=== PATIENT | male | born 1960 | race Caucasian/White ===

== ENCOUNTER 2025-01-14 02:48 | Inpatient (IN) | payer MEDICARE, OTHER, SELFPAY ==
[2025-01-13 21:08] VITALS: BP 138/80
[2025-01-13 21:12] VITALS: BP 138/80
[2025-01-13 21:55] LABS: Glucose - Point of Care 169 mg/dl (70-99)
[2025-01-13 21:56] VITALS: BP 149/68
[2025-01-13 21:58] LABS: Hematocrit 38.6 % (39.0-52.0); Hemoglobin 12.3 g/dL (13.0-18.0); Mean Corp Hgb Conc. 31.9 g/dL (33.0-37.0); Mean Corpuscular Volume 88.5 fL (80.0-94.0); Nucleated Red Blood Cells % 0 % (-); Platelet Count 376 10^3/uL (130-400); Red Cell Dist. Width 14.0 % (11.5-14.5)
[2025-01-13 22:00] VITALS: BP 150/83
--- NOTE | 2025-01-13 22:07 | VATNOTE ---
pt unsure if his port is power injectable. Stated it was inserted in 2017 at [place]. Attempted to access CXR films in past, 2017, and [facility] not providing.
[2025-01-13 22:11] LABS: ALT (SGPT) 18 U/L (0-50); AST (SGOT) 20 U/L (17-59); Albumin 3.7 g/dl (3.5-5.0); Alkaline Phosphatase 121 U/L (38-126); Blood Urea Nitrogen 18 mg/dl (9-20); Calcium 8.8 mg/dl (8.4-10.2); Carbon Dioxide 26 mmol/L (22-30); Chloride 107 mmol/L (98-107); Estimated Creatinine Clearance 116 ml/min; Glucose 176 mg/dl (70-99); Potassium 4.5 mmol/L (3.5-5.1); Sodium 138 mmol/L (135-145); Total Protein 6.9 g/dl (6.3-8.2); Urine Character Cloudy (Clear); eGFR > 60.00
[2025-01-13 22:18] LABS: Urine Squamous Cell 0-2 /LPF (Few)
[2025-01-13 22:19] LABS: Urine Red Blood Cell 50-60 /HPF (0-2); Urine White Cell 30-40 /HPF (0-5)
[2025-01-13 23:26] VITALS: BP 150/81
--- NOTE | 2025-01-13 23:43 | ED.GENMED ---
History of Present Illness
General
Chief Complaint: Dizziness
Source: patient
Exam Limitations: none
Time Seen by Provider: 01/13/25 22:10
Nursing documentation reviewed up to this point in time: agreed with
History of Present Illness
History of Present Illness:
Patient to ED with complaint of weakness, urinary frequency, burning, urgency. Symptoms started 2 weeks ago and continue to worsen. Denies fever but reports chills. +nausea, no vomiting or diarrhea. Brought to ED via EMS for eval.
Past History
Past History
ED Past Medical History: Cancer (colon Ca), CHF, HTN, Hypercholesterolemia, NIDDM, Other (Duodenal ulcers), Other (Colon rectal cancer status post colostomy, chronic back pain, diabetes, recurrent UTIs) and Other (chronic pain, kidney stones,
urinary tract infections, dizziness, Ji's palsy)
ED Past Surgical History: Bowel resection (For treatment of rectal cancer, Ileostomy, Chronic sacral decub and abd open wound) and Other ( Rectal surgery, umbilical hernia surgery, Colostomy hernia repair)
Social History
Tobacco: Non-smoker
Alcohol: Occasional
Personal:
Living: alone
Employment: Disabled
Family History
Family History: Other (Noncontributory)
Review of Systems
Review of Systems
Allergies reviewed?: Yes
All Other Systems: ROS reviewed and negative except as documented in HPI and ROS
Constitutional: Reports fatigue
EENT: Reports no symptoms
Respiratory: Reports no symptoms
Cardiac: Reports no symptoms
ABD/GI: Reports nausea
: Reports dysuria, frequency, flank pain (bilateral) and urgency
Musculoskeletal: Reports no symptoms
Skin: Reports no symptoms
Neurological: Reports weakness
Psychiatric: Reports no symptoms
Phy Exam
General Physical Exam
General Presentation: moderate distress
General age: appears older than age
General Skin: warm and dry
General Habitus: debilitated
Cardiovascular Exam
Cardiovascular Exam: regular rate/rhythm
Pulmonary Exam
Pulmonary Exam: lungs clear and no respiratory distress
Gastrointestinal Exam
Gastrointestinal Exam: normal bowel sounds, non tender, soft, no organomegaly and non distended
Skin Exam
Skin Exam: normal color, warm/dry and no rash
Psychiatric Exam
Psychiatric Exam: normal mood/affect
Sepsis
Sepsis Screening
Sepsis Assessment: Sepsis Ruled Out
Sepsis Screen
Sepsis Screen: Sepsis Ruled Out
Date: 01/14/25
Time: 16:32
Course
Orders/Labs/Results
Orders:
Orders
01/13/25 21:10
Electrocardiogram (*1) Urgent
Reason for Study: Other
Other Reason for Exam: Possible Sepsis
Cardiac Monitoring- Treatment ONCE
IV Insert/Care/Rem.- Treatment PRN
O2 Therapy [RESP] Urgent
Titrate/Wean O2 to maintain O2 sat greater than (%): 93
Special Instructions: TO MAINTAIN CONTINUOUS O2 SATS > OR = 93%
Pulse Ox/cont/shift [RESP] Urgent
Quantity: 1
Special Instructions: CONTINUOUS
01/13/25 21:11
EKG- Treatment ONCE
01/13/25 21:[address] Non Medication Order As Directed
Physician Order: ok to draw 1 set culture from chest wall port
Above order entered?: Yes
01/13/25 21:43
Complete Blood Count/With Diff Urgent
Comprehensive Metabolic Panel Urgent
Lactic Acid Q4H
Comment: ON ICE, CANCEL 2ND ORDER IF FIRST LACTIC ACID LEVEL <2
Urinalysis Reflex To Culture Urgent
Date Specimen was Collected: 01/13/25
Time Specimen was Collected: 21:11
Urine Microscopic Reflex Cult Urgent
Blood Culture Q20M
CLEO Source: Blood/Venous
Specimen Description:
Comment: Urgent from separate sites. If patient screens positive for possible sepsis
Blood Culture Q20M
CLEO Source: Blood/Venous
Specimen Description:
Comment: Urgent from separate sites. If patient screens positive for possible sepsis
Urine Culture Urgent
CLEO Source: U
Specimen Description:
Date Specimen was Collected: 01/13/25
Time Specimen was Collected: 21:11
01/13/25 22:28
CT Abd/pel Without Iv Or Oral Urgent
Comment:
Reason For Exam: bilat flank pain UTI sx
01/13/25 22:46
EKG [Electrocardiogram (*1)] Urgent
Reason for Study: Atrial Flutter
EKG- Treatment ONCE
01/14/25 00:45
Piperacillin/Tazo 3.375 Gram [Zosyn] 3.375 gram in 50 ml IV NOW
01/14/25 02:21
Admit/Transfer Patient As Directed
Co-Sign Provider:
Level of Care: Inpatient admission
Assign to:: Telemetry
Physician / Group: Mayra/Hospitalist
Diagnosis: Complicated UTI and Bowel enterocutaneous fistula
Reason for Telemetry: Arrhythmia
Date to Stop Telemetry: 01/17/25
Time to Stop Telemetry: 11:00
Reason for Hospitalization: Complicated UTI and Bowel enterocutaneous fistula
Expected length of stay greater than two midnights?: Yes
ELOS- Estimated Length of Stay in days: 3
I certify the patient meets the requirements for IP care: Yes
PRN Pain Medication Management As Directed
May give lesser potent ordered pain med per pt: Yes
preference::
Protocol:: Medication orders for pain may be administered in a
manner that supports deferring to patient preference
when the pt is:
- Requesting an ordered lesser potent pain medication.
Least to most potent pain medications are defined
as: acetaminophen < NSAID < tramadol < opioids
(morphine, oxycodone, hydromorphone).
- Requesting a lesser dose of the same medication IF
ORDERED.
- Requesting a less intrusive route of administration
if both routes are prescribed by the provider (PO <
IV).
01/14/25 02:23
Code Status As Directed
Resuscitation Status: Full Code
01/14/25 03:13
HYDROmorphone [Dilaudid] 1 mg IV NOW STA
01/14/25 03:16
0.9% Sodium Chloride 1000 ml [Nss] 1,000 ml IV 75 mls/hr
01/14/25 03:31
Bisacodyl [Dulcolax] 10 mg RECTAL [id number] PRN
Dextrose 50%-Water [Dextrose 50% Syringe] 12.5 grams IV [id number] PRN
Docusate W/Senna [Senokot-S] 1 tablet PO BIDPRN PRN
Glucagon [GlucaGen] 1 mg IM PRN PRN
HYDROmorphone [Dilaudid] 1 mg IV Q4HPRN PRN
Polyethylene Glycol Powder [Miralax] 17 grams PO DAILYPRN PRN
01/14/25 03:31
Consult Notification Routine
Specialty to Notify: Urology
Date consulting provider notified: 01/14/25
Time consulting provider notified: 09:12
Notified:: Other
Comment: tiger text
SURGICAL CONSULT Routine
Consulting Provider: Jesse Love
Was physician already notified: Yes
Reason for consult: enterocutaneous fistula anterior mid abdomen
UROLOGY CONSULT Routine
Consulting Provider: Shaw Taylor
Was physician already notified: No
Comment: UTI, kidney stones
Activity As Directed
Activity Level: With Assistance
Bedside Glucose Monitoring As Directed
Frequency: AC&HS
Additional Instructions:: Change to q6h if pt on TPN, tube feeding or not eating
Nursing to Place Non Medication Order As Directed
Physician Order: Pharmacy to perform med rec in morning and call attending once reconciled to add med list
Above order entered?: Yes
Ostomy Care As Directed
Comment: ileostomy care
Vital Signs As Directed
Frequency: Per unit guidelines
Pulse Ox/spot Check [RESP] Routine
Quantity: 1
DX Deep Vein Thrombosis Video Routine
01/14/25 Breakfast
Cholesterol Lowering
At Your Request: Full Participation
Does patient need a safe tray?: No
Cholesterol Lowering: Sodium, 2 Gram
Piperacillin/Tazo 3.375 Gram [Zosyn] 3.375 gram in 50 ml IV Q6H
01/14/25 06:12
Basic Metabolic Panel IN AM
Complete Blood Count/With Diff IN AM
Glycohemoglobin (HgbA1c) IN AM
01/14/25 07:30
Insulin Aspart Corrective Low [Novolog Flexpen-Low Resistance] See Protocol SC AC
01/17/25 11:00
DC Protocol for Telemetry ONCE
Abnormal Lab Results
01/13/25 01/13/25
21:43 21:53
WBC 11.8 H 10^3/uL
(4.8-10.8)
RBC 4.36 L 10^6/uL
(4.70-6.10)
Hgb 12.3 L g/dL
(13.0-18.0)
Hct 38.6 L %
(39.0-52.0)
MCHC 31.9 L g/dL
(33.0-37.0)
Abs Immat Gran (auto) 0.1 H 10^3/uL
(0-0.05)
Absolute Neuts (auto) 10.4 H 10^3/uL
(1.4-6.5)
Absolute Lymphs (auto) 0.7 L 10^3/uL
(1.2-3.4)
Neutrophils % 88.6 H %
(42.2-75.2)
Lymphocytes % 6.3 L %
(20.5-51.1)
Glucose 176 H mg/dl
(70-99)
Ur Occult Blood Reflex 4+ A
(Negative)
Leukocyte Esterase Rfl 3+ A
(Negative)
Urine RBC 50-60 A /HPF
(0-2)
Urine WBC (Reflex) 30-40 A /HPF
(0-5)
Urine Bacteria (Reflex) Many A
(Negative)
Urine Albumin (Reflex) 2+ A
(Neg - Trace)
POC Glucose 169 H mg/dl
(70-99)
01/13/25 21:43
01/13/25 21:43
Vital Signs
Initial and Last Documented VS:
Initial Vital Signs
BP
138/80
01/13/25 21:08
Last Documented Vital Signs
Temp Pulse Resp BP Pulse Ox
97.8 F 118 14 99/59 92
01/13/25 21:12 01/14/25 15:30 01/14/25 15:30 01/14/25 15:00 01/14/25 15:30
*Pulse Oximetry
SaO2: 97
Oxygen Mode of Delivery: Room air
Patient hypoxic: no
*Critical Care Note
Total Time (30-74mins, 75-104mins- exclusive of procedures): Not Applicable
Update Note
Update Note:
Patient to ED wtih complaint of weakness, UTI symptoms x 2 weeks. Denies fever but reports chills. Labs reviewed. WBC 11.8, lactic normal. He remains afebrile. CT tonight: Suspected smal bowel enterocutaneous fisturla anterior mid abd. Also
wth 3mmleft UVJ stone Patient will be admitted to hospitalist. Dilshad ordered. Consult placed to Dr. Love.
ED Attending Note
-
Portions of this chart may have been created with voice recognition software.� Occasional wrong word or��sound alike� substitutions may have occurred due to the inherent limitations of voice recognition software.
Discharge Plan
Departure
Patient Disposition: Admit
Date of Disposition: 01/14/25
Time of Disposition: 00:45
Presentation/result/management discussed w/ accepting MD/DO: Hospitalist
Patient with high blood pressure during this ER visit?: No
Condition: Fair
Covid-19: Not Applicable
Discharge Problem:
Enterocutaneous fistula, UTI (urinary tract infection), Weakness
Interventions
Interventions:
*Risk Screen - Suicide Last Done: 01/13/25 21:12
*General Assessment Last Done: 01/13/25 21:12
*Neglect/Abuse Screening Last Done: 01/13/25 21:12
*ED- Fall Risk Assessment Last Done: 01/13/25 21:12
*ED COVID-19 Vaccine History Last Done: 01/13/25 21:12
ED- Neurological Assessment Last Done: 01/13/25 21:12
ED Swallowing Screen Last Done: 01/14/25 09:25
[2025-01-14] VITALS (18 sets, daily range): BP systolic 73–152; BP diastolic 43–94; BMI 37.2
[2025-01-14] MEDS: ZOSYN 50 IV ×5 (01:10→23:02)
--- NOTE | 2025-01-14 01:55 | HPS.HSE ---
Family Physician
-
Family Physician: NOT KNOW UNKNOWN - PT DOES
Chief Complaint
-
Weakness and urinary frequency
History of Present Illness
The patient is a 64-year-old gentleman with past medical history significant for colon cancer status post bowel resection, ileostomy, multiple abdominal surgeries, CHF, hypertension, hyperlipidemia, diabetes, chronic pain on oral Dilaudid and high
doses of fentanyl patches (managed by pain specialist for 20 years), who presented to the emergency department via EMS secondary to complaints of weakness, urinary frequency, dysuria, that started 2 weeks prior and continued to worsen. He has been
having chills and nausea associated with the symptoms. He denies fever, no vomiting, no diarrhea.He lives at home alone and has a regular tube dispatcher that comes to house daily. He is mostly non-ambulatory.
Medical History
Past Medical History
Past Medical History: Reports Other
Additional Past Medical History:
depression
GERSON
GERD
HLD
HTN
BPH
COPD
vertigo
anemia
DVT
CAD
CHF
colon ca
chronic abdomen wound
type 2 Dm
Past Surgical History: Reports Other
Additional Past Surgical History:
colon resection with ileostomy
hernia repair
Bowel resection (For treatment of rectal cancer, Ileostomy, Chronic sacral decub and abd open wound) and Other ( Rectal surgery, umbilical hernia surgery, Colostomy hernia repair)
Social History
Tobacco: Non-smoker
Alcohol: None
Drug: None
Personal: Single
Living: Alone (has tube dispatcher)
Family History
Family History: Not pertinent
Allergies / Home Medications
Allergies reflects when Allergies were last updated in [facility].
Home Medications with original date entered in [facility]
Allergy/Medication List:
Allergies
Allergy/AdvReac Type Severity Reaction Status Date / Time
No Known Allergies Allergy Verified 05/23/23 04:59
Home Medications
aspirin 81 mg chewable tablet 81 mg PO DAILY Blood Clot Prevention/Tx 07/02/16
atorvastatin 40 mg tablet 40 mg PO HS High Cholesterol 07/02/16
multivitamin (One Daily Multivitamin tablet) 1 ea PO DAILY Supplement 07/02/16
acetaminophen 325 mg tablet 650 mg PO Q6H PRN temp>100/mild pain 05/23/23
bisacodyl 10 mg rectal suppository (Dulcolax (bisacodyl)) 10 mg PA DAILY PRN if MOM ineffective 05/23/23
cranberry fruit 450 mg tablet (cranberry) 450 mg PO TID Supplement 05/23/23
cyanocobalamin (vitamin B-12) 1,000 mcg tablet (Vitamin B-12) 1,000 mcg PO DAILY Supplement 05/23/23
docusate sodium 100 mg capsule (Colace) 200 mg PO DAILY Constipation 05/23/23
duloxetine 30 mg capsule,delayed release (Cymbalta) 30 mg PO DAILY Depression 05/23/23
duloxetine 60 mg capsule,delayed release (Cymbalta) 60 mg PO DAILY Depression 05/23/23
gabapentin 600 mg tablet 1,200 mg PO HS Neurological Condition 05/23/23
gabapentin 800 mg tablet 800 mg PO BID Neurological Condition 05/23/23
lisinopril 40 mg tablet 40 mg PO DAILY Blood Pressure 05/23/23
magnesium hydroxide 400 mg/5 mL oral suspension (Milk of Magnesia) 30 ml PO DAILY PRN if no BM x 3 days 05/23/23
methenamine hippurate 1 gram tablet (Hiprex) 1 g PO DAILY Urinary Issue 05/23/23
metoprolol tartrate 25 mg tablet 25 mg PO BID Blood Pressure 05/23/23
sennosides 8.6 mg tablet (senna) 8.6 mg PO HS Constipation 05/23/23
sodium phosphates 19 gram-7 gram/118 mL enema (Fleet Enema) 118 ml PA DAILYPRN PRN if dulcolax ineffective 05/23/23
tamsulosin 0.4 mg capsule (Flomax) 0.4 mg PO DAILY Urinary Issue 05/23/23
fentanyl 100 mcg/hr transdermal patch 200 mcg transdermal Q72H apply to clean, dry, hairless area on body #1 ea 05/26/23
ferrous sulfate 325 mg (65 mg iron) tablet (iron) 325 mg PO Q2D Supplement #0 tabs 05/26/23
hydromorphone 8 mg tablet 8 mg PO Q4H PRN moderate/severe pain #5 tabs 05/26/23
pantoprazole 40 mg tablet,delayed release 40 mg PO DAILY #0 tabs 05/26/23
polyethylene glycol 3350 17 gram oral powder packet (HealthyLax) 17 g PO DAILY #0 ea 05/26/23
prochlorperazine maleate 10 mg tablet (Compazine) 10 mg PO Q8H PRN nausea and vomiting #10 tabs 05/26/23
Review of Systems
-
A 12 point ROS was completed and negative except as noted: Yes
Physical Exam
Vital Signs
Vital Signs
Temp Pulse Resp BP Pulse Ox
97.8 F 108 16 138/80 97
01/13/25 21:12 01/13/25 21:12 01/13/25 21:12 01/13/25 21:12 01/13/25 23:46
Physical Exam
General: Appears Chronically Ill and Morbidly Obese
HEENT: NormoCephalic, Anicteric and Moist mucous membranes
Respiratory: Clear
Cardiac: S1/S2 and Regular Rhythm
GI: Soft, Non Tender, Non Distended and Other (ileostomy bag c/d/i)
Musculoskeletal: No Clubbing, No Cyanosis and No Edema
Skin: Warm and Dry
Neuro: AO x 3, No Motor Deficits and Nonfocal/grossly intact
Psych: Calm
Laboratory Results
-
01/13/25 21:43
01/13/25 21:43
Laboratory Results
Lactic Acid Cancelled 01/14/25 01:45
Total Bilirubin 0.3 mg/dl (0.2-1.3) 01/13/25 21:43
AST 20 U/L (17-59) 01/13/25 21:43
ALT 18 U/L (0-50) 01/13/25 21:43
Alkaline Phosphatase 121 U/L (38-126) 01/13/25 21:43
Data Reviewed
-
CT Scan: Report Reviewed by me (Pending formal read, preliminary read as per below)
Impression/Plan
-
IMPRESSION:The patient is a 64-year-old gentleman with past medical history significant for colon cancer status post bowel resection, ileostomy, multiple abdominal surgeries, CHF, hypertension, hyperlipidemia, diabetes who presented to the emergency
department via EMS secondary to complaints of weakness, urinary frequency, dysuria, that started 2 weeks prior and continued to worsen. He has been having chills and nausea associated with the symptoms. He denies fever, no vomiting, no diarrhea.
#UTI with 3 mm stone in the left ureterovesical junction that is new, punctate nonobstructing renal stone on the right, WBC 11.8, urinalysis 4+ blood 3+ leuk esterase 30-40 WBC many bacteria
- Consult to urology
-Continue IV Zosyn
-IVF for 1 liter
-Urine culture pending, blood cultures pending
#Suspected Bowel enterocutaneous fistula anterior mid abdomen, lactic acid levels normal, no evidence for peritoneal signs, discuss w Surgery-consult in am, noted hx of chronic abdominal wound
-General Surgery consultation placed in the emergency department by the ED provider and they are aware of the patient
- Continue IV Zosyn
- Continue supportive management and close monitoring of clinical status
Chronic medical conditions:
Colorectal cancer status post colostomy and ileostomy
CHF, stable
HTN
Hypercholesterolemia
NIDDM, glucose 176
-Sliding scale insulin
-Monitor blood glucose
Duodenal ulcers
Chronic back pain
Recurrent UTIs and kidney stones,
Ji's palsy
ED Past Surgical History: Bowel resection (For treatment of rectal cancer, Ileostomy, Chronic sacral decub and abd open wound) and Other ( Rectal surgery, umbilical hernia surgery, Colostomy hernia repair)
#Med rec will need to be completed by pharmacy in am- pt did not bring his med list with him, and is not able to reconcile meds tonight
DVT proph-SCDs
Full Code
[2025-01-14] MEDS: DILAUDID 1 MG IV ×4 (03:21→17:50)
[2025-01-14] MEDS: NSS 1000 IV ×2 (03:24→18:00)
[2025-01-14 06:23] LABS: Hematocrit 35.5 % (39.0-52.0); Hemoglobin 11.4 g/dL (13.0-18.0); Mean Corp Hgb Conc. 32.1 g/dL (33.0-37.0); Mean Corpuscular Volume 89.2 fL (80.0-94.0); Nucleated Red Blood Cells % 0 % (-); Platelet Count 374 10^3/uL (130-400); Red Cell Dist. Width 14.1 % (11.5-14.5)
[2025-01-14 06:44] LABS: Blood Urea Nitrogen 18 mg/dl (9-20); Calcium 8.7 mg/dl (8.4-10.2); Carbon Dioxide 28 mmol/L (22-30); Chloride 107 mmol/L (98-107); Estimated Creatinine Clearance > 125 ml/min; Glucose 128 mg/dl (70-99); Potassium 4.7 mmol/L (3.5-5.1); Sodium 139 mmol/L (135-145); eGFR > 60.00
--- NOTE | 2025-01-14 07:58 | CON.GS ---
Addendum entered and electronically signed by Jeremías Mayen MD 01/14/25 17:06:
Patient seen and examined.
Patient is a 64 yo M with a complex past surgical history and medical history including obesity, HTN, permanent A-fib (not on anticoagulation), CHF, NIDDM, chronic pain, BPH, rectal cancer s/p chemo XRT and partial colectomy in 2001 followed by
completion colectomy with end ileostomy at [facility] in 2014, and multiple ventral hernia repairs with mesh prior to his completion colectomy in 2014. Mr Jackson presents with increased urinary frequency and dysuria. He has been found to have an
obstructing LEFT ureteral calculous and positive UTI with signs of urosepsis. In the course of his workup he was noted to have chronic abdominal wounds with concern for possible ECF formation. Mr. Jackson states that these wounds have been present
for years. The first has been present for 10 years and has been closing slowly (from [id number] to 9x9cm recently) and recently s/p skin graft. The second has been present for 2 years and is 2/2 accidental trauma to the skin. He lives in a SNF but
performs much of his own wound dressing changes and wound care. Reports being careful to keep area clean due to c/f nearby ostomy pouch. Pt denies any new pain around wound areas, denies any bilious or green/brown discharge from abdominal wounds.
Only notes occasional serous discharge. No new changes. Of note he follows closely with a wound care doctor in [place].
General: NAD
GI: soft, NT, distended, large R-sided abdominal hernia, not reducible, non-peritoneal, ostomy pouch on L abdomen, mid-abdomen smaller superficial wound without drainage, R abdomen large superficial wound without drainage, clean dressings on both
lifted for exam, healthy granulation tissue, no drainage of bilious contents, non-tender, no chronic scarring, no induration, no surrounding erythema
Patient is a 64 yo M p/w urosepsis secondary to UTI and obstructing nephrolithiasis
Found to have chronic abdominal wounds likely related to increased tension and pressure from his large abdominal hernia, possibly related to a chronic mesh infection. No clear evidence of a ECF on exam. No indication for surgical intervention at
this time. Additionally, patient has no desire at this time for surgical intervention as a relates to these wounds. Recommend continued wound care and outpatient follow-up with his alternative financing specialist.
-- No indication plans for surgery
-- Continue local wound care
-- Outpatient follow-up with wound care doctor as previously scheduled.
-- Please call with questions or concerns.
Original Note:
Consultation
-
Date/Time Consultation Requested: 01/14/25, 1am
Date/Time Consultation Performed: 01/14/25, 7:15am
Requesting Provider: Lacey Nunez
Performing Provider: Jeremías Mayen
Reason for Consultation: c/f SB enterocutaneous fistula
Medical History
-
Chief Complaint: chronic abdominal wounds
History of Present Illness:
Rogelio Jackson is a 64yo M with a PMH notable for colon cancer s/p multiple bowel resections and colostomy/ileostomy repairs ([id number]), umbilical hernia s/p repair, CHF, HTN, DM-II, and chronic pain (on dilaudid & fentanyl patch) who presented to
ED on 01/13 with urinary symptoms, with general surgery consulted to uma for possible enterocutaneous fistula seen on 01/[address] from OSH.
Pt presented to ED with urinary frequency & dysuria, was worked up for UTI. When reviewing 01/13/25 CT prior to presentation, providers noted c/f possible small bowel enterocutaneous fistula. Pt states that he has had two chronic wounds on his
abdomen. The first has been present for 10 years and has been closing slowly (from [id number] to 9x9cm recently) and recently s/p skin graft. The second has been present for 2 years and is 2/2 accidental trauma to the skin. He lives in a SNF but
performs much of his own wound dressing changes and wound care. Reports being careful to keep area clean due to c/f nearby ostomy pouch. Pt denies any new pain around wound areas, denies any bilious or green/brown discharge from abdominal wounds.
Only notes occasional serous discharge. No new changes.
In ED, pt started on IV Zosyn and IVF and dilaudid 1mg q4hr. Repeat non-contrast abdominal CT a/p performed in ED, with report:
'There is a large abdominal wall defect from the left paracentral through anterolateral abdominal and pelvic wall, with a large hernia extending toward the right. This contains loops of small and large bowel with no evidence for obstruction. A
portion of the right kidney and a portion of the pancreas also extends into the base of this hernia. There is a small to moderate amount of subcutaneous edema along the right lateral and inferior margin of the hernia, perhaps slightly increased
compared to examination of May 23, 2023. No significant fluid within the hernia sac itself. Along the anterior margin of the hernia sac, there is significant thinning and basically loss of subcutaneous fat anterior to the hernia. There are
bowel loops which extend close to the anterior margin of the hernia sac. Some irregular soft tissue density and air density just off the anterior margin of the hernia sac, as seen on sagittal images 27 through 40. Please correlate with any drainage
in this region. Preliminary report from [facility] raises concern for an enterocutaneous fistula.'
This morning, pt feeling that wounds are well managed, states he does not want additional surgery.
Past Medical History
Past Medical History: Cancer (colorectal), CHF, HTN, Hypercholesterolemia and Other (chronic pain)
Past Surgical History: Bowel Resection (colon cancer resection, colectomy, ileostomy, rectal cancer resection) and Hernia Repair (umbilical hernia repair)
Allergies / Home Medications
Allergy/AdvReac Type Severity Reaction Status Date / Time
No Known Allergies Allergy Verified 05/23/23 04:59
�Medication �Instructions �Recorded �Confirmed �Type
aspirin 81 mg chewable tablet 81 mg PO DAILY Blood Clot 07/02/16 01/14/25 History
Prevention/Tx
atorvastatin 40 mg tablet 40 mg PO HS High Cholesterol 07/02/16 01/14/25 History
multivitamin (One Daily 1 ea PO DAILY Supplement 07/02/16 01/14/25 History
Multivitamin tablet)
acetaminophen 325 mg tablet 650 mg PO Q6H PRN temp>100/mild 05/23/23 01/14/25 History
pain
bisacodyl 10 mg rectal suppository 10 mg MO DAILY PRN if MOM 05/23/23 01/14/25 History
(Dulcolax (bisacodyl)) ineffective
cranberry fruit 450 mg tablet 450 mg PO TID Supplement 05/23/23 01/14/25 History
(cranberry)
cyanocobalamin (vitamin B-12) 1,000 mcg PO DAILY Supplement 05/23/23 01/14/25 History
1,000 mcg tablet (Vitamin B-12)
docusate sodium 100 mg capsule 200 mg PO DAILY Constipation 05/23/23 01/14/25 History
(Colace)
duloxetine 30 mg capsule,delayed 30 mg PO DAILY Depression 05/23/23 01/14/25 History
release (Cymbalta)
duloxetine 60 mg capsule,delayed 60 mg PO DAILY Depression 05/23/23 01/14/25 History
release (Cymbalta)
gabapentin 600 mg tablet 1,200 mg PO HS Neurological 05/23/23 01/14/25 History
Condition
gabapentin 800 mg tablet 800 mg PO BID Neurological 05/23/23 01/14/25 History
Condition
lisinopril 40 mg tablet 40 mg PO DAILY Blood Pressure 05/23/23 01/14/25 History
magnesium hydroxide 400 mg/5 mL 30 ml PO DAILY PRN if no BM x 3 05/23/23 01/14/25 History
oral suspension (Milk of Magnesia) days
methenamine hippurate 1 gram 1 g PO DAILY Urinary Issue 05/23/23 01/14/25 History
tablet (Hiprex)
metoprolol tartrate 25 mg tablet 25 mg PO BID Blood Pressure 05/23/23 01/14/25 History
sennosides 8.6 mg tablet (senna) 8.6 mg PO HS Constipation 05/23/23 01/14/25 History
sodium phosphates 19 gram-7 118 ml MO DAILYPRN PRN if dulcolax 05/23/23 01/14/25 History
gram/118 mL enema (Fleet Enema) ineffective
tamsulosin 0.4 mg capsule (Flomax) 0.4 mg PO DAILY Urinary Issue 05/23/23 01/14/25 History
fentanyl 100 mcg/hr transdermal 200 mcg transdermal Q72H apply to 05/26/23 01/14/25 Rx
patch clean, dry, hairless area on body
#1 ea
ferrous sulfate 325 mg (65 mg 325 mg PO Q2D Supplement #0 tabs 05/26/23 01/14/25 Rx
iron) tablet (iron)
hydromorphone 8 mg tablet 8 mg PO Q4H PRN moderate/severe 05/26/23 01/14/25 Rx
pain #5 tabs
pantoprazole 40 mg tablet,delayed 40 mg PO DAILY #0 tabs 05/26/23 01/14/25 Rx
release
polyethylene glycol 3350 17 gram 17 g PO DAILY #0 ea 05/26/23 01/14/25 Rx
oral powder packet (HealthyLax)
prochlorperazine maleate 10 mg 10 mg PO Q8H PRN nausea and 05/26/23 01/14/25 Rx
tablet (Compazine) vomiting #10 tabs
Review of Systems
-
History Source: Patient
Constitutional: Fatigue and Chills
: Dysuria and Urgency
Skin: Other (chronic abdominal wounds w serous drainage)
A 10 point review of systems was completed, and was negative except as per HPI.
Physical Exam
Vital Signs
Temp Pulse Resp BP Pulse Ox
97.8 F 79 8 95/51 93
01/13/25 21:12 01/14/25 05:45 01/14/25 05:45 01/14/25 05:00 01/14/25 05:15
01/13/25 01/14/25 01/15/25
06:59 06:59 06:59
Actual Weight 119.6 kg
Lab Results
01/14/25 06:12
01/14/25 06:12
WBC 9.9 10^3/uL (4.8-10.8) 01/14/25 06:12
Hgb 11.4 g/dL (13.0-18.0) L 01/14/25 06:12
Hct 35.5 % (39.0-52.0) L 01/14/25 06:12
Plt Count 374 10^3/uL (130-400) 01/14/25 06:12
Abs Immat Gran (auto) 0.1 10^3/uL (0-0.05) H 01/14/25 06:12
Neutrophils % 88.8 % (42.2-75.2) H 01/14/25 06:12
Physical Exam
General: Well Developed
HEENT: Normocephalic, Anicteric and Atraumatic
Respiratory: Non Labored Respirations
GI: Soft, Non Tender, Distended (large R-sided abdominal hernia) and Other (ostomy pouch on L abdomen; mid-abdomen smaller superficial wound without drainage; R abdomen large superficial wound without drainage; clean dressings on both lifted for
exam; no draining tunnels noted; no surrounding erythema )
Skin: Warm and Dry
Neuro: Awake, Alert and Oriented
Psych: Calm
Data Reviewed
-
CT Scan: Image Personally Visualized and interpreted
Labs: Labs Reviewed by me
Old Records: Reviewed
Critical Care Time (in minutes): 45
Total Time Spent with Patient (in minutes): 20
Assessment / Plan
-
Rogelio Jackson is a 64yo M with a PMH notable for colon cancer s/p multiple bowel resections and colostomy/ileostomy repairs ([id number]), umbilical hernia s/p repair, CHF, HTN, DM-II, and chronic pain (on dilaudid & fentanyl patch) who presented to
ED on 01/13 with urinary symptoms, with general surgery consulted to eval for possible enterocutaneous fistula seen on 01/[address] from OSH.
Assessment: Pt clinical symptoms and physical exam not c/f active enterocutaneous fistula, given lack of drainage from wounds c/w bowel secretions. Wounds appear shallow and patient has not noted any new drainage. CT imaging from OSH unable to be
viewed; CT imaging from 01/13 equivocal for fistula, with read requesting clinical correlation. Lack of subcutaneous fat and close proximity of herniated bowel loops to skin increase risk for fistula development. Perhaps subclinical fistula or
irritation from bowel proximity is exacerbating chronic abd wounds. However, patient without clinical sx c/f infection around abd wounds, and pt desires to avoid additional procedures. AVSS, normal WBC (although elevation not unexpected given
current UTI). No need for surgical intervention at this point in time. Favor conservative mgmt - closely monitor for any new drainage from abdominal wound(s), maintain adequate nutritional status, keep abdominal wound areas & skin clean. Eventual
candidate for abdominal hernia repair but given complexity of repair & c/f loss of domain, would require consultation at tertiary care facility.
Plan:
- Continue proper wound care, keep area clean
- Ensure proper nutrition maintained
- No need for continuing antibiotics from surgical perspective
- Consider referral to [facility] surgery ([facility]) for eval of candidacy for abd hernia repair
- Surgery signed off
[2025-01-14 08:40] LABS: Glycohemoglobin (HgbA1c) 5.9 % (4.0-5.6)
--- NOTE | 2025-01-14 08:56 | W.PN.HOSP.TC ---
Today's Communication/Plan
-
see A/P
Assessment / Plan
Assessment / Plan
HPI: 64-year-old gentleman with past medical history significant for colon cancer status post bowel resection, ileostomy, multiple abdominal surgeries, CHF, hypertension, hyperlipidemia, diabetes, chronic pain on oral Dilaudid and high doses of
fentanyl patches (managed by pain specialist for 20 years), who presented to the emergency department via EMS secondary to complaints of weakness, urinary frequency, dysuria, that started 2 weeks prior and continued to worsen. He has been having
chills and nausea associated with the symptoms. He denies fever, no vomiting, no diarrhea. He lives at home alone and has a regular mica sizer that comes to house daily. He is mostly non-ambulatory.
A/P:
# Complicated UTI with 3 mm stone in the left ureterovesical junction that is new, punctate nonobstructing renal stone on the right
# h/o recurrent UTIs and kidney stones
Follow CT [facility] formal report
Follow urine culture and blood cultures
Continue IV Zosyn
Consulted urology
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
# noted hx of chronic abdominal wound
Follow CT [facility] formal report
lactic acid levels normal, no evidence for peritoneal signs
Surgery consulted
Continue IV Zosyn as noted above
Continue supportive management and close monitoring of clinical status
Chronic medical conditions:
# Colorectal cancer status post colostomy and ileostomy
# CHF, stable
# HTN
# Hypercholesterolemia
# NIDDM, Sliding scale insulin Monitor blood glucose
# Duodenal ulcers
# Chronic back pain
# Ji's palsy
# Atrial flutter/?paroxysmal atrial fibrillation, on metoprolol 25 mg twice daily for rate control, poor candidate for systemic anticoagulation due to chronic mild active bleeding at his abdominal wound site/skin graft (which has been present for
years).
# ER Past Surgical History of Bowel resection (For treatment of rectal cancer, Ileostomy, Chronic sacral decub and abd open wound) and Other (Rectal surgery, umbilical hernia surgery, Colostomy hernia repair)
DVT proph- Lovenox SQ
Full Code
Anticipated Discharge: > 48 hours
Subjective/Interval History
-
Date of Service: January 14, 2025
Objective Data
-
Labs:
Laboratory Results
01/13/25 01/14/25
21:43 06:12
WBC 11.8 H 9.9
Hgb 12.3 L 11.4 L
Hct 38.6 L 35.5 L
Plt Count 376 374
Sodium 138 139
Potassium 4.5 4.7
Chloride 107 107
Carbon Dioxide 26 28
BUN 18 18
Creatinine 0.8 0.7
Glucose 176 H 128 H
Calcium 8.8 8.7
Total Bilirubin 0.3
AST 20
ALT 18
Alkaline Phosphatase 121
Vital Signs:
Vital Signs
Temp Pulse Resp BP Pulse Ox
36.6 C 122 20 73/43 93
01/13/25 21:12 01/14/25 08:30 01/14/25 08:30 01/14/25 08:00 01/14/25 05:15
I&O
01/13/25 01/14/25 01/15/25
06:59 06:59 06:59
Intake Total 50 / 50
Output Total 500 / 500
Balance -450 / -450
Review of Systems
-
History Source: Patient
Genitourinary: Reports Other (pressure with urination, improved )
Physical Exam
-
General: Well Developed, Well Nourished, No Apparent Distress, Comfortable, Conversant, Appears Chronically Ill and Obese; Negative Respiratory Distress
HEENT: Normocephalic, Atraumatic, Nose Appears Normal and Ears Appear Normal; Negative Oxygen
Respiratory: Clear to Auscultation and Non Labored Respirations; Negative Accessory Resp Muscle Use
Cardiac: Regular Rhythm and S1/S2
GI: Soft, Nontender, Nondistended and Ostomy
Skin: Other (see wound care note )
Neuro: Awake, Alert, Oriented and AO x 3
Psych: Calm and Intact Judgement/Insight
Data Reviewed
-
Labs: Labs Reviewed by me
--- NOTE | 2025-01-14 09:14 | EDRN ---
Dr. Malik zuniga texted for ordered urology consult at this time.
[2025-01-14] MEDS: NOVOLOG FLEXPEN-LOW RESISTANCE SC ×3 (09:25→17:44)
[2025-01-14 09:27] LABS: Glucose - Point of Care 107 mg/dl (70-99)
--- NOTE | 2025-01-14 10:04 | EDRN ---
Amina wound/coil connector in room w/ pt.
--- NOTE | 2025-01-14 11:01 | EDRN ---
This RN requested med rec for pharmacist this am as Dr. Calabrese ordered it. This RN updated Dr. Calabrese about med rec progress as pt states he came in w/ his phone and ziplock bag of medications in individual ziplock bags, labeled. This RN called radio
room and Pt Bell/ Hanane checked ambulance and station and found no bag of meds but are still attempting to call the job counselor who brought pt to ER. Pt is calling friend Davon who is going to his house for ostomy supplies and check for his
phone to also check for his bag of medications. TT to Dr. Calabrese-->
Med rec update. Pharmacist has attempted to do med rec w/ pt. Pt unable to do med rec w/ out his meds. Pt states he brought his meds to ED. No meds found in ED. This RN called ambulance company and no meds in ambulance or station. They are trying to
contact job counselor from last night (he arrived at 21:00 last night). To continue pt has his research staff member going to his house to get his ostomy supplies and he has called him to look for medication bag as well.
--- NOTE | 2025-01-14 11:01 | CM ---
Addendum entered by Belinda Greer 01/14/25 11:12:
Pt states current address is [address], [place] [address]
Original Note:
CM reviewed chart and met with pt bedside in ED. Pt rents rooms in modular home, has 2 bedrooms and full BA, shares kitchen with jessenia. He is mostly in bed, does ambulate short distances with rolling walker, also uses wheelchair.
Needs assistance with ADLs and personal care. Has ostomy/
Has aides through [facility], Monday through Monday from 9-430, Monday 9-330 and Monday 12-630.
Pt also has VN through [facility], per pt, therapy discharged him last week.
Malia from [facility] updated on pt admission and diagnosis.
PCP: [facility]
Pharmacy: [facility] for narcotics, [facility] for all other meds.
CM will continue to follow for discharge planning needs.
--- NOTE | 2025-01-14 11:13 | EDRN ---
Pharmacist Yuly in room attempting med rec w/ pt at this time.
--- NOTE | 2025-01-14 11:35 | EDRN ---
Pt moved to special bed at this time. Am texting Shelley to find out how bed works.
--- NOTE | 2025-01-14 12:08 | WOUNDNOTE ---
MID ABDOMINAL WOUND
--- NOTE | 2025-01-14 12:09 | WOUNDNOTE ---
RIGHT SIDED ABDOMINAL WOUND
--- NOTE | 2025-01-14 12:13 | WOUNDNOTE ---
[facility] RN NOTE: Reviewed chart and met with patient. Patient has an extensive medical history and lives at home with caregivers. He is fully independent with ostomy that he has had for over 20 years (caregivers to bring in supplies) and he currently
has no ostomy needs or concerns. Abdominal wounds are from a graft sites approximately 10 years ago. Patient provides own wound care on his own schedule and would prefer to keep up his schedule while in the hospital. TT with Dr. Calabrese and plan is for
patient to continue own wound care and staff can help him with supplies as needed. See worklist for measurements and details of abdominal wounds. 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 No open areas noted.
Fungal appearing skin noted on buttocks. Patient reports he prefers use of fungal ointment and uses often at home. Will recommend antifungal ointment BID. He demonstrated good ability to turn in bed and stated importance of off-loading. This ticket writer
called for air bed and patient was later transferred to [facility]. RUDI Fritz given update and orders confirmed with Dr. Calabrese. Will follow as needed.
--- NOTE | 2025-01-14 12:31 | EDRN ---
Dr. Taylor in room w/ pt and pt is to go to OR today rayna 17:00 as an add on for renal calculi.
--- NOTE | 2025-01-14 13:09 | EDRN ---
Pt's HR has been 120's to 150's. This RN TT'd Dr. Calabrese who responded and requested BP which was sent to her and ordered an IV lopressor to help decrease rate.
[2025-01-14] MEDS: LOPRESSOR 5 MG IV (13:14)
--- NOTE | 2025-01-14 13:30 | EDRN ---
Pt received lopressor for high HR and then said lower extremity pain increased to 7/10 and wanted pain medication which were both administered at this time. Pt emptied his own colostomy bag at this time and voided again in urinal a second 100 mL.
--- NOTE | 2025-01-14 13:35 | W.SUR.PREOP ---
Pre-Operative Surgical Note
-
I have examined this patient prior to the performance of the scheduled procedure.
The patient's condition is unchanged from the time of the current History and
Physical and the patient is able to undergo the scheduled procedure.
CTAP reviewed => 3 mm left UVJ stone w/ mild to moderate left hydronephrosis and perinephric stranding
UA +WBCs/RBCs, many bacteria
UCx pending
H/o rUTIs in last 3-4 mo per patient - recently started on Hiprex
H/o rectal cancer s/p surgery and XRT ('required partial removal of bladder')
A/P:
Obstructing left UVJ stone
cUTI
- To OR for left ULS
- Continue IV antibiotics pending UCx S/S
- Surgical consent to be signed in preop
Detailed discussion including SDM had w/ patient - reviewed risks, benefits, alternatives, and potential complications of ureteroscopy/laser lithotripsy/stone extraction/stent placement.
Potential risks and complications reviewed - including but not limited to urosepsis, bleeding, ureteral bladder injury, risk of ureteral stricture formation, need for prolonged urinary drainage, need for additional procedures/surgeries.
--- NOTE | 2025-01-14 13:43 | EDRN ---
Just spoke w/ Pharmacist Yuly and med rec has been completed and she TT'd Dr. Calabrese to inform MD it was done.
[2025-01-14 13:53] LABS: Glucose - Point of Care 99 mg/dl (70-99)
--- NOTE | 2025-01-14 13:57 | CON.CAR ---
Addendum entered and electronically signed by Abdelrahman Garcia MD 01/14/25 15:46:
I saw and examined the patient.
The LEAD MOBILE DEVELOPER's note was reviewed and I agree with the note.
Comment: He will be at increased risk for cardiac complications but the risk for a non-high risk procedure seems acceptable. He reports that some BP have been low so we may use LESS lisinopril and focus on metoprolol for BP and rate control. Not an
acceptable anticoagulation candidate.
Original Note:
Consultation
Consultation Request
Date/Time Consultation Requested: 01/14/2025 13:45
Date/Time Consultation Performed: 01/14/2025 14:00
Requesting Provider: Dr. Calabrese
Performing Provider: NOA Renteria for Dr. Garcia
Reason for Consultation: Atrial flutter rate control
Medical History
-
Chief Complaint: Abdominal pain
History of Present Illness:
Rogelio Jackson is a 64-year-old chronically ill alf bound male, with permanent atrial fibrillation (not on oral anticoagulation), HFrEF (recovered LVEF), colorectal cancer status post colectomy with colostomy and now ileostomy, hypertension,
dyslipidemia, type 2 diabetes mellitus, morbid obesity, and chronic pain syndrome who presented to the emergency department with a chief complaint of weakness. He endorsed associated urinary frequency, urgency, and burning. He believes his
symptoms started around 2 weeks ago and continued to worsen. He also had chills. Abdomen pelvis revealed a 3 mm stone in the left uterovesical junction. Cardiology was consulted to assist with rate control in the setting of atrial
fibrillation/flutter.
Past Medical History
Past Medical History: Arrhythmias (Permanent atrial fibrillation), Cancer (colon S/P colectomy), CHF (recovered), HTN, Hypercholesterolemia, IDDM and Other (BPH)
Past Surgical History: Bowel Resection
Social History
Tobacco: Non-Smoker
Alcohol: None
Drug: None
Personal:
Living: [facility]
Employment: Disabled
Family History
Family History: CAD (Both parents with CABG in sixth and seventh decades.)
Allergies / Home Medications
Allergy/AdvReac Type Severity Reaction Status Date / Time
No Known Allergies Allergy Verified 05/23/23 04:59
�Medication �Instructions �Recorded �Confirmed �Type
atorvastatin 40 mg tablet 40 mg PO HS High Cholesterol 07/02/16 01/14/25 History
multivitamin (One Daily 1 ea PO DAILY Supplement 07/02/16 01/14/25 History
Multivitamin tablet)
acetaminophen 325 mg tablet 650 mg PO DAILY Pain 05/23/23 01/14/25 History
cranberry fruit 450 mg tablet 1,000 mg PO DAILY Supplement 05/23/23 01/14/25 History
(cranberry)
cyanocobalamin (vitamin B-12) 1,000 mcg PO DAILY Supplement 05/23/23 01/14/25 History
1,000 mcg tablet (Vitamin B-12)
docusate sodium 100 mg capsule 200 mg PO DAILY Constipation 05/23/23 01/14/25 History
(Colace)
gabapentin 600 mg tablet 1,200 mg PO HS Neurological 05/23/23 01/14/25 History
Condition
gabapentin 800 mg tablet 800 mg PO BID@0800,1600 05/23/23 01/14/25 History
Neurological Condition
metoprolol tartrate 25 mg tablet 25 mg PO DAILY Blood Pressure 05/23/23 01/14/25 History
sennosides 8.6 mg tablet (senna) 8.6 mg PO DAILY Constipation 05/23/23 01/14/25 History
fentanyl 100 mcg/hr transdermal 200 mcg transdermal Q72H apply to 05/26/23 01/14/25 Rx
patch clean, dry, hairless area on body
#1 ea
prochlorperazine maleate 10 mg 10 mg PO Q8H PRN nausea and 05/26/23 01/14/25 Rx
tablet (Compazine) vomiting #10 tabs
Vitamin A And D Supple 1 dose PO DAILY 01/14/25 01/14/25 History
acetaminophen 325 mg tablet 650 mg PO Q6H PRN mild pain 01/14/25 01/14/25 History
(Tylenol)
ascorbic acid (vitamin C) 500 mg 1,000 mg PO DAILY 01/14/25 01/14/25 History
tablet (Vitamin C)
aspirin 81 mg tablet,delayed 81 mg PO DAILY 01/14/25 01/14/25 History
release
bisacodyl 5 mg tablet 10 mg PO DAILY 01/14/25 01/14/25 History
duloxetine 30 mg capsule,delayed 30 mg PO DAILY 01/14/25 01/14/25 History
release
duloxetine 60 mg capsule,delayed 60 mg PO DAILY 01/14/25 01/14/25 History
release
famotidine 20 mg tablet 20 mg PO DAILY 01/14/25 01/14/25 History
ferrous sulfate 325 mg (65 mg 325 mg PO DAILY Supplement 01/14/25 01/14/25 History
iron) tablet (iron)
hydromorphone 8 mg tablet 8 mg PO Q4HPRN PRN moderate/severe 01/14/25 01/14/25 History
pain
lisinopril 20 mg tablet 20 mg PO DAILY 01/14/25 01/14/25 History
magnesium oxide 250 mg PO DAILY 01/14/25 01/14/25 History
methenamine hippurate 1 gram tablet 1 g PO BID 01/14/25 01/14/25 History
omeprazole 20 mg capsule,delayed 20 mg PO DAILY 01/14/25 01/14/25 History
release
ondansetron HCl 4 mg tablet 4 mg PO TIDPRN PRN nausea 01/14/25 01/14/25 History
polyethylene glycol 3350 17 gram 17 g PO DAILYPRN PRN constipation 01/14/25 01/14/25 History
oral powder packet (HealthyLax)
potassium 99 mg tablet 99 mg PO DAILY 01/14/25 01/14/25 History
vitamin E 670 mg (1,000 unit) 670 mg PO DAILY Supplement 01/14/25 01/14/25 History
capsule
vitamin K2 40 mcg tablet 8.6 mcg PO DAILY 01/14/25 01/14/25 History
Review of Systems
-
History Source: Patient
All other systems: Negative unless noted
Constitutional: Fatigue
EENT: No Symptoms
Respiratory: No Symptoms
Cardiac: No Symptoms
Abdomen/GI: No Symptoms
: Frequency and Urgency
Musculoskeletal: No Symptoms
Skin: No Symptoms
Neurological: No Symptoms
Endocrine: No Symptoms
Hematologic/Lymphatic: No Symptoms
Physical Exam
Vital Signs
Temp Pulse Resp BP Pulse Ox
97.8 F 138 12 116/89 94
01/13/25 21:12 01/14/25 13:14 01/14/25 13:00 01/14/25 13:14 01/14/25 13:00
Lab Results
01/14/25 06:12
01/14/25 06:12
Physical Exam
General: Well Developed, Well Nourished, No Apparent Distress and Comfortable
HEENT: Normocephalic, Anicteric and Moist Mucous Membranes
Respiratory: Clear and Non Labored Respirations
Cardiac: S1/S2 and Regular Rhythm
Breast: Deferred by me
GI: Soft, Non Tender, Non Distended and Normal Bowel Sounds
Rectal: Deferred by Provider
Genito-urinary: No Costovertebral Tender
Musculoskeletal: No Clubbing and No Cyanosis
Skin: Warm and Dry
Neuro: AO x 3
Hematologic/Lymphatic: No Lymphadenopathy
Psych: Calm
Impression / Plan
-
I/P: 64M with permanent atrial fibrillation (not on oral anticoagulation), HFrEF (recovered LVEF), colorectal cancer status post colectomy with colostomy and now ileostomy, hypertension, dyslipidemia, type 2 diabetes mellitus, morbid obesity, and
chronic pain syndrome who presented to the emergency department with a chief complaint of weakness.
Outpatient spray drier operator helper: Dr. Garcia (lost to follow-up)
Atrial fibrillation/flutter, likely permanent
- Home medication show metoprolol tartrate 25 mg daily, this should be twice daily
- No plans to restore sinus rhythm
- Oral Anticoagulation: None
- [id number]: Score at least 5 (Heart failure, HTN, Diabetes Mellitus, Vascular disease, age 65-74)
Preoperative assessment
- Elevated risk, cannot complete 4 METS at baseline
- He is on heart failure, no symptoms of angina
Obstructing UVJ stone, OR today with Dr. Taylor
Gastroparesis with constipation
Chronic pain syndrome, requiring narcotics
Prior colorectal cancer, S/P colostomy now with ileostomy
Dyslipidemia, on atorvastatin
Chronic wound, in the setting of prior skin graft
Data Reviewed
-
EKG: Report Reviewed by me (Atrial flutter, 4:1 conduction, rate 73)
CT Scan: Report Reviewed by me (A/P: 3 mm obstructing left ureterovesical junction calculus. 2 mm right nephrolith. No evidence for right ureteral calculus.)
Labs: Labs Reviewed by me
Old Records: Reviewed
--- NOTE | 2025-01-14 15:47 | EDRN ---
Pt states he cannot find his insurance card. pt was left in room looking though his wallet. Not seen anywhere in room at this time.
[2025-01-14] MEDS: NEURONTIN PO (15:53)
--- NOTE | 2025-01-14 15:54 | EDRN ---
Sent Dr. Calabrese a note that HR now 100-110 at this time. Pt just found his insurance card in the back of his phone.
--- NOTE | 2025-01-14 17:24 | W.PN.UPDATE ---
Update Note
Progress Note Update
Seen by Cardiology for permanent atrial fibrillation (not on anticoagulation).
Deemed high risk candidate for low risk surgery.
Small 2 mm stone @left UVJ w/o fevers, leukocytosis, or PATRIAC.
Given UA findings indicative of UTI (UCx pending), recommend stone extraction w/ possible stent placement.
To OR tomorrow afternoon for left ULS
Diet ordered by Hospitalist
[email or web address]
D/w Dr. Calabrese.
[2025-01-14 17:37] LABS: Glucose - Point of Care 92 mg/dl (70-99)
[2025-01-14] MEDS: LOVENOX 40 MG SC (17:51)
[2025-01-14] MEDS: REMOVE DURAGESIC PATCH 2 PATCH REMOVE (18:13)
[2025-01-14] MEDS: REMOVE DURAGESIC PATCH REMOVE (18:35)
[2025-01-14] MEDS: SENOKOT-S 1 TABLET PO (20:30)
[2025-01-14] MEDS: LOPRESSOR 25 MG PO (20:36)
[2025-01-14] MEDS: ANTIFUNGAL CLEAR 1 APPLIC TOPICAL (20:36)
[2025-01-14] MEDS: LIPITOR 40 MG PO (21:26)
[2025-01-14] MEDS: NEURONTIN 1200 MG PO (21:26)
[2025-01-14] MEDS: COMPAZINE 5 MG IV (22:16)
[2025-01-14 22:26] LABS: Glucose - Point of Care 90 mg/dl (70-99)
[2025-01-15] VITALS (15 sets, daily range): BP systolic 96–141; BP diastolic 60–97; BMI 37.0
[2025-01-15] MEDS: DILAUDID 1 MG IV ×2 (00:13→17:49)
[2025-01-15 05:21] LABS: Hematocrit 31.3 % (39.0-52.0); Hemoglobin 10.2 g/dL (13.0-18.0); Mean Corp Hgb Conc. 32.6 g/dL (33.0-37.0); Mean Corpuscular Volume 89.4 fL (80.0-94.0); Platelet Count 310 10^3/uL (130-400); Red Cell Dist. Width 14.4 % (11.5-14.5)
[2025-01-15] MEDS: ZOSYN 50 IV ×3 (05:29→17:48)
[2025-01-15 05:48] LABS: Blood Urea Nitrogen 16 mg/dl (9-20); Calcium 8.2 mg/dl (8.4-10.2); Carbon Dioxide 28 mmol/L (22-30); Chloride 108 mmol/L (98-107); Estimated Creatinine Clearance 113 ml/min; Glucose 98 mg/dl (70-99); Magnesium 1.7 mg/dl (1.6-2.3); Potassium 4.3 mmol/L (3.5-5.1); Sodium 140 mmol/L (135-145); eGFR > 60.00
[2025-01-15 08:00] LABS: Glucose - Point of Care 82 mg/dl (70-99)
--- NOTE | 2025-01-15 08:29 | W.SUR.PREOP ---
Pre-Operative Surgical Note
-
I have examined this patient prior to the performance of the scheduled procedure.
The patient's condition is unchanged from the time of the current History and
Physical and the patient is able to undergo the scheduled procedure.
Seen by Cardiology for permanent atrial fibrillation (not on anticoagulation).
Deemed high risk candidate for low risk surgery.
Small 2 mm stone @left UVJ w/o fevers, leukocytosis, or PATRICA.
Given UA findings indicative of UTI (UCx pending), recommend stone extraction w/ possible stent placement.
Reviewed potential risks and complications of ureteroscopy/laser lithotripsy/stone extraction/stent placement - including but not limited to urosepsis, bleeding, ureteral/bladder injury, risk of ureteral stricture formation, need for additional
procedures/surgeries.
To OR this afternoon for left ULS
Surgical consent signed on chart
Continue IV antibiotics per Hospitalist pending UCx
D/w patient this AM.
--- NOTE | 2025-01-15 08:52 | W.PN.CD ---
Today's Communication / Plan
-
for the OR today with Dr Taylor
Impression / Plan
-
I/P: 64M with permanent atrial fibrillation (not on oral anticoagulation), HFrEF (recovered LVEF), colorectal cancer status post colectomy with colostomy and now ileostomy, hypertension, dyslipidemia, type 2 diabetes mellitus, morbid obesity, and
chronic pain syndrome who presented to the emergency department with a chief complaint of weakness.
Outpatient security expert: Dr. Garcia (lost to follow-up)
Atrial fibrillation/flutter, likely permanent
- Home medication show metoprolol tartrate 25 mg twice daily
- No plans to restore sinus rhythm
- Oral Anticoagulation: None, deemed not a candidate
- [id number]: Score at least 5 (Heart failure, HTN, Diabetes Mellitus, Vascular disease, age 65-74)
Preoperative assessment
- no acute contraindication to proceed to surgery
- Elevated risk, cannot complete 4 METS at baseline
- He is on heart failure, no symptoms of angina
Obstructing UVJ stone, OR today with Dr. Taylor
Gastroparesis with constipation
Chronic pain syndrome, requiring narcotics
Prior colorectal cancer, S/P colostomy now with ileostomy
Dyslipidemia, on atorvastatin
Chronic wound, in the setting of prior skin graft
Physical Exam
Vital Signs/Labs
Vital Signs
Temp Pulse Resp BP Pulse Ox
97.8 F 74 16 116/69 96
01/15/25 07:40 01/15/25 07:40 01/15/25 07:40 01/15/25 07:40 01/15/25 07:40
01/14/25 01/15/25 01/16/25
06:59 06:59 06:59
Actual Weight 263 lb 10.766 oz 250 lb 8 oz
01/15/25 05:11
01/15/25 05:11
Magnesium 1.7 mg/dl (1.6-2.3) 01/15/25 05:11
Physical Exam
Constitutional: No acute distress
Cardiovascular: Rhythm & rate is regular, Pedal edema is absent, JVD pressure is normal, Systolic murmur absent and Diastolic murmur absent
Respiratory: Respiratory effort normal, Lungs clear to auscul., Wheeze Absent, Crackles Absent and Rhonchi Absent
Neuro/Psych: AO x 3
Data Reviewed
-
Date of Service: January 15, 2025
Medical Decision Making: Review of Case with other Provider (Dr Calabrese looks good for surgery)
EKG: Other (tele rate control fib)
[2025-01-15] MEDS: NOVOLOG FLEXPEN-LOW RESISTANCE SC ×3 (09:22→16:48)
[2025-01-15] MEDS: CYMBALTA DELAYED RELEASE 30 MG PO (09:23)
[2025-01-15] MEDS: CYMBALTA DELAYED RELEASE 60 MG PO (09:23)
[2025-01-15] MEDS: SENOKOT-S 1 TABLET PO ×2 (09:23→20:56)
[2025-01-15] MEDS: NEURONTIN 800 MG PO ×2 (09:23→17:47)
[2025-01-15] MEDS: LOPRESSOR 25 MG PO ×2 (09:24→20:56)
[2025-01-15] MEDS: MIRALAX 17 GRAMS PO (09:25)
[2025-01-15] MEDS: ANTIFUNGAL CLEAR 1 APPLIC TOPICAL ×2 (09:39→21:42)
--- NOTE | 2025-01-15 09:52 | W.PN.HOSP.TC ---
Today's Communication/Plan
-
see A/P
Assessment / Plan
Assessment / Plan
HPI: 64-year-old gentleman with past medical history significant for colon cancer status post bowel resection, ileostomy, multiple abdominal surgeries, CHF, hypertension, hyperlipidemia, diabetes, chronic pain on oral Dilaudid and high doses of
fentanyl patches (managed by pain specialist for 20 years), who presented to the emergency department via EMS secondary to complaints of weakness, urinary frequency, dysuria, that started 2 weeks prior and continued to worsen. He has been having
chills and nausea associated with the symptoms. He denies fever, no vomiting, no diarrhea. He lives at home alone and has a regular social media manager that comes to house daily. He is mostly non-ambulatory.
A/P:
# Complicated UTI with obstructing left ureterovesical junction stone that is new; punctate nonobstructing renal stone on the right
# h/o recurrent UTIs and kidney stones
Follow CT [facility] formal report
Follow urine culture
blood cultures x2 so far negative
Continue IV Zosyn
urology on board, plan for OR left ULS 01/15
Appreciate Card input for preop clearance
# Atrial flutter/likely permanent atrial fibrillation
Cont SCHOOL [employer] COOK HEAD metoprolol 25 mg twice daily for rate control,
Pt is a poor candidate for systemic anticoagulation due to chronic mild active bleeding at his abdominal wound site/skin graft (which has been present for years).
Appreciate Card input for preop clearance
# Bowel enterocutaneous fistula anterior mid abdomen ruled out
# noted hx of chronic abdominal wound
Per surgery, pt has chronic abdominal wounds likely related to increased tension and pressure from his large abdominal hernia, possibly related to a chronic mesh infection.
No clear evidence of a ECF on exam.
No indication for surgical intervention at this time. Additionally, patient has no desire at this time for surgical intervention as a relates to these wounds.
Cont local wound care
Chronic medical conditions:
# Colorectal cancer status post colostomy and ileostomy
# CHF, stable
# HTN
# Hypercholesterolemia
# NIDDM, Sliding scale insulin Monitor blood glucose
# Duodenal ulcers
# Chronic back pain
# Ji's palsy
# ER Past Surgical History of Bowel resection (For treatment of rectal cancer, Ileostomy, Chronic sacral decub and abd open wound) and Other (Rectal surgery, umbilical hernia surgery, Colostomy hernia repair)
DVT proph- Lovenox SQ
Full Code
Anticipated Discharge: > 48 hours
Subjective/Interval History
-
Date of Service: January 15, 2025
Objective Data
-
Labs:
Laboratory Results
01/15/25
05:11
WBC 7.0
Hgb 10.2 L
Hct 31.3 L
Plt Count 310
Sodium 140
Potassium 4.3
Chloride 108 H
Carbon Dioxide 28
BUN 16
Creatinine 0.8
Glucose 98
Calcium 8.2 L
Vital Signs:
Vital Signs
Temp Pulse Resp BP Pulse Ox
36.6 C 74 16 116/69 96
01/15/25 07:40 01/15/25 09:24 01/15/25 07:40 01/15/25 09:24 01/15/25 07:40
I&O
01/14/25 01/15/25 01/16/25
06:59 06:59 06:59
Intake Total 50 / 50 810 / 810
Output Total 500 / 500 400 / 400
Balance -450 / -450 410 / 410
Review of Systems
-
History Source: Patient
Genitourinary: Reports Other (pressure with urination, improved )
Physical Exam
-
General: Well Developed, Well Nourished, No Apparent Distress, Comfortable, Conversant, Appears Chronically Ill and Obese; Negative Respiratory Distress
HEENT: Normocephalic, Atraumatic, Nose Appears Normal and Ears Appear Normal; Negative Oxygen
Respiratory: Clear to Auscultation and Non Labored Respirations; Negative Accessory Resp Muscle Use
Cardiac: Regular Rhythm and S1/S2
GI: Soft, Nontender, Nondistended and Ostomy
Skin: Other (see wound care note )
Neuro: Awake, Alert, Oriented and AO x 3
Psych: Calm and Intact Judgement/Insight
Data Reviewed
-
CT Scan: Report Reviewed by me
Labs: Labs Reviewed by me
[2025-01-15 12:22] LABS: Glucose - Point of Care 90 mg/dl (70-99)
[2025-01-15] MEDS: NSS 1000 IV (12:52)
--- NOTE | 2025-01-15 14:14 | CM ---
Reviewed the chart notes and spoke with the patient at the bedside. Patient to OR today for stone extraction w/ possible stent placement. CM continues to be available to patient/family and is monitoring medical plan for needs at discharge.
Plan: Discharge plan will depend on the patient's progress.
--- NOTE | 2025-01-15 16:34 | W.IMMPOSTOP ---
Surgical Immed Post Op Note
-
Primary Surgeon: Brandon
Pre-op Diagnosis: Obstructing left UVJ stone
Post-op Diagnosis: Same, radiation cystitis, altered bladder anatomy (from prior XRT and pelvic surgery)
Procedure Performed: cystoscopy, left URS/basket extraction of stone
Anesthesia Type: GETA
Specimen / Cultures: Stone for analysis/None
Estimated Blood Loss: Negligible
Drains: 22Fr 3-way catheter (15 cc in balloon)
Complications: None
Operative Findings: 3 mm stone noted emerging from left UO - secured easily w/ stone basket and extracted, global radiation cystitis changes of bladder w/ oozing noted during cystoscopy.
3-way catheter placed at conclusion to procedure - faintly pink-tinged UOP after hand irrigation w/o clots.
[2025-01-15 16:49] LABS: Glucose - Point of Care 96 mg/dl (70-99)
[2025-01-15] MEDS: DETROL LA 4 MG PO (17:00)
[2025-01-15] MEDS: VALIUM INJECTION 2 MG IV (17:03)
[2025-01-15] MEDS: LOVENOX 40 MG SC (17:48)
[2025-01-15 17:53] LABS: Glucose - Point of Care 95 mg/dl (70-99)
[2025-01-15 18:16] LABS: Glucose - Point of Care 103 mg/dl (70-99)
[2025-01-15 21:31] LABS: Glucose - Point of Care 184 mg/dl (70-99)
[2025-01-15] MEDS: LIPITOR 40 MG PO (21:41)
[2025-01-15] MEDS: NEURONTIN 1200 MG PO (21:41)
[2025-01-16] MEDS: ZOSYN 50 IV ×5 (00:49→23:23)
[2025-01-16] MEDS: DILAUDID 1 MG IV ×5 (01:17→21:49)
[2025-01-16 03:08] VITALS: BP 121/64
[2025-01-16] MEDS: NSS 1000 IV ×2 (04:36→10:43)
[2025-01-16 05:01] LABS: Hematocrit 32.7 % (39.0-52.0); Hemoglobin 10.3 g/dL (13.0-18.0); Mean Corp Hgb Conc. 31.5 g/dL (33.0-37.0); Mean Corpuscular Volume 90.3 fL (80.0-94.0); Platelet Count 358 10^3/uL (130-400); Red Cell Dist. Width 14.1 % (11.5-14.5)
[2025-01-16 05:26] LABS: Blood Urea Nitrogen 13 mg/dl (9-20); Calcium 8.1 mg/dl (8.4-10.2); Carbon Dioxide 23 mmol/L (22-30); Chloride 108 mmol/L (98-107); Estimated Creatinine Clearance > 125 ml/min; Glucose 144 mg/dl (70-99); Magnesium 1.6 mg/dl (1.6-2.3); Potassium 4.6 mmol/L (3.5-5.1); Sodium 138 mmol/L (135-145); eGFR > 60.00
[2025-01-16 07:00] VITALS: BP 114/74
[2025-01-16 08:18] LABS: Glucose - Point of Care 118 mg/dl (70-99)
[2025-01-16] MEDS: NOVOLOG FLEXPEN-LOW RESISTANCE SC ×3 (09:51→17:31)
--- NOTE | 2025-01-16 09:53 | W.PN.CD ---
Today's Communication / Plan
-
A-fib rate control is suboptimal will titrate metoprolol
Impression / Plan
-
I/P: 64M with permanent atrial fibrillation (not on oral anticoagulation), HFrEF (recovered LVEF), colorectal cancer status post colectomy with colostomy and now ileostomy, hypertension, dyslipidemia, type 2 diabetes mellitus, morbid obesity, and
chronic pain syndrome who presented to the emergency department with a chief complaint of weakness.
Outpatient manager commercial: Dr. Garcia (lost to follow-up)
Atrial fibrillation/flutter, likely permanent
- Home medication show metoprolol tartrate 25 mg twice daily. Currently with suboptimal rate control. Will increase metoprolol dosing
- No plans to restore sinus rhythm
- Oral Anticoagulation: None, deemed not a candidate
- [id number]: Score at least 5 (Heart failure, HTN, Diabetes Mellitus, Vascular disease, age 65-74)
Postop extraction of obstructing UVJ stone by Dr. Taylor. currently with bloody bladder irrigation
Gastroparesis with constipation
Chronic pain syndrome, requiring narcotics
Prior colorectal cancer, S/P colostomy now with ileostomy
Dyslipidemia, on atorvastatin
Chronic wound, in the setting of prior skin graft
Physical Exam
Vital Signs/Labs
Vital Signs
Temp Pulse Resp BP Pulse Ox
98.4 F 90 20 114/74 97
01/16/25 07:00 01/16/25 07:00 01/16/25 07:00 01/16/25 07:00 01/16/25 07:00
01/15/25 01/16/25 01/17/25
06:59 06:59 06:59
Actual Weight 113.625 kg
01/16/25 04:26
01/16/25 04:26
Magnesium 1.6 mg/dl (1.6-2.3) 01/16/25 04:26
Physical Exam
Constitutional: No acute distress
Cardiovascular: Rhythm/rate is irregular
Respiratory: Wheeze Absent and Crackles Absent
GI: Soft, Non tender and Normal bowel sounds
Neuro/Psych: Alert
Data Reviewed
-
Date of Service: January 16, 2025
Medical Decision Making: Reviewed Test Results
EKG: Other (Telemetry reviewed and discussed with nursing staff)
Medical Tests (PFT, Pathology etc): Report Reviewed by me
Labs: Labs Reviewed by me
[2025-01-16] MEDS: CYMBALTA DELAYED RELEASE 30 MG PO (09:57)
[2025-01-16] MEDS: NEURONTIN 800 MG PO ×2 (09:58→17:29)
[2025-01-16] MEDS: DETROL LA 4 MG PO (09:58)
[2025-01-16] MEDS: SENOKOT-S 1 TABLET PO ×2 (09:59→20:30)
[2025-01-16] MEDS: LOPRESSOR 25 MG PO ×3 (09:59→17:29)
[2025-01-16] MEDS: MIRALAX 17 GRAMS PO (10:01)
[2025-01-16] MEDS: CYMBALTA DELAYED RELEASE 60 MG PO (10:05)
[2025-01-16] MEDS: ANTIFUNGAL CLEAR 1 APPLIC TOPICAL ×2 (10:46→20:30)
[2025-01-16 11:09] VITALS: BP 131/69
--- NOTE | 2025-01-16 11:46 | PN.CDI ---
CDI
- -
CDI:
Physician Documentation Request
Admit Date: 01/14/25 02:48
Dear Doctor Bharati,
H&P states ' chronic pain on oral Dilaudid and high doses of fentanyl patches (managed by pain specialist for 20 years),'
These medications have been used during hospitalization
Please specify the pattern of use:
- Opioid dependence
- Opioid use only
- Other
Use of terms such as suspected, likely, concern for, or probable (associated with a specific diagnosis that is being evaluated, monitored, or treated as if it exists) are acceptable and can be coded in the inpatient setting, when documented at the
time of discharge.
Thank you,
Yvette Howard RN, BSN
CDI Specialist
tiger text
Please use your independent medical judgment in providing your response.
--- NOTE | 2025-01-16 11:53 | W.PN.HOSP.TC ---
Addendum entered and electronically signed by Myriam Calabrese MD 01/16/25 13:15:
# Opioid dependence
Original Note:
Today's Communication/Plan
-
see A/P
Assessment / Plan
Assessment / Plan
HPI: 64-year-old gentleman with past medical history significant for colon cancer status post bowel resection, ileostomy, multiple abdominal surgeries, CHF, hypertension, hyperlipidemia, diabetes, chronic pain on oral Dilaudid and high doses of
fentanyl patches (managed by pain specialist for 20 years), who presented to the emergency department via EMS secondary to complaints of weakness, urinary frequency, dysuria, that started 2 weeks prior and continued to worsen. He has been having
chills and nausea associated with the symptoms. He denies fever, no vomiting, no diarrhea. He lives at home alone and has a regular instructor painting that comes to house daily. He is mostly non-ambulatory.
A/P:
# Complicated UTI with obstructing left ureterovesical junction stone that is new; punctate nonobstructing renal stone on the right
# h/o recurrent UTIs and kidney stones
Follow CT [facility] formal report
urine culture growing Proteus, follow S/S
blood cultures x2 negative
Continue IV Zosyn
s/p cystoscopy, left Ureteroscopy/basket extraction of stone 01/15 by Uro
Gross hematuria post op, pt was started with CBI, cont
Stop Lovenox for DVT ppx, use SCD instead
Uro on board
# Atrial flutter/likely permanent atrial fibrillation
Cont HOUSE RN metoprolol 25 mg twice daily for rate control,
Pt is a poor candidate for systemic anticoagulation due to chronic mild active bleeding at his abdominal wound site/skin graft (which has been present for years).
Appreciate Card input for preop clearance
# Bowel enterocutaneous fistula anterior mid abdomen ruled out
# noted hx of chronic abdominal wound
Per surgery, pt has chronic abdominal wounds likely related to increased tension and pressure from his large abdominal hernia, possibly related to a chronic mesh infection.
No clear evidence of a ECF on exam.
No indication for surgical intervention at this time. Additionally, patient has no desire at this time for surgical intervention as a relates to these wounds.
Cont local wound care
Chronic medical conditions:
# Colorectal cancer status post colostomy and ileostomy
# CHF, stable
# HTN
# Hypercholesterolemia
# NIDDM, Sliding scale insulin Monitor blood glucose
# Duodenal ulcers
# Chronic back pain
# Ji's palsy
# ER Past Surgical History of Bowel resection (For treatment of rectal cancer, Ileostomy, Chronic sacral decub and abd open wound) and Other (Rectal surgery, umbilical hernia surgery, Colostomy hernia repair)
DVT proph- SCD
Full Code
total time spent 51 min
Anticipated Discharge: > 48 hours
Subjective/Interval History
-
Date of Service: January 16, 2025
Objective Data
-
Labs:
Laboratory Results
01/16/25
04:26
WBC 14.9 H
Hgb 10.3 L
Hct 32.7 L
Plt Count 358
Sodium 138
Potassium 4.6
Chloride 108 H
Carbon Dioxide 23
BUN 13
Creatinine 0.7
Glucose 144 H
Calcium 8.1 L
Vital Signs:
Vital Signs
Temp Pulse Resp BP Pulse Ox
37.0 C 120 16 131/69 97
01/16/25 11:09 01/16/25 11:09 01/16/25 11:09 01/16/25 11:09 01/16/25 11:09
I&O
01/15/25 01/16/25 01/17/25
06:59 06:59 06:59
Intake Total 810 / 810 890 / 890
Output Total 400 / 400 675 / 675 -2725 / -2725
Balance 410 / 410 215 / 215 2725 / 2725
Review of Systems
-
History Source: Patient
Genitourinary: Reports Bleeding (hematuria)
Physical Exam
-
General: Well Developed, Well Nourished, No Apparent Distress, Comfortable, Conversant, Appears Chronically Ill and Obese; Negative Respiratory Distress
HEENT: Normocephalic, Atraumatic, Nose Appears Normal and Ears Appear Normal; Negative Oxygen
Respiratory: Clear to Auscultation and Non Labored Respirations; Negative Accessory Resp Muscle Use
Cardiac: Regular Rhythm and S1/S2
GI: Soft, Nontender, Nondistended and Ostomy
Genito-urinary: Continuous Bladder Irrigation
Skin: Other (see wound care note )
Neuro: Awake, Alert, Oriented and AO x 3
Psych: Calm and Intact Judgement/Insight
Data Reviewed
-
CT Scan: Report Reviewed by me
Labs: Labs Reviewed by me
[2025-01-16 12:32] LABS: Glucose - Point of Care 107 mg/dl (70-99)
--- NOTE | 2025-01-16 13:02 | W.PN.URO.CBU ---
Today's Communication / Plan
-
Wean CBI as tolerated - plan for CBI clamp trial in AM
Voiding trial before discharge
H/H and Cr stable
Continue IV Zosyn for Proteus cUTI
Assessment / Plan
-
Proteus cUTI
Obstructing left UVJ stone
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
01/15: s/p cystoscopy + right URS/stone extraction ( at UVJ)
Diagnosis
-
Date of Service: January 16, 2025
-
Patient Diagnosis:
Proteus cUTI
Obstructing left UVJ stone
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
Post Op Day:
01/15: s/p cystoscopy + right URS/stone extraction ( at [facility])
Subjective
-
CBI flowing, urine draining w/o issues.
Notes pain at urethral meatus (from catheter placement).
Objective
-
Vital Signs
Temp Pulse Resp BP Pulse Ox
98.6 F 120 16 131/69 97
01/16/25 11:09 01/16/25 11:09 01/16/25 11:09 01/16/25 11:09 01/16/25 11:09
Intake and Output
01/15/25 01/16/25 01/17/25
06:59 06:59 06:59
Intake Total 810 / 810 890 / 890
Output Total 400 / 400 675 / 675 -2725 / -2725
Balance 410 / 410 215 / 215 2725 / 2725
Intake:
Oral fluids 600 / 600 840 / 840
IV fluids (Total) 160 / 160 50 / 50
normasol 50 / 50
IV piggybacks 50 / 50
Output:
Urine, Voided 400 / 400 325 / 325
True Urine Output from CBI 350 / 350 -2725 / -1955
Other:
Number of unmeasured liquid
stools
Colostomy 1
Laboratory Results
01/16/25 04:26
01/16/25 04:26
Physical Exam
-
General - well developed, well nourished, no acute distress
Abdomen - soft, non-tender, large right abdominal hernia, colostomy in place w/ stool
Genitalia - normal, 22Fr 3-way in place draining w/o clots
Skin - warm & dry with no rash
Neuro - AOx3, no motor deficits
Extremities - no clubbing, no cyanosis, no edema
Care Review
Data Reviewed
Discussed with: Hospitalist and Family
CT Scan: Report Pers Reviewed and Image Pers Reviewed
--- NOTE | 2025-01-16 13:25 | CM ---
Reviewed the chart notes. CBI continues. Per notes, will clamp CBI and voiding trial tomorrow morning. CM continues to be available to patient/family and is monitoring medical plan for needs at discharge.
Plan: Discharge plans will depend on the patient's progress.
[2025-01-16 15:00] VITALS: BP 123/69
[2025-01-16 17:20] LABS: Glucose - Point of Care 129 mg/dl (70-99)
[2025-01-16 19:20] VITALS: BP 113/75
[2025-01-16 21:47] LABS: Glucose - Point of Care 119 mg/dl (70-99)
[2025-01-16] MEDS: LIPITOR 40 MG PO (21:50)
[2025-01-16] MEDS: NEURONTIN 1200 MG PO (21:50)
[2025-01-16 23:37] VITALS: BP 103/67
[2025-01-17] MEDS: LOPRESSOR 25 MG PO ×2 (00:04→06:22)
[2025-01-17] MEDS: DILAUDID 1 MG IV ×7 (00:17→21:23)
[2025-01-17 04:58] LABS: Hematocrit 32.5 % (39.0-52.0); Hemoglobin 10.3 g/dL (13.0-18.0); Mean Corp Hgb Conc. 31.7 g/dL (33.0-37.0); Mean Corpuscular Volume 89.8 fL (80.0-94.0); Platelet Count 338 10^3/uL (130-400); Red Cell Dist. Width 14.3 % (11.5-14.5)
[2025-01-17 05:39] LABS: Blood Urea Nitrogen 14 mg/dl (9-20); Calcium 7.8 mg/dl (8.4-10.2); Carbon Dioxide 27 mmol/L (22-30); Chloride 107 mmol/L (98-107); Estimated Creatinine Clearance > 125 ml/min; Glucose 98 mg/dl (70-99); Magnesium 1.5 mg/dl (1.6-2.3); Potassium 4.3 mmol/L (3.5-5.1); Sodium 139 mmol/L (135-145); eGFR > 60.00
[2025-01-17 05:47] VITALS: BMI 39.5
[2025-01-17] MEDS: ZOSYN 50 IV ×4 (06:12→23:58)
[2025-01-17 07:00] VITALS: BP 151/95
[2025-01-17 08:11] LABS: Glucose - Point of Care 58 mg/dl (70-99)
[2025-01-17] MEDS: NOVOLOG FLEXPEN-LOW RESISTANCE SC ×2 (08:12→11:32)
[2025-01-17] MEDS: DETROL LA 4 MG PO (08:15)
[2025-01-17] MEDS: NEURONTIN 800 MG PO ×2 (08:15→16:22)
[2025-01-17] MEDS: CYMBALTA DELAYED RELEASE 30 MG PO (08:15)
[2025-01-17] MEDS: ANTIFUNGAL CLEAR 1 APPLIC TOPICAL ×2 (08:16→21:41)
[2025-01-17] MEDS: SENOKOT-S 1 TABLET PO ×2 (08:16→20:33)
[2025-01-17] MEDS: MIRALAX PO (08:16)
[2025-01-17] MEDS: MAGNESIUM SULFATE 50 IV (08:17)
[2025-01-17 08:32] LABS: Glucose - Point of Care 66 mg/dl (70-99)
[2025-01-17] MEDS: CYMBALTA DELAYED RELEASE 60 MG PO (08:33)
[2025-01-17] MEDS: TOPROL XL 50 MG PO (08:39)
[2025-01-17 09:22] LABS: Glucose - Point of Care 77 mg/dl (70-99)
--- NOTE | 2025-01-17 09:59 | W.PN.CD ---
Today's Communication / Plan
-
- Will place on Toprol-XL 50 mg once daily, which should be home regimen.
- Outpatient follow-up with Cardiology.
Impression / Plan
-
I/P: 64M with permanent atrial fibrillation (not on oral anticoagulation), HFrEF (recovered LVEF), colorectal cancer status post colectomy with colostomy and now ileostomy, hypertension, dyslipidemia, type 2 diabetes mellitus, morbid obesity, and
chronic pain syndrome who presented to the emergency department with a chief complaint of weakness.
Outpatient underwriter mortgage loan: Dr. Garcia (lost to follow-up)
Atrial fibrillation/flutter, likely permanent
- Heart rate controlled; no significant pauses on telemetry.
- Will place on Toprol-XL 50 mg once daily, which should be home regimen.
- No plans to restore sinus rhythm
- Oral Anticoagulation: None, deemed not a candidate
- [id number]: Score at least 5 (Heart failure, HTN, Diabetes Mellitus, Vascular disease, age 65-74)
Postop extraction of obstructing UVJ stone by Dr. Taylor.
Gastroparesis with constipation
Chronic pain syndrome, requiring narcotics
Prior colorectal cancer, S/P colostomy now with ileostomy
Dyslipidemia, on atorvastatin
Chronic wound, in the setting of prior skin graft
Physical Exam
Vital Signs/Labs
Vital Signs
Temp Pulse Resp BP Pulse Ox
97.8 F 74 16 151/95 97
01/17/25 07:00 01/17/25 07:00 01/17/25 07:00 01/17/25 07:00 01/17/25 07:00
01/16/25 01/17/25 01/18/25
06:59 06:59 06:59
Actual Weight 121.245 kg
01/17/25 04:37
01/17/25 04:37
Magnesium 1.5 mg/dl (1.6-2.3) L 01/17/25 04:37
Physical Exam
Constitutional: No acute distress and Comfortable
EENT: Anicteric
Cardiovascular: Diastolic murmur absent, Rhythm/rate is irregular, Pedal edema present (Trace) and S1S2 is normal
Respiratory: Respiratory effort normal and Lungs clear to auscul.
GI: Soft and Non tender
Neuro/Psych: AO x 3
Other: Skin (Warm, dry)
Data Reviewed
-
Date of Service: January 17, 2025
EKG: Tracing Personally Visualized and interpreted (Telemetry: A-fib)
Echo: Report Reviewed by me (05/23/2023: LVEF 71%; no significant valvular disease.)
Medical Tests (PFT, Pathology etc): Discussed with Nurse
Labs: Labs Reviewed by me
[2025-01-17 11:00] VITALS: BP 142/75
--- NOTE | 2025-01-17 11:00 | W.PN.HOSP.TC ---
Today's Communication/Plan
-
see A/P
Assessment / Plan
Assessment / Plan
HPI: 64-year-old gentleman with past medical history significant for colon cancer status post bowel resection, ileostomy, multiple abdominal surgeries, CHF, hypertension, hyperlipidemia, diabetes, chronic pain on oral Dilaudid and high doses of
fentanyl patches (managed by pain specialist for 20 years), who presented to the emergency department via EMS secondary to complaints of weakness, urinary frequency, dysuria, that started 2 weeks prior and continued to worsen. He has been having
chills and nausea associated with the symptoms. He denies fever, no vomiting, no diarrhea. He lives at home alone and has a regular cad intern that comes to house daily. He is mostly non-ambulatory.
A/P:
# Complicated UTI with obstructing left ureterovesical junction stone that is new; punctate nonobstructing renal stone on the right
# h/o recurrent UTIs and kidney stones
CT AP formal report as above
urine culture growing Proteus, sensitive to ceftriaxone/Zosyn
blood cultures x2 negative
Continue IV Zosyn
s/p cystoscopy, left Ureteroscopy/basket extraction of stone 01/15 by Uro
Gross hematuria post op, pt was started with CBI, wean CBI as tolerated, for clamp trial today 01/17
Voiding trial before discharge per Uro
Uro on board
Stopped Lovenox for DVT ppx with hematuria, use SCD instead
# Atrial flutter/likely permanent atrial fibrillation
Cont [employer] metoprolol, now 50 mg daily, for rate control,
Pt is a poor candidate for systemic anticoagulation due to chronic mild active bleeding at his abdominal wound site/skin graft (which has been present for years).
Appreciate Card input for preop clearance
# Bowel enterocutaneous fistula anterior mid abdomen ruled out
# noted hx of chronic abdominal wound
Per surgery, pt has chronic abdominal wounds likely related to increased tension and pressure from his large abdominal hernia, possibly related to a chronic mesh infection.
No clear evidence of a ECF on exam.
No indication for surgical intervention at this time. Additionally, patient has no desire at this time for surgical intervention as a relates to these wounds.
Cont local wound care
Chronic medical conditions:
# Colorectal cancer status post colostomy and ileostomy
# CHF, stable
# HTN
# Hypercholesterolemia
# NIDDM, Sliding scale insulin Monitor blood glucose
# Duodenal ulcers
# Chronic back pain
# Ji's palsy
# ER Past Surgical History of Bowel resection (For treatment of rectal cancer, Ileostomy, Chronic sacral decub and abd open wound) and Other (Rectal surgery, umbilical hernia surgery, Colostomy hernia repair)
DVT proph- SCD
Full Code
Anticipated Discharge: > 48 hours
Subjective/Interval History
-
Date of Service: January 17, 2025
Objective Data
-
Labs:
Laboratory Results
01/17/25
04:37
WBC 9.7
Hgb 10.3 L
Hct 32.5 L
Plt Count 338
Sodium 139
Potassium 4.3
Chloride 107
Carbon Dioxide 27
BUN 14
Creatinine 0.7
Glucose 98
Calcium 7.8 L
Vital Signs:
Vital Signs
Temp Pulse Resp BP Pulse Ox
36.6 C 74 16 151/95 97
01/17/25 07:00 01/17/25 07:00 01/17/25 07:00 01/17/25 07:00 01/17/25 07:00
I&O
01/16/25 01/17/25 01/18/25
06:59 06:59 06:59
Intake Total 890 / 890 1380 / 1380
Output Total 675 / 675 -1974 / -1974 2449 / 2450
Balance 215 / 215 3355 / 3355 -2449 /
Review of Systems
-
History Source: Patient
Genitourinary: Reports Bleeding (hematuria resolving )
Physical Exam
-
General: Well Developed, Well Nourished, No Apparent Distress, Comfortable, Conversant, Appears Chronically Ill and Obese; Negative Respiratory Distress
HEENT: Normocephalic, Atraumatic, Nose Appears Normal and Ears Appear Normal; Negative Oxygen
Respiratory: Clear to Auscultation and Non Labored Respirations; Negative Accessory Resp Muscle Use
Cardiac: Regular Rhythm and S1/S2
GI: Soft, Nontender, Nondistended and Ostomy
Genito-urinary: Continuous Bladder Irrigation (clamped )
Skin: Other (see wound care note )
Neuro: Awake, Alert, Oriented and AO x 3
Psych: Calm and Intact Judgement/Insight
Data Reviewed
-
CT Scan: Report Reviewed by me
Labs: Labs Reviewed by me
--- NOTE | 2025-01-17 11:22 | CM ---
Addendum entered by Albertina Farrell RN 01/17/25 16:04:
IMM on chart.
Addendum entered by Albertina Farrell RN 01/17/25 11:38:
[facility] Office
Original Note:
Reviewed the chart notes and spoke with the patient at the bedside. Discussed VN needs at discharge. Patient interested in resuming with [facility] who he recently had. CM continues to be available to patient/family and is monitoring medical plan
for needs at discharge.
Plan: Discharge to home with [facility] and [facility], Monday through Monday from 9-430, Monday 9-330 and Monday 12-630.
[2025-01-17 11:28] LABS: Glucose - Point of Care 112 mg/dl (70-99)
[2025-01-17 13:34] LABS: Glucose - Point of Care 89 mg/dl (70-99)
[2025-01-17 14:05] VITALS: BP 143/77; PULSE 60; O2SAT 98
--- NOTE | 2025-01-17 14:51 | W.PN.URO.CBU ---
Today's Communication / Plan
-
CBI clamp trial today
Continue IV Unasyn - treatment course for cUTI
Urology will re-assess urine in AM - if remains clear => inpatient voiding trial
Assessment / Plan
-
Proteus cUTI
Obstructing left UVJ stone
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
01/15: s/p cystoscopy + right URS/stone extraction ( at [facility])
Diagnosis
-
Date of Service: January 17, 2025
-
Patient Diagnosis:
Proteus cUTI
Obstructing left UVJ stone
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
Post Op Day:
01/15: s/p cystoscopy + right URS/stone extraction ( at [facility])
Subjective
-
Gonzalez catheter draining well - clear w/o clots, old bloody sediment.
Objective
-
Vital Signs
Temp Pulse Resp BP Pulse Ox
98.2 F 79 20 142/75 97
01/17/25 11:00 01/17/25 11:00 01/17/25 11:00 01/17/25 11:00 01/17/25 11:17
Intake and Output
01/16/25 01/17/25 01/18/25
06:59 06:59 06:59
Intake Total 890 / 890 1380 / 1380 480 / 480
Output Total 675 / 675 -1974 / 2450 / 2450
Balance 215 / 215 3355 / 3355 -1969 /
Intake:
Oral fluids 840 / 840 1380 / 1380
IV fluids (Total) 50 / 50 480 / 480
normasol 50 / 50
Output:
Urine, Voided 325 / 325
True Urine Output from CBI 350 / 350 -1974 / 2450 / 2450
Other:
Number of unmeasured liquid
stools
Colostomy 1 1
Laboratory Results
01/17/25 04:37
01/17/25 04:37
Physical Exam
-
General - well developed, well nourished, no acute distress
Abdomen - soft, non-tender, distended, large right-sided abdominal hernia, colostomy in place
Genitalia - normal, 22Fr 3-way catheter w/ clear yellow output and minor bloody sediment in tubing, no clots
Skin - warm & dry with no rash
Extremities - no clubbing, no cyanosis, no edema
Care Review
Data Reviewed
Discussed with: Hospitalist and Nursing
CT Scan: Report Pers Reviewed and Image Pers Reviewed
Total Time Spent with Patient (in minutes): 35
[2025-01-17 15:00] VITALS: BP 120/74
[2025-01-17] MEDS: LOPRESSOR 5 MG IV ×2 (16:22→21:20)
[2025-01-17 17:08] LABS: Glucose - Point of Care 174 mg/dl (70-99)
[2025-01-17] MEDS: REMOVE DURAGESIC PATCH 1 PATCH REMOVE ×2 (17:29→17:30)
[2025-01-17] MEDS: NOVOLOG FLEXPEN-LOW RESISTANCE 1 UNITS SC (17:31)
[2025-01-17 19:21] VITALS: BP 125/76
[2025-01-17] MEDS: LIPITOR 40 MG PO (20:34)
[2025-01-17] MEDS: NEURONTIN 1200 MG PO (20:34)
[2025-01-17 21:40] LABS: Glucose - Point of Care 104 mg/dl (70-99)
[2025-01-17 23:15] VITALS: BP 115/60
[2025-01-18] MEDS: DILAUDID 1 MG IV ×8 (00:08→23:39)
[2025-01-18 02:54] LABS: Glucose - Point of Care 89 mg/dl (70-99)
[2025-01-18 03:25] VITALS: BP 109/64
[2025-01-18] MEDS: ZOSYN 50 IV ×4 (05:22→23:40)
[2025-01-18 06:00] VITALS: BMI 38.9
[2025-01-18 06:14] LABS: Hematocrit 32.4 % (39.0-52.0); Hemoglobin 10.3 g/dL (13.0-18.0); Mean Corp Hgb Conc. 31.8 g/dL (33.0-37.0); Mean Corpuscular Volume 89.3 fL (80.0-94.0); Platelet Count 332 10^3/uL (130-400); Red Cell Dist. Width 14.5 % (11.5-14.5)
[2025-01-18 06:34] LABS: Blood Urea Nitrogen 11 mg/dl (9-20); Calcium 8.1 mg/dl (8.4-10.2); Carbon Dioxide 28 mmol/L (22-30); Chloride 104 mmol/L (98-107); Estimated Creatinine Clearance > 125 ml/min; Glucose 98 mg/dl (70-99); Potassium 4.4 mmol/L (3.5-5.1); Sodium 136 mmol/L (135-145); eGFR > 60.00
[2025-01-18 07:41] LABS: Glucose - Point of Care 95 mg/dl (70-99)
[2025-01-18 07:45] VITALS: BP 122/73
[2025-01-18] MEDS: NOVOLOG FLEXPEN-LOW RESISTANCE SC ×3 (08:01→16:57)
[2025-01-18] MEDS: ANTIFUNGAL CLEAR 1 APPLIC TOPICAL ×2 (08:01→19:45)
[2025-01-18] MEDS: CYMBALTA DELAYED RELEASE 30 MG PO (08:02)
[2025-01-18] MEDS: SENOKOT-S 1 TABLET PO ×2 (08:02→19:45)
[2025-01-18] MEDS: TOPROL XL 50 MG PO (08:02)
[2025-01-18] MEDS: DETROL LA 4 MG PO (08:02)
[2025-01-18] MEDS: NEURONTIN 800 MG PO ×2 (08:02→17:20)
[2025-01-18] MEDS: CYMBALTA DELAYED RELEASE 60 MG PO (08:02)
[2025-01-18] MEDS: MIRALAX PO (08:02)
--- NOTE | 2025-01-18 10:28 | W.PN.URO.CBU ---
Today's Communication / Plan
-
Hernandez removed for trial of void
Stable for discharge from uro standpoint when voiding without difficulty
Outpatient follow up
Assessment / Plan
-
Proteus cUTI
Obstructing left UVJ stone
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
01/15: s/p cystoscopy + right URS/ distal ureteral stone extraction
- Hematuria resolved
- Hernandez removed for trial of void today
- Bladder scan if having trouble voiding
Diagnosis
-
Date of Service: January 18, 2025
-
Patient Diagnosis:
Post Op Day:
Patient Diagnosis:
Proteus cUTI
Obstructing left UVJ stone
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
Post Op Day:
01/15: s/p cystoscopy + right URS/stone extraction ( at [facility])
Subjective
-
No events
Hernandez removed this AM
No void yet
Objective
-
Vital Signs
Temp Pulse Resp BP Pulse Ox
98.7 F 153 16 122/73 95
01/18/25 07:45 01/18/25 08:02 01/18/25 07:45 01/18/25 07:45 01/18/25 07:45
Intake and Output
01/17/25 01/18/25 01/19/25
06:59 06:59 06:59
Intake Total 1380 / 1380 2100 / 2099
Output Total -1974 / -1974 4450 / 4450
Balance 3355 / 3355 -2350 / -2350
Intake:
Oral fluids 1380 / 1380 1620 / 1620
IV fluids (Total) 480 / 480
Output:
Urine, Hernandez 1999
True Urine Output from CBI -1974 2450 / 2450
Other:
Number of unmeasured liquid
stools
Colostomy 1
Laboratory Results
01/18/25 05:58
01/18/25 05:58
Physical Exam
-
General - well developed, well nourished, no acute distress
Chest - clear
Abdomen - soft, non-tender
- hernandez removed
[2025-01-18 11:17] VITALS: BP 110/65
[2025-01-18 12:21] LABS: Glucose - Point of Care 103 mg/dl (70-99)
--- NOTE | 2025-01-18 13:36 | W.PN.HOSP.TC ---
Today's Communication/Plan
-
continue current care
Assessment / Plan
Assessment / Plan
HPI: 64-year-old gentleman with past medical history significant for:
colon cancer status post bowel resection,
ileostomy,
multiple abdominal surgeries,
CHF,
hypertension,
hyperlipidemia,
diabetes,
chronic pain on oral Dilaudid and high doses of fentanyl patches (managed by pain specialist for 20 years),
who presented to the emergency department via EMS secondary to complaints of weakness, urinary frequency, dysuria, that started 2 weeks prior and continued to worsen. He had been having chills and nausea associated with the symptoms. He denied
fever, no vomiting, no diarrhea. He lives at home alone and has a regular student ambassador that comes to house daily. He is mostly non-ambulatory.
A/P:
1. Complicated UTI with obstructing left ureterovesical junction stone that is new; punctate nonobstructing renal stone on the right
Complicated h/o recurrent UTIs and kidney stones
CT AP:
3 mm obstructing left ureterovesical junction calculus.
2 mm right nephrolith. No evidence for right ureteral calculus.
Soft tissue density in the presacral region and left lateral to the sacrum, stable, and likely scarring.
Colostomy is present.
Large hernia with protrusion of hernia sac toward the right with diffuse abdominal wall weakness.
There is loss of subcutaneous fat overlying the anterior margin of the hernia sac.
Some irregular soft tissue density along the right anterior margin of the hernia sac as described, and some concern is raised for enterocutaneous fistula.
Latest Urology recommendation:
Gonzalez removed for trial of void
Stable for discharge from uro standpoint when voiding without difficulty
Outpatient follow up
2. urine culture growing Proteus, sensitive to ceftriaxone/Zosyn
blood cultures x2 negative
Continue IV Zosyn
s/p cystoscopy, left Ureteroscopy/basket extraction of stone 01/15 by Uro
If stable, switch to po abx in 2 days
3. Gross hematuria post op, pt was started with CBI, wean CBI as tolerated, had clamp trial
Voiding trial before discharge per Uro
Uro on board
Stopped Lovenox for DVT ppx with hematuria, use SCD instead
4. Atrial flutter/likely permanent atrial fibrillation
Cont [employer] metoprolol, now 50 mg daily, for rate control,
Pt is a poor candidate for systemic anticoagulation due to chronic mild active bleeding at his abdominal wound site/skin graft (which has been present for years).
Appreciate Card input for preop clearance
5. Bowel enterocutaneous fistula anterior mid abdomen ruled out
Complicated by noted hx of chronic abdominal wound
Per surgery, pt has chronic abdominal wounds likely related to increased tension and pressure from his large abdominal hernia, possibly related to a chronic mesh infection.
No clear evidence of a ECF on exam.
No indication for surgical intervention at this time. Additionally, patient has no desire at this time for surgical intervention as a relates to these wounds.
Cont local wound care
6. Chronic medical conditions:
# Colorectal cancer status post colostomy and ileostomy
# CHF, stable
# HTN
# Hypercholesterolemia
# NIDDM, Sliding scale insulin Monitor blood glucose
# Duodenal ulcers
# Chronic back pain
# Ji's palsy
# ER Past Surgical History of Bowel resection (For treatment of rectal cancer, Ileostomy, Chronic sacral decub and abd open wound) and Other (Rectal surgery, umbilical hernia surgery, Colostomy hernia repair)
DVT proph- SCD
Full Code
Dispo - consider d/c on 2 days with transition to po abx.
Anticipated Discharge: > 48 hours
Subjective/Interval History
-
Date of Service: January 18, 2025
Feels well. No new complaints.
Objective Data
-
Labs:
Laboratory Results
01/18/25
05:58
WBC 10.7
Hgb 10.3 L
Hct 32.4 L
Plt Count 332
Sodium 136
Potassium 4.4
Chloride 104
Carbon Dioxide 28
BUN 11
Creatinine 0.7
Glucose 98
Calcium 8.1 L
Vital Signs:
Vital Signs
Temp Pulse Resp BP Pulse Ox
98.0 F 97 16 110/65 95
01/18/25 11:17 01/18/25 11:17 01/18/25 11:17 01/18/25 11:17 01/18/25 11:17
I&O
01/17/25 01/18/25 01/19/25
06:59 06:59 06:59
Intake Total 1380 / 1380 2099 / 2099
Output Total -1974 / -1974 4450 / 4450
Balance 3355 / 3355 -2350 / -2350
Review of Systems
-
History Source: Patient
All other systems: Reviewed and negative
Physical Exam
-
General: Well Developed, Well Nourished, No Apparent Distress, Comfortable and Obese
HEENT: Normocephalic, Moist Mucous Membranes, Nose Appears Normal and Ears Appear Normal; Negative Good Dentition
Respiratory: Clear to Auscultation
Cardiac: Regular Rhythm and S1/S2
GI: Soft, Nontender and Nondistended
Musculoskeletal: No Clubbing, No Cyanosis and No Edema
Skin: Warm and Dry
Neuro: Awake, Alert, Oriented and AO x 3
Psych: Calm
Data Reviewed
-
Labs: Labs Reviewed by me
[2025-01-18 15:35] VITALS: BP 118/63
[2025-01-18 16:52] LABS: Glucose - Point of Care 127 mg/dl (70-99)
[2025-01-18] MEDS: LOPRESSOR 5 MG IV (17:22)
[2025-01-18] MEDS: TYLENOL 650 MG PO (18:27)
[2025-01-18 19:25] VITALS: BP 129/69
[2025-01-18] MEDS: LIPITOR 40 MG PO (21:22)
[2025-01-18] MEDS: NEURONTIN 1200 MG PO (21:22)
[2025-01-18 21:27] LABS: Glucose - Point of Care 100 mg/dl (70-99)
[2025-01-18 23:09] VITALS: BP 111/64
[2025-01-19] VITALS (7 sets, daily range): BP systolic 103–124; BP diastolic 57–77; BMI 38.3
[2025-01-19] MEDS: NSS 500 IV (00:40)
[2025-01-19 03:00] LABS: Glucose - Point of Care 102 mg/dl (70-99)
[2025-01-19] MEDS: DILAUDID 1 MG IV ×6 (04:39→20:11)
[2025-01-19] MEDS: ZOSYN 50 IV ×4 (05:41→23:31)
[2025-01-19 06:02] LABS: Glucose - Point of Care 112 mg/dl (70-99)
[2025-01-19 06:18] LABS: Hematocrit 31.3 % (39.0-52.0); Hemoglobin 10.0 g/dL (13.0-18.0); Mean Corp Hgb Conc. 31.9 g/dL (33.0-37.0); Mean Corpuscular Volume 88.7 fL (80.0-94.0); Platelet Count 344 10^3/uL (130-400); Red Cell Dist. Width 14.4 % (11.5-14.5)
[2025-01-19 06:38] LABS: ALT (SGPT) 18 U/L (0-50); AST (SGOT) 22 U/L (17-59); Albumin 3.1 g/dl (3.5-5.0); Alkaline Phosphatase 85 U/L (38-126); Blood Urea Nitrogen 12 mg/dl (9-20); Calcium 8.4 mg/dl (8.4-10.2); Carbon Dioxide 29 mmol/L (22-30); Chloride 103 mmol/L (98-107); Estimated Creatinine Clearance > 125 ml/min; Glucose 114 mg/dl (70-99); Potassium 4.3 mmol/L (3.5-5.1); Sodium 136 mmol/L (135-145); Total Protein 5.8 g/dl (6.3-8.2); eGFR > 60.00
[2025-01-19 07:13] LABS: Glucose - Point of Care 111 mg/dl (70-99)
[2025-01-19] MEDS: NOVOLOG FLEXPEN-LOW RESISTANCE SC ×3 (07:45→16:44)
[2025-01-19] MEDS: CYMBALTA DELAYED RELEASE 60 MG PO (07:49)
[2025-01-19] MEDS: NEURONTIN 800 MG PO ×2 (07:49→16:40)
[2025-01-19] MEDS: SENOKOT-S 1 TABLET PO ×2 (07:49→20:11)
[2025-01-19] MEDS: TOPROL XL 50 MG PO (07:49)
[2025-01-19] MEDS: DETROL LA 4 MG PO (07:49)
[2025-01-19] MEDS: CYMBALTA DELAYED RELEASE 30 MG PO (07:49)
[2025-01-19] MEDS: MIRALAX PO (07:50)
[2025-01-19] MEDS: ANTIFUNGAL CLEAR 1 APPLIC TOPICAL ×2 (07:50→20:10)
--- NOTE | 2025-01-19 08:43 | W.PN.URO.CBU ---
Today's Communication / Plan
-
- Hematuria resolved
- Voiding without difficulty
Urology will sign off - please call with any questions
Assessment / Plan
-
Proteus cUTI
Obstructing left UVJ stone
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
01/15: s/p cystoscopy + right URS/ distal ureteral stone extraction
- Hematuria resolved
- Voiding without difficulty
Urology will sign off - please call with any questions
Diagnosis
-
Date of Service: January 19, 2025
-
Patient Diagnosis:
Post Op Day:
Patient Diagnosis:
Proteus cUTI
Obstructing left UVJ stone
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
Post Op Day:
01/15: s/p cystoscopy + right URS/stone extraction ( at [facility])
Subjective
-
voiding without difficulty
no hematuria
Objective
-
Vital Signs
Temp Pulse Resp BP Pulse Ox
98.7 F 50 16 111/57 94
01/19/25 07:12 01/19/25 07:12 01/19/25 07:12 01/19/25 07:49 01/19/25 07:12
Intake and Output
01/18/25 01/19/25 01/20/25
06:59 06:59 06:59
Intake Total 2560 / 2560 960 / 960
Output Total 6150 / 6150 970 / 970
Balance -3590 / -3590 -10 / -10
Intake:
Oral fluids 1860 / 1860 960 / 960
IV fluids (Total) 600 / 600
IV piggybacks 100 / 100
Output:
Urine, Gonzalez 1999 / 1999
Urine, Voided 1700 / 1700 970 / 970
True Urine Output from CBI 2450 / 2450
Other:
Number of approximated MODERATE 1
amounts of urine
How many times incontinent 1
SMALL amount urine
How many times incontinent 1
MODERATE amount urine
Laboratory Results
01/19/25 05:53
01/19/25 05:53
Physical Exam
-
General - well developed, well nourished, no acute distress
Chest - clear bilaterally
Abdomen - soft, non-tender
[2025-01-19 12:22] LABS: Glucose - Point of Care 106 mg/dl (70-99)
--- NOTE | 2025-01-19 12:22 | W.PN.HOSP.TC ---
Today's Communication/Plan
-
Plan is for switch to po abx tomorrow and d/c on 01/21 if he remains stable.
Assessment / Plan
Assessment / Plan
HPI: 64-year-old gentleman with past medical history significant for:
colon cancer status post bowel resection,
ileostomy,
multiple abdominal surgeries,
CHF,
hypertension,
hyperlipidemia,
diabetes,
chronic pain on oral Dilaudid and high doses of fentanyl patches (managed by pain specialist for 20 years),
who presented to the emergency department via EMS secondary to complaints of weakness, urinary frequency, dysuria, that started 2 weeks prior and continued to worsen. He had been having chills and nausea associated with the symptoms. He denied
fever, no vomiting, no diarrhea. He lives at home alone and has a regular meteorology instructor that comes to house daily. He is mostly non-ambulatory.
A/P:
1. Complicated UTI with obstructing left ureterovesical junction stone that is new; punctate nonobstructing renal stone on the right
Complicated h/o recurrent UTIs and kidney stones
CT AP:
3 mm obstructing left ureterovesical junction calculus.
2 mm right nephrolith. No evidence for right ureteral calculus.
Soft tissue density in the presacral region and left lateral to the sacrum, stable, and likely scarring.
Colostomy is present.
Large hernia with protrusion of hernia sac toward the right with diffuse abdominal wall weakness.
There is loss of subcutaneous fat overlying the anterior margin of the hernia sac.
Some irregular soft tissue density along the right anterior margin of the hernia sac as described, and some concern is raised for enterocutaneous fistula.
Latest Urology recommendation:
- Hematuria resolved
- Voiding without difficulty
Urology will sign off - please call with any questions
Plan is to switch to po abx tomorrow, then if stable, home on 01/21/25
2. urine culture growing Proteus, sensitive to ceftriaxone/Zosyn
blood cultures x2 negative
Continue IV Zosyn
s/p cystoscopy, left Ureteroscopy/basket extraction of stone 01/15 by Uro
If stable, switch to po abx on 01/20
Augmentin causes severe vomiting and diarrhea
Proteus sensitive to Bactrim
Will try bactrim
3. Gross hematuria post op, pt was started with CBI, wean CBI as tolerated, had clamp trial
Voiding trial before discharge per Uro
Uro on board
Stopped Lovenox for DVT ppx with hematuria, use SCD instead
4. Atrial flutter/likely permanent atrial fibrillation
Cont [employer] metoprolol, now 50 mg daily, for rate control,
Pt is a poor candidate for systemic anticoagulation due to chronic mild active bleeding at his abdominal wound site/skin graft (which has been present for years).
Appreciate Card input for preop clearance
5. Bowel enterocutaneous fistula anterior mid abdomen ruled out
Complicated by noted hx of chronic abdominal wound
Per surgery, pt has chronic abdominal wounds likely related to increased tension and pressure from his large abdominal hernia, possibly related to a chronic mesh infection.
No clear evidence of a ECF on exam.
No indication for surgical intervention at this time. Additionally, patient has no desire at this time for surgical intervention as a relates to these wounds.
Cont local wound care
6. Chronic medical conditions:
# Colorectal cancer status post colostomy and ileostomy
# CHF, stable
# HTN
# Hypercholesterolemia
# NIDDM, Sliding scale insulin Monitor blood glucose
# Duodenal ulcers
# Chronic back pain
# Ji's palsy
# ER Past Surgical History of Bowel resection (For treatment of rectal cancer, Ileostomy, Chronic sacral decub and abd open wound) and Other (Rectal surgery, umbilical hernia surgery, Colostomy hernia repair)
DVT proph- SCD
Full Code
Dispo - consider d/c on 01/21/25 after transition to po abx.
Anticipated Discharge: 24 - 48 hours
Subjective/Interval History
-
Date of Service: January 19, 2025
Back and leg pain today
Objective Data
-
Labs:
Laboratory Results
01/19/25
05:53
WBC 9.5
Hgb 10.0 L
Hct 31.3 L
Plt Count 344
Sodium 136
Potassium 4.3
Chloride 103
Carbon Dioxide 29
BUN 12
Creatinine 0.7
Glucose 114 H
Calcium 8.4
Total Bilirubin 0.4
AST 22
ALT 18
Alkaline Phosphatase 85
Vital Signs:
Vital Signs
Temp Pulse Resp BP Pulse Ox
98.6 F 58 16 122/64 92
01/19/25 11:20 01/19/25 11:20 01/19/25 11:20 01/19/25 11:20 01/19/25 11:20
I&O
01/18/25 01/19/25 01/20/25
06:59 06:59 06:59
Intake Total 2560 / 2560 960 / 960
Output Total 6150 / 6150 970 / 970
Balance -3590 / -3590 -10 / -10
Review of Systems
-
History Source: Patient
All other systems: Reviewed and negative
Musculoskeletal: Reports Muscle Pain
Physical Exam
-
General: Well Developed, Well Nourished, No Apparent Distress, Comfortable and Obese
HEENT: Moist Mucous Membranes, Nose Appears Normal and Ears Appear Normal
Respiratory: Clear to Auscultation
Cardiac: Regular Rhythm and S1/S2
GI: Soft
Musculoskeletal: No Clubbing and No Cyanosis
Skin: Warm and Dry
Neuro: Awake, Alert, Oriented and AO x 3
Psych: Calm
Data Reviewed
-
Labs: Labs Reviewed by me
[2025-01-19] MEDS: LOPRESSOR 5 MG IV (12:54)
--- NOTE | 2025-01-19 14:33 | PTCARENOTE ---
prn lopressor IV given for HR sustaining between 125-136 this afternoon. pt was oob to the chair working with PT. was in the chair for 10 minutes and HR became tachycardic. asymptomatic. prn given. pt was oob to chair for about 2.5 hours. x1 assist
back to bed.
[2025-01-19 16:45] LABS: Glucose - Point of Care 142 mg/dl (70-99)
[2025-01-19 21:01] LABS: Glucose - Point of Care 118 mg/dl (70-99)
[2025-01-19] MEDS: NEURONTIN 1200 MG PO (21:12)
[2025-01-19] MEDS: LIPITOR 40 MG PO (21:12)
[2025-01-20] MEDS: NSS 500 IV (00:30)
[2025-01-20 03:21] VITALS: BP 159/89
[2025-01-20] MEDS: DILAUDID 1 MG IV ×2 (04:22→07:49)
[2025-01-20 04:34] LABS: Glucose - Point of Care 120 mg/dl (70-99)
[2025-01-20] MEDS: ZOSYN 50 IV (05:25)
[2025-01-20 05:29] LABS: Hematocrit 32.6 % (39.0-52.0); Hemoglobin 10.4 g/dL (13.0-18.0); Mean Corp Hgb Conc. 31.9 g/dL (33.0-37.0); Mean Corpuscular Volume 88.3 fL (80.0-94.0); Platelet Count 338 10^3/uL (130-400); Red Cell Dist. Width 14.4 % (11.5-14.5)
[2025-01-20 05:53] LABS: Blood Urea Nitrogen 11 mg/dl (9-20); Calcium 8.8 mg/dl (8.4-10.2); Carbon Dioxide 30 mmol/L (22-30); Chloride 104 mmol/L (98-107); Estimated Creatinine Clearance > 125 ml/min; Glucose 120 mg/dl (70-99); Potassium 4.1 mmol/L (3.5-5.1); Sodium 137 mmol/L (135-145); eGFR > 60.00
[2025-01-20 06:00] VITALS: BMI 38.5
[2025-01-20 07:29] LABS: Glucose - Point of Care 92 mg/dl (70-99)
[2025-01-20 07:30] VITALS: BP 123/82
[2025-01-20] MEDS: MIRALAX PO (07:45)
[2025-01-20] MEDS: CYMBALTA DELAYED RELEASE 30 MG PO (07:47)
[2025-01-20] MEDS: DETROL LA 4 MG PO (07:47)
[2025-01-20] MEDS: SENOKOT-S 1 TABLET PO ×2 (07:48→20:58)
[2025-01-20] MEDS: TOPROL XL 50 MG PO (07:48)
[2025-01-20] MEDS: CYMBALTA DELAYED RELEASE 60 MG PO (07:48)
[2025-01-20] MEDS: BACTRIM DS 800 MG/160 MG 1 TABLET PO (07:48)
[2025-01-20] MEDS: NEURONTIN 800 MG PO ×2 (08:01→18:04)
[2025-01-20] MEDS: ANTIFUNGAL CLEAR 1 APPLIC TOPICAL ×2 (08:02→20:59)
[2025-01-20] MEDS: NOVOLOG FLEXPEN-LOW RESISTANCE SC ×3 (08:04→17:59)
[2025-01-20 12:18] LABS: Glucose - Point of Care 94 mg/dl (70-99)
--- NOTE | 2025-01-20 14:10 | W.PN.HOSP.TC ---
Addendum entered and electronically signed by Kristen Martinez MD 01/20/25 18:27:
I saw and evaluated the patient independently. I reviewed the resident�s note and agree with findings and plan as documented by Dr. Herrera.
GENERAL: well developed, well nourished, male in no apparent distress
HEENT: NC/AT
HEART: regular rate and rhythm, +S1, +S2
LUNGS : clear to auscultation bilaterally
ABDOM: soft, nontender, nondistended, + bowel sounds--ostomy
EXT: no cyanosis, clubbing--pedal edema
NEUROLOGIC: grossly intact
Complicated Proteus UTI with obstructing left ureterovesical junction stone--s/p cystoscopy, left Ureteroscopy/basket extraction of stone 01/15 by Urology--blood cultures neg--finished IV ABX and transitioned to oral keflex--
Gross hematuria post op--pt s/p CBI--Voiding trial successful
Atrial flutter/afib-- permanent--apprec cards--poor candidate for systemic anticoagulation due to chronic mild active bleeding at his abdominal wound site/skin graft (which has been present for years)--rate control
Bowel enterocutaneous fistula anterior mid abdomen--Complicated by noted hx of chronic abdominal wound--apprec surgery--no intervention at this time
Colorectal cancer status post colostomy and ileostomy
chronic diastolic CHF--no exacerbation--cont meds as able
essential HTN--cont meds as able
HLD--cont statin
NIDDM--Sliding scale insulin
Chronic back pain--continue with pain medications--follows with pain doctor
DVT proph
CODE STATUS--Full Code
anticipate d/c home tomorrow
Addendum entered and electronically signed by Roni Herrera MD, Resident 01/20/25 14:54:
Patient is in need of semi-electric hospital bed due to the need for frequent positioning and need for bed to be elevated at 30 degrees to prevent aspiration.
Original Note:
Today's Communication/Plan
-
IV antibiotics changed to p.o.
Plan for discharge tomorrow
Assessment / Plan
Assessment / Plan
64-year-old gentleman with past medical history significant for with permanent atrial fibrillation (not on oral anticoagulation), HFrEF (recovered LVEF), colorectal cancer status post colectomy with colostomy and now ileostomy, hypertension,
dyslipidemia, type 2 diabetes mellitus, morbid obesity, and chronic pain syndrome who presented to the ER for complaints of weakness, urinary frequency, dysuria, that started 2 weeks prior and continued to worsen. He had been having chills and
nausea associated with the symptoms. He denied fever, no vomiting, no diarrhea. He lives at home alone and has a regular woodwind instrument repairer that comes to house daily. He is mostly non-ambulatory.
# Complicated UTI with obstructing left ureterovesical junction stone
# nephrolithiasis
blood cultures x2 negative
that is new; punctate nonobstructing renal stone on the right
Complicated h/o recurrent UTIs and kidney stones
CT AP:
3 mm obstructing left ureterovesical junction calculus.
2 mm right nephrolith. No evidence for right ureteral calculus.
Urology will sign off - please call with any questions
s/p cystoscopy, left Ureteroscopy/basket extraction of stone 01/15 by Uro
to follow up outpatient
PO abx Keflex 500 mg twice daily
if stable, home on 01/21/25
#Gross hematuria post op,
pt was started with CBI, wean CBI as tolerated
Voiding trial succesful
Stopped Lovenox for DVT ppx with hematuria, use SCD instead
#Atrial flutter
#afib, permanent
has hx of atrial fibrillation
Cards consulted
Cont [employer] metoprolol, now 50 mg daily, for rate control,
Pt is a poor candidate for systemic anticoagulation due to chronic mild active bleeding at his abdominal wound site/skin graft (which has been present for years).
#Bowel enterocutaneous fistula anterior mid abdomen
Complicated by noted hx of chronic abdominal wound
Per surgery, pt has chronic abdominal wounds likely related to increased tension and pressure from his large abdominal hernia, possibly related to a chronic mesh infection.
No clear evidence of a ECF on exam.
No indication for surgical intervention at this time. Additionally, patient has no desire at this time for surgical intervention as a relates to these wounds.
Cont local wound care
# Colorectal cancer status post colostomy and ileostomy
continue to monitor
# CHF,
stable, preserved EF
continue medications
# HTN
cont home meds
# Hypercholesterolemia
cont statin
# NIDDM,
Sliding scale insulin
Monitor blood glucose
# Chronic back pain
continue with pain medications
DVT proph
SCD
CODE STATUS
Full Code
Anticipated Discharge: Within 24 hours
Subjective/Interval History
-
Patient was seen at bedside today. He reports feeling a lot better although still has pain, which is from his chronic pain due to cancer treatment. Patient will follow-up with urology outpatient. No other complaints. Date of Service: January 20
2024
Objective Data
-
Labs:
Laboratory Results
01/20/25
05:22
WBC 8.3
Hgb 10.4 L
Hct 32.6 L
Plt Count 338
Sodium 137
Potassium 4.1
Chloride 104
Carbon Dioxide 30
BUN 11
Creatinine 0.6 L
Glucose 120 H
Calcium 8.8
Vital Signs:
Vital Signs
Temp Pulse Resp BP Pulse Ox
97.6 F 77 16 123/82 97
01/20/25 07:30 01/20/25 07:48 01/20/25 07:30 01/20/25 07:48 01/20/25 08:11
I&O
01/19/25 01/20/25 01/21/25
06:59 06:59 06:59
Intake Total 1200 / 1200 1060 / 1060
Output Total 2465 / 2465 1120 / 1120
Balance -1265 / -1265 -60 / -60
Review of Systems
-
History Source: Patient
Constitutional: Reports No Symptoms; Denies Fever or Fatigue
EENT: Reports No Symptoms Reported; Denies Sore Throat or Runny Nose
Respiratory: Reports No Symptoms; Denies Cough or Trouble Breathing
Cardiac: Reports No Symptoms; Denies Chest Pain or Palpitations
Abdomen/GI: Reports Abdominal Pain (Mild tenderness around wound); Denies Nausea, Vomiting or Diarrhea
Genitourinary: Reports No Symptoms; Denies Dysuria or Frequency
Skin: Reports No Symptoms
Physical Exam
-
General: Well Developed, Well Nourished, No Apparent Distress, Comfortable and Obese
HEENT: Normocephalic and Atraumatic
Respiratory: Clear to Auscultation; Negative Wheezes or Crackles
Cardiac: Regular Rhythm and S1/S2; Negative Murmur
GI: Soft, Nondistended, Normal Bowel Sounds and Tender (Around wound site on right upper quadrant)
Musculoskeletal: No Clubbing, No Cyanosis, Edema, Left Upper Extrem (Nonpitting) and Edema, Right Lower Extrem (Nonpitting)
Skin: Warm, Dry and Rash (Large red patch on right side of abdomen, )
Neuro: Awake, Alert and Oriented
Psych: Calm
[2025-01-20 15:34] VITALS: BP 119/66
--- NOTE | 2025-01-20 16:18 | CM ---
Reviewed the chart notes and spoke with the patient at the bedside. IMM reviewed. Clinical and order form ready for attending signature for hospital bed from [facility]. Patient's current bed broken and requires new script for replacement. CM
continues to be available to patient/family and is monitoring medical plan for needs at discharge.
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
[2025-01-20 17:49] LABS: Glucose - Point of Care 90 mg/dl (70-99)
[2025-01-20] MEDS: REMOVE DURAGESIC PATCH 1 PATCH REMOVE ×2 (18:05)
[2025-01-20] MEDS: DILAUDID 4 MG PO (19:22)
[2025-01-20 19:26] VITALS: BP 145/68
[2025-01-20] MEDS: KEFLEX 500 MG PO (20:58)
[2025-01-20] MEDS: NEURONTIN 1200 MG PO (21:00)
[2025-01-20] MEDS: LIPITOR 40 MG PO (21:00)
[2025-01-20 21:03] LABS: Glucose - Point of Care 147 mg/dl (70-99)
[2025-01-20 23:04] VITALS: BP 143/74
[2025-01-21] MEDS: DILAUDID 4 MG PO ×3 (00:45→08:44)
[2025-01-21 03:22] VITALS: BP 119/58
[2025-01-21 06:00] VITALS: BMI 38.1
[2025-01-21 07:24] VITALS: BP 139/75
[2025-01-21 08:10] LABS: Glucose - Point of Care 108 mg/dl (70-99)
[2025-01-21] MEDS: DETROL LA 4 MG PO (08:14)
[2025-01-21] MEDS: SENOKOT-S 1 TABLET PO (08:14)
[2025-01-21] MEDS: NOVOLOG FLEXPEN-LOW RESISTANCE SC (08:14)
[2025-01-21] MEDS: NEURONTIN 800 MG PO (08:14)
[2025-01-21] MEDS: TOPROL XL 50 MG PO (08:14)
[2025-01-21] MEDS: CYMBALTA DELAYED RELEASE 60 MG PO (08:15)
[2025-01-21] MEDS: MIRALAX PO (08:15)
[2025-01-21] MEDS: ANTIFUNGAL CLEAR 1 APPLIC TOPICAL (08:15)
[2025-01-21] MEDS: CYMBALTA DELAYED RELEASE 30 MG PO (08:15)
[2025-01-21] MEDS: KEFLEX 500 MG PO (08:15)
--- NOTE | 2025-01-21 09:48 | CM ---
CM reviewed chart and noted dc order
Bedside meeting with pt
Plan for home with [facility] and [facility] bed, pt in agreement
Noted current bed at home not in working condition for the past few months
Signed Rx received and script faxed to [facility] [phone]
Pt notes friend will transport home
Offered BLS for safety and pt declined
IMM completed day prior and remains valid
Discharge Disposition- home with [facility] bed, TRE daily private duty, friend transport [address]
Fax- [phone]
--- NOTE | 2025-01-21 11:00 | PTCARENOTE ---
Patient discharged. D/c paperwork went over with patient. 2 Fentanyl patches on LUE still on patient at time of discharge. Both patches were CDI.
--- NOTE | 2025-01-21 13:11 | PN.CDI ---
CDI
- -
CDI:
Physician Documentation Request
Admit Date: 01/14/25 02:48
Dear Doctor Javier,
01/20 progress notes include a diagnosis of Bowel enterocutaneous fistula anterior mid abdomen.
01/19 hospitalist progress note states 'Bowel enterocutaneous fistula anterior mid abdomen ruled out'
01/14 surgery consult states 'Found to have chronic abdominal wounds likely related to increased tension and pressure from his large abdominal hernia, possibly related to a chronic mesh infection. No clear evidence of a ECF on exam. No indication
for surgical intervention at this time'
In an attempt to clarify potentially conflicting documentation, please clarify the following:
____ - Bowel enterocutaneous fistula anterior mid abdomen is present
____ - Bowel enterocutaneous fistula anterior mid abdomen was ruled out
____ - Other
Use of terms such as suspected, likely, concern for, or probable (associated with a specific diagnosis that is being evaluated, monitored, or treated as if it exists) are acceptable and can be coded in the inpatient setting, when documented at the
time of discharge.
Thank you,
Yvette Howard RN, BSN
CDI Specialist
tiger text
Please use your independent medical judgment in providing your response.
--- NOTE | 2025-01-21 13:22 | W.PN.HOSP.TC ---
Addendum entered and electronically signed by Kristen Martinez MD 01/21/25 13:45:
I saw and evaluated the patient independently. I reviewed the resident�s note and agree with findings and plan as documented by Dr. Herrera.
GENERAL: well developed, well nourished, male in no apparent distress
HEENT: NC/AT
HEART: regular rate and rhythm, +S1, +S2
LUNGS : clear to auscultation bilaterally
ABDOM: soft, nontender, nondistended, + bowel sounds--ostomy
EXT: no cyanosis, clubbing--pedal edema
NEUROLOGIC: grossly intact
Complicated Proteus UTI with obstructing left ureterovesical junction stone--s/p cystoscopy, left Ureteroscopy/basket extraction of stone 01/15 by Urology--blood cultures neg--finished IV ABX and transitioned to oral keflex to complete course
Gross hematuria post op--pt s/p CBI--Voiding trial successful
Atrial flutter/afib-- permanent--apprec cards--poor candidate for systemic anticoagulation due to chronic mild active bleeding at his abdominal wound site/skin graft (which has been present for years)--rate control
Bowel enterocutaneous fistula anterior mid abdomen is indeed ruled out by surgery--Complicated by noted hx of chronic abdominal wound--apprec surgery--no intervention at this time
Colorectal cancer status post colostomy and ileostomy
chronic diastolic CHF--no exacerbation--cont meds as able
essential HTN--cont meds as able
HLD--cont statin
NIDDM--Sliding scale insulin
Chronic back pain--continue with pain medications--follows with pain doctor
DVT proph
CODE STATUS--Full Code
d/c home
Original Note:
Today's Communication/Plan
-
patient medically stable for discharge
Assessment / Plan
Assessment / Plan
Mr Jackson is a 64-year-old gentleman with past medical history significant for with permanent atrial fibrillation (not on oral anticoagulation), HFrEF (recovered LVEF), colorectal cancer status post colectomy with colostomy and now ileostomy,
hypertension, dyslipidemia, type 2 diabetes mellitus, morbid obesity, and chronic pain syndrome who presented to the ER for complaints of weakness, urinary frequency, dysuria, that started 2 weeks prior and continued to worsen. He had been having
chills and nausea associated with the symptoms. He denied fever, no vomiting, no diarrhea. He lives at home alone and has a regular office technician that comes to house daily. He is mostly non-ambulatory, uses wheelchair at home.
# Complicated UTI with obstructing left ureterovesical junction stone
# nephrolithiasis
blood cultures x2 negative
that is new; punctate nonobstructing renal stone on the right
Complicated h/o recurrent UTIs and kidney stones
CT AP:
3 mm obstructing left ureterovesical junction calculus.
2 mm right nephrolith. No evidence for right ureteral calculus.
Urology will sign off - please call with any questions
s/p cystoscopy, left Ureteroscopy/basket extraction of stone 01/15 by Uro
to follow up outpatient
PO abx Keflex 500 mg twice daily
if stable, home on 01/21/25
#Gross hematuria post op,
pt was started with CBI, wean CBI as tolerated
Voiding trial succesful
Stopped Lovenox for DVT ppx with hematuria, use SCD instead
#Atrial flutter
#afib, permanent
has hx of atrial fibrillation
Cards consulted
Cont [employer] MECH[employer]IC HELPER metoprolol, now 50 mg daily, for rate control, continue at home
Pt is a poor candidate for systemic anticoagulation due to chronic mild active bleeding at his abdominal wound site/skin graft (which has been present for years).
Cards follow up
#enterocutaneous wound anterior mid abdomen
Complicated by noted hx of chronic abdominal wound
Per surgery, pt has chronic abdominal wounds likely related to increased tension and pressure from his large abdominal hernia, possibly related to a chronic mesh infection.
No clear evidence of a Enterocutaneous Fistula on exam.
No indication for surgical intervention at this time. Additionally, patient has no desire at this time for surgical intervention as a relates to these wounds.
Cont local wound care
# Colorectal cancer status post colostomy and ileostomy
continue to monitor
# CHF
stable, preserved EF
continue medications
# HTN
cont home meds
# Hypercholesterolemia
cont statin
# NIDDM,
Sliding scale insulin
Monitor blood glucose
# Chronic back pain
continue with pain medications
DVT proph
SCD
CODE STATUS
Full Code
Anticipated Discharge: Today
Subjective/Interval History
-
Patient was doing well. He reported no complaints with exception of pain control for which he sees a pain control doctor. Date of Service: January 21, 2025
Objective Data
-
Vital Signs:
Vital Signs
Temp Pulse Resp BP Pulse Ox
98.8 F 113 16 139/75 96
01/21/25 07:24 01/21/25 07:24 01/21/25 03:22 01/21/25 07:24 01/21/25 07:24
I&O
01/20/25 01/21/25 01/22/25
06:59 06:59 06:59
Intake Total 1060 / 1060 1500 / 1500
Output Total 1120 / 1120 1825 / 1825 150 / 150
Balance -60 / -60 -325 / -325 -150 / -150
Review of Systems
-
History Source: Patient
Constitutional: Reports No Symptoms; Denies Fever or No Appetite
EENT: Reports No Symptoms Reported; Denies Sore Throat or Runny Nose
Respiratory: Reports No Symptoms; Denies Cough or Trouble Breathing
Cardiac: Reports No Symptoms; Denies Chest Pain or Palpitations
Abdomen/GI: Reports No Symptoms and Pain (lower back pain); Denies Abdominal Pain or Nausea
Musculoskeletal: Reports No Symptoms
Neuro: Reports No Symptoms; Denies Dizzy or Headache
Physical Exam
-
General: Well Developed, Well Nourished, No Apparent Distress and Obese
HEENT: Normocephalic and Atraumatic
Respiratory: Clear to Auscultation; Negative Wheezes or Crackles
Cardiac: Regular Rhythm and S1/S2; Negative Murmur or Rub
GI: Soft, Nontender, Nondistended and Normal Bowel Sounds
Musculoskeletal: No Clubbing, Edema, Left Upper Extrem (non pitting) and Edema, Right Lower Extrem (non pitting)
Skin: Warm, Dry and Other (erythema on left abdomen without warmth, L wound on abdomen, R ostomy bag )
Neuro: Awake, Alert and Oriented
Psych: Calm
--- NOTE | 2025-01-21 15:22 | W.DCSUMMARY ---
Addendum entered and electronically signed by Kristen Martinez MD 01/21/25 18:45:
Read, reviewed, and agree. See same day progress note for additional details. Time spent coordinating care, DC planning, review of DC plan of care with resident, transition of care, review of records in EMR, med rec, consults, notes, d/w
consultants, nursing, family, and CM = 35 minutes
Original Note:
Discharge Summary
Discharge Data
Date of Admission: 01/14/25
Date of Discharge: 01/21/25
-
Pending Results: No
Hospital Course
Discharging Physician : Dr. Martinez, Dr. Herrera
Disposition : Home
Primary care physician : Unknown
Principal Discharge diagnosis : Complicated UTI with left renal stone
Chronic Discharge diagnosis :
permanent atrial fibrillation (not on oral anticoagulation)
HFrEF (recovered LVEF)
colorectal cancer status post colectomy with colostomy and now ileostomy
Essential hypertension
dyslipidemia
type 2 diabetes mellitus
morbid obesity
chronic pain syndrome
Hospital Course :
Mr. Jackson is a 64-year-old gentleman with past medical history significant for colon cancer status post bowel resection, ileostomy, multiple abdominal surgeries, CHF, hypertension, hyperlipidemia, diabetes, chronic pain on oral Dilaudid and high
doses of fentanyl patches (managed by pain specialist for 20 years), who presented to the emergency department via EMS secondary to complaints of weakness, urinary frequency, dysuria, that started 2 weeks prior and continued to worsen. He has been
having chills and nausea associated with the symptoms. He had leukocytosis WBC 11.8, was hypertensive tachycardic with a soft BP of 90/59. CT showed a 3 mm left UVJ stone, and suspicion for small bilateral enterocutaneous fistula. These RBCs and
many bacteria. On EKG patient was atrial flutter with 4:1 ratio. patient was started on Zosyn and he was admitted to the hospital. Surgery was consulted who decided that there was no surgical intervention needed for the abdominal wound has been
present for years and is being followed outpatient. Urology was consulted and patient was consented for cystoscopy with left lithotripsy and they retrieved the left obstructive stone. Patient had hematuria related to radiation cystitis after the
operation, urology inserted a Gonzalez did continuous bladder irrigation stopping hematuria. Gonzalez was removed after void trial and sensitivities came back along with urine cultures growing Proteus mirabilis sensitive to Zosyn and ceftriaxone patient
continued on Zosyn. Cardiology was consulted for the atrial flutter/atrial fibrillation not anticoagulation as he is not a good candidate, and they increased metoprolol from 25 mg to 50 to help with rate control. Mr. Jackson tolerated changes well,
and he was transition to oral antibiotics after completing 7-day IV antibiotic course. At discharge vital signs were stable.
Important imaging findings :
CT abdomen pelvis 01/13
IMPRESSION: 3 mm obstructing left ureterovesical junction calculus.
2 mm right nephrolith. No evidence for right ureteral calculus.
Soft tissue density in the presacral region and left lateral to the sacrum, stable, and likely scarring.
Colostomy is present.
Large hernia with protrusion of hernia sac toward the right with diffuse abdominal wall weakness. There is loss of subcutaneous fat overlying the anterior margin of the hernia sac. Some irregular soft tissue density along the right anterior margin
of the hernia sac as described, and some concern is raised for enterocutaneous fistula. Please correlate clinically.
Procedure findings :
01/13 urine culture
Proteus mirabilis
Pansensitive
EKG 01/13
ATRIAL FLUTTER WITH VARIABLE A-V BLOCK
NONSPECIFIC T WAVE ABNORMALITY
ABNORMAL ECG
WHEN COMPARED WITH ECG OF 23-MAY-2023 07:17,
ATRIAL FLUTTER HAS REPLACED ATRIAL FIBRILLATION
VENT. RATE HAS INCREASED BY 38 BPM
Discharge Plan
-
Patient Disposition: Home (Routine Discharge)
Discharge Diagnosis/Procedures: complicate urinary tract infection, obstructive urinary stone, enterocutaneous fistula
Condition: Fair
Diet: As tolerated
Activity: As tolerated
Driving Restrictions: As prior to admission
Bathing Restrictions: None
Referrals:
Marybel Millan NP [Specified Professional Personl, Cardiology] - 02/07/25 11:00 am
UNKNOWN - PT DOES,NOT KNOW [Family Provider]
Prescriptions:
New
cephalexin 500 mg Capsule
500 mg PO BID Qty: 6 0RF
metoprolol succinate 50 mg Tablet Extended Release 24 Hr
50 mg PO DAILY Qty: 30 0RF
Continued
multivitamin [One Daily Multivitamin] 1 EACH tablet
1 ea PO DAILY
atorvastatin 40 MG tablet
40 mg PO HS
gabapentin 800 mg Tablet
800 mg PO BID@0800,1600
sennosides [senna] 8.6 mg Tablet
8.6 mg PO DAILY
acetaminophen 325 mg Tablet
650 mg PO DAILY
docusate sodium [Colace] 100 mg Capsule
200 mg PO DAILY
cyanocobalamin (vitamin B-12) [Vitamin B-12] 1,000 mcg Tablet
1,000 mcg PO DAILY
gabapentin 600 mg Tablet
1,200 mg PO HS
cranberry 450 mg Tablet
1,000 mg PO DAILY
prochlorperazine maleate [Compazine] 10 mg tablet
10 mg PO Q8H PRN (Reason: nausea and vomiting) Qty: 10 0RF
fentanyl 100 MCG patch 72 hour
200 mcg transdermal Q72H Qty: 1 0RF
Rx Instructions:
01/14/25: last applied 2 patches 01/12/25
lisinopril 20 mg tablet
20 mg PO DAILY
ondansetron HCl 4 mg tablet
4 mg PO TIDPRN PRN (Reason: nausea)
methenamine hippurate 1 gram tablet
1 g PO BID
famotidine 20 mg tablet
20 mg PO DAILY
ascorbic acid (vitamin C) [Vitamin C] 500 mg tablet
1,000 mg PO DAILY
duloxetine 30 mg capsule,delayed release(DR/EC)
30 mg PO DAILY
duloxetine 60 mg capsule,delayed release(DR/EC)
60 mg PO DAILY
hydromorphone 8 mg tablet
8 mg PO Q4HPRN PRN (Reason: moderate/severe pain)
vitamin E 670 mg (1,000 unit) Capsule
670 mg PO DAILY
acetaminophen [Tylenol] 325 mg Tablet
650 mg PO Q6H PRN (Reason: mild pain)
aspirin 81 mg Tablet,Delayed Release (Dr/Ec)
81 mg PO DAILY
potassium 99 mg Tablet
99 mg PO DAILY
omeprazole 20 mg Capsule,Delayed Release(Dr/Ec)
20 mg PO DAILY
magnesium oxide 250 mg magnesium Tablet
250 mg PO DAILY
bisacodyl 5 mg Tablet
10 mg PO DAILY
vitamin K2 40 mcg Tablet
8.6 mcg PO DAILY
Vitamin A And D Supple
1 dose PO DAILY
polyethylene glycol 3350 [HealthyLax] 17 gram powder in packet
17 g PO DAILYPRN PRN (Reason: constipation)
ferrous sulfate [iron] 325 MG tablet
325 mg PO DAILY
Discontinued
metoprolol tartrate 25 mg Tablet
25 mg PO DAILY
Discharge Orders:
Discharge Patient (As Directed); Ordered 01/21/25
Ordered By: Roni Herrera
Discharge Date and Time
Discharge Date/Time: 01/21/25 11:13
Print Language: TONGAN
[2025-01-21 19:08] LABS: Stone Analysis Mass 33 mg
--- NOTE | 2025-01-22 13:19 | CM ---
Fax from [facility] requesting an attending physician sign and date form. updated form faxed to [facility].
== END 2025-01-21 11:13 | disposition home health service (06) | DRG 694 ==
LOC: 2 NORTH 02:48
PROVIDERS: Emergency Medicine; Internal Medicine; Student in an Organized Health Care Education/Training Program; Surgery; ADMITTING PHYSICIAN Internal Medicine; ATTENDING PHYSICIAN Internal Medicine; CONSULT PHYSICIAN Internal Medicine Cardiovascular Disease; EMERGENCY PHYSICIAN Emergency Medicine; OTHER PHYSICIAN Surgery
PROC: 0TC78ZZ Extirpation of Matter from Left Ureter, Via Natural or Artificial Opening Endoscopic (ICD-10-PCS; 2025-01-15)
DX: N20.2 Calculus of kidney with calculus of ureter (principal); N30.41 Irradiation cystitis with hematuria; F11.20 Opioid dependence, uncomplicated; I48.21 Permanent atrial fibrillation; I50.22 Chronic systolic (congestive) heart failure; I48.92 Unspecified atrial flutter; Y84.2 Radiological procedure and radiotherapy as the cause of abnormal reaction of the patient, or of later complication, without mention of misadventure at the time of the procedure; Z87.442 Personal history of urinary calculi; I11.0 Hypertensive heart disease with heart failure; Z85.048 Personal history of other malignant neoplasm of rectum, rectosigmoid junction, and anus; E78.00 Pure hypercholesterolemia, unspecified; E11.43 Type 2 diabetes mellitus with diabetic autonomic (poly)neuropathy; G89.4 Chronic pain syndrome; Z93.3 Colostomy status; Z90.49 Acquired absence of other specified parts of digestive tract; E66.01 Morbid (severe) obesity due to excess calories; Z68.38 Body mass index [BMI] 38.0-38.9, adult; B96.4 Proteus (mirabilis) (morganii) as the cause of diseases classified elsewhere; F32.A Depression, unspecified; G47.33 Obstructive sleep apnea (adult) (pediatric); K21.9 Gastro-esophageal reflux disease without esophagitis; N40.0 Benign prostatic hyperplasia without lower urinary tract symptoms; J44.9 Chronic obstructive pulmonary disease, unspecified; D64.9 Anemia, unspecified; I25.10 Atherosclerotic heart disease of native coronary artery without angina pectoris; K26.9 Duodenal ulcer, unspecified as acute or chronic, without hemorrhage or perforation; G51.0 Bell's palsy; K31.84 Gastroparesis; Z79.899 Other long term (current) drug therapy; Z79.82 Long term (current) use of aspirin; Z87.440 Personal history of urinary (tract) infections
CPT/HCPCS: 74176; 76000; 80048; 80053; 81003; 81015; 82365; 82962; 83036; 83605; 83735; 85025; 85027; 87040; 87070; 87077; 87086; 87147; 87186; 93005; 97163; 97530; A4300; C1769

== ENCOUNTER 2025-01-22 17:41 | Emergency (ER) | payer MEDICARE, OTHER, SELFPAY ==
[2025-01-22 17:57] VITALS: BP 122/99
[2025-01-22 18:02] VITALS: BMI 39.1
[2025-01-22 19:15] LABS: Hematocrit 35.4 % (39.0-52.0); Hemoglobin 11.2 g/dL (13.0-18.0); Mean Corp Hgb Conc. 31.6 g/dL (33.0-37.0); Mean Corpuscular Volume 89.4 fL (80.0-94.0); Nucleated Red Blood Cells % 0 % (-); Platelet Count 477 10^3/uL (130-400); Red Cell Dist. Width 14.7 % (11.5-14.5)
[2025-01-22 19:16] LABS: Urine Character Clear (Clear)
[2025-01-22] MEDS: DILAUDID 0.5 MG IV ×2 (19:21→22:25)
[2025-01-22] MEDS: ZOFRAN 4 MG IV (19:21)
[2025-01-22 19:28] LABS: Urine Squamous Cell 0-2 /LPF (Few)
[2025-01-22 19:29] LABS: Urine Red Blood Cell 26-30 /HPF (0-2); Urine White Cell 16-20 /HPF (0-5)
[2025-01-22 19:31] LABS: ALT (SGPT) 20 U/L (0-50); AST (SGOT) 21 U/L (17-59); Albumin 3.6 g/dl (3.5-5.0); Alkaline Phosphatase 105 U/L (38-126); Blood Urea Nitrogen 12 mg/dl (9-20); Calcium 8.7 mg/dl (8.4-10.2); Carbon Dioxide 29 mmol/L (22-30); Chloride 104 mmol/L (98-107); Estimated Creatinine Clearance > 125 ml/min; Glucose 102 mg/dl (70-99); Potassium 4.8 mmol/L (3.5-5.1); Sodium 138 mmol/L (135-145); Total Protein 6.7 g/dl (6.3-8.2); eGFR > 60.00
[2025-01-22 21:00] VITALS: BP 135/93
[2025-01-22 22:00] VITALS: BP 138/85
--- NOTE | 2025-01-22 22:33 | ED.GENMED ---
History of Present Illness
<Arely Angelo NP - Last Filed: 01/23/25 17:13>
General
Chief Complaint: Urinary Symptoms
Source: patient
Exam Limitations: none
Time Seen by Provider: 01/22/25 18:17
Nursing documentation reviewed up to this point in time: agreed with
History of Present Illness
History of Present Illness:
Patient to ED from [place] with complaint of intermittent spasms in penis. States it feels like there is a stone in his penis. Describes spasms as quick, sharp. Not responding to his typical pain meds. He was discharged home from here yesterday after
admission for UTI, renal stone. Currently taking Keflex bid. Denies fever/chills, n/v/d. NO abdominal pain. No other complaints.
Past History
<Arely Angelo NP - Last Filed: 01/23/25 17:13>
Past History
ED Past Medical History: Cancer (colon Ca), CHF, HTN, Hypercholesterolemia, NIDDM, Other (Duodenal ulcers), Other (Colon rectal cancer status post colostomy, chronic back pain, diabetes, recurrent UTIs) and Other (chronic pain, kidney stones,
urinary tract infections, dizziness, Ji's palsy)
ED Past Surgical History: Bowel resection (For treatment of rectal cancer, Ileostomy, Chronic sacral decub and abd open wound) and Other ( Rectal surgery, umbilical hernia surgery, Colostomy hernia repair)
Social History
Tobacco: Non-smoker
Alcohol: Occasional
Personal:
Living: alone
Employment: Disabled
Family History
Family History: Other (Noncontributory)
Review of Systems
<Arely Angelo NP - Last Filed: 01/23/25 17:13>
Review of Systems
Allergies reviewed?: Yes
All Other Systems: ROS reviewed and negative except as documented in HPI and ROS
Constitutional: Reports no symptoms
EENT: Reports no symptoms
Respiratory: Reports no symptoms
Cardiac: Reports no symptoms
ABD/GI: Reports no symptoms
: Reports other (spasming pain in penis)
Musculoskeletal: Reports no symptoms
Skin: Reports no symptoms
Neurological: Reports no symptoms
Psychiatric: Reports no symptoms
Phy Exam
<Arely Angelo [employer] - Last Filed: 01/23/25 17:13>
General Physical Exam
General Presentation: well appearing and no apparent distress
General Skin: warm and dry
General Habitus: normal
General Mental: alert
Gastrointestinal Exam
Gastrointestinal Exam: normal bowel sounds, non tender, soft, no organomegaly and non distended
Genitourinary Exam Male
Exam Male: circumcised, no discharge, normal external genitalia, normal testicular exam, no evidence of trauma, no lesions, no testicular swelling and no testicular tenderness
Musculoskeletal Exam
Musculoskeletal Exam: full ROM and neuro vasc intact
Skin Exam
Skin Exam: normal color, warm/dry and no rash
Psychiatric Exam
Psychiatric Exam: normal mood/affect
Course
<Arely Angelo [employer] - Last Filed: 01/23/25 17:13>
Orders/Labs/Results
Orders:
Orders
01/22/25 18:18
Bladder Scan- Treatment ONCE
01/22/25 18:56
Complete Blood Count/With Diff Urgent
Comprehensive Metabolic Panel Urgent
01/22/25 19:09
Urinalysis Reflex To Culture Urgent
Date Specimen was Collected: 01/22/25
Time Specimen was Collected: 19:08
Urine Microscopic Reflex Cult Urgent
Urine Culture Urgent
CLEO Source: U
Specimen Description:
Date Specimen was Collected: 01/22/25
Time Specimen was Collected: 19:08
01/22/25 19:12
HYDROmorphone [Dilaudid] 0.5 mg IV NOW STA
Ondansetron Injectable [Zofran] 4 mg IV NOW STA
01/22/25 19:47
Abdomen Xray - 1 View [CR Abdomen - 1 View] Urgent
Comment:
Reason For Exam: KUB. Urethra pain
01/22/25 21:44
HYDROmorphone [Dilaudid] 0.5 mg IV NOW STA
01/22/25 22:30
Phenazopyridine HCl [Pyridium] 200 mg PO NOW STA
01/23/25 00:02
Cephalexin Monohydrate [Keflex] 500 mg PO NOW STA
Abnormal Lab Results
01/22/25 01/22/25
18:56 19:09
WBC 11.8 H 10^3/uL
(4.8-10.8)
RBC 3.96 L 10^6/uL
(4.70-6.10)
Hgb 11.2 L g/dL
(13.0-18.0)
Hct 35.4 L %
(39.0-52.0)
MCHC 31.6 L g/dL
(33.0-37.0)
RDW 14.7 H %
(11.5-14.5)
Plt Count 477 H D 10^3/uL
(130-400)
Abs Immat Gran (auto) 0.1 H 10^3/uL
(0-0.05)
Absolute Neuts (auto) 9.0 H 10^3/uL
(1.4-6.5)
Absolute Monos (auto) 0.9 H 10^3/uL
(0.1-0.6)
Neutrophils % 76.5 H %
(42.2-75.2)
Lymphocytes % 10.6 L %
(20.5-51.1)
Glucose 102 H mg/dl
(70-99)
Ur Occult Blood Reflex 3+ A
(Negative)
Leukocyte Esterase Rfl 1+ A
(Negative)
Urine RBC 26-30 A /HPF
(0-2)
Urine WBC (Reflex) 16-20 A /HPF
(0-5)
Urine Bacteria (Reflex) Few A
(Negative)
Urine Albumin (Reflex) 2+ A
(Neg - Trace)
01/22/25 18:56
01/22/25 18:56
Vital Signs
Initial and Last Documented VS:
Initial Vital Signs
Temp Pulse Resp BP Pulse Ox
99.0 F 112 16 122/99 98
01/22/25 17:57 01/22/25 17:57 01/22/25 17:57 01/22/25 17:57 01/22/25 17:57
Last Documented Vital Signs
Temp Pulse Resp BP Pulse Ox
99.0 F 130 25 128/74 98
01/22/25 17:57 01/23/25 00:00 01/23/25 00:00 01/23/25 00:00 01/23/25 00:00
<Estelle Young, DO - Last Filed: 01/23/25 06:43>
Orders/Labs/Results
Orders:
Orders
01/22/25 18:18
Bladder Scan- Treatment ONCE
01/22/25 18:56
Complete Blood Count/With Diff Urgent
Comprehensive Metabolic Panel Urgent
01/22/25 19:09
Urinalysis Reflex To Culture Urgent
Date Specimen was Collected: 01/22/25
Time Specimen was Collected: 19:08
Urine Microscopic Reflex Cult Urgent
Urine Culture Urgent
CLEO Source: U
Specimen Description:
Date Specimen was Collected: 01/22/25
Time Specimen was Collected: 19:08
01/22/25 19:12
HYDROmorphone [Dilaudid] 0.5 mg IV NOW STA
Ondansetron Injectable [Zofran] 4 mg IV NOW STA
01/22/25 19:47
Abdomen Xray - 1 View [CR Abdomen - 1 View] Urgent
Comment:
Reason For Exam: KUB. Urethra pain
01/22/25 21:44
HYDROmorphone [Dilaudid] 0.5 mg IV NOW STA
01/22/25 22:30
Phenazopyridine HCl [Pyridium] 200 mg PO NOW STA
01/23/25 00:02
Cephalexin Monohydrate [Keflex] 500 mg PO NOW STA
Abnormal Lab Results
01/22/25 01/22/25
18:56 19:09
WBC 11.8 H 10^3/uL
(4.8-10.8)
RBC 3.96 L 10^6/uL
(4.70-6.10)
Hgb 11.2 L g/dL
(13.0-18.0)
Hct 35.4 L %
(39.0-52.0)
MCHC 31.6 L g/dL
(33.0-37.0)
RDW 14.7 H %
(11.5-14.5)
Plt Count 477 H D 10^3/uL
(130-400)
Abs Immat Gran (auto) 0.1 H 10^3/uL
(0-0.05)
Absolute Neuts (auto) 9.0 H 10^3/uL
(1.4-6.5)
Absolute Monos (auto) 0.9 H 10^3/uL
(0.1-0.6)
Neutrophils % 76.5 H %
(42.2-75.2)
Lymphocytes % 10.6 L %
(20.5-51.1)
Glucose 102 H mg/dl
(70-99)
Ur Occult Blood Reflex 3+ A
(Negative)
Leukocyte Esterase Rfl 1+ A
(Negative)
Urine RBC 26-30 A /HPF
(0-2)
Urine WBC (Reflex) 16-20 A /HPF
(0-5)
Urine Bacteria (Reflex) Few A
(Negative)
Urine Albumin (Reflex) 2+ A
(Neg - Trace)
01/22/25 18:56
01/22/25 18:56
Vital Signs
Initial and Last Documented VS:
Initial Vital Signs
Temp Pulse Resp BP Pulse Ox
99.0 F 112 16 122/99 98
01/22/25 17:57 01/22/25 17:57 01/22/25 17:57 01/22/25 17:57 01/22/25 17:57
Last Documented Vital Signs
Temp Pulse Resp BP Pulse Ox
99.0 F 130 25 128/74 98
01/22/25 17:57 01/23/25 00:00 01/23/25 00:00 01/23/25 00:00 01/23/25 00:00
<Arely Angelo NP - Last Filed: 01/23/25 17:13>
*Radiology
Radiology exam reviewed: radiology read reviewed
*Pulse Oximetry
SaO2: 94
Oxygen Mode of Delivery: Room air
Patient hypoxic: no
*Critical Care Note
Total Time (30-74mins, 75-104mins- exclusive of procedures): Not Applicable
<Arely Angelo NP - Last Filed: 01/23/25 17:13>
Update Note
Update Note:
Patient to ED with complaint of intermittent spasms in penis. States it feels like there is a stone stuck in his penis. Taking his po dilaudid and fentanyl patch without improvement, Denies fever/chills. Urinating without difficulty. Labs, UA
reviewed. On keflex presently, will continue and await culture results. No concerning findings on exam. WIll place on pyridium and discharge back to [place]. He will follo wup with urology as scheduled.
ED Attending Note
<Arely Angelo NP - Last Filed: 01/23/25 17:13>
-
Portions of this chart may have been created with voice recognition software.� Occasional wrong word or��sound alike� substitutions may have occurred due to the inherent limitations of voice recognition software.
<Estelle Young DO - Last Filed: 01/23/25 06:43>
ED Attending Note
Patient seen and examined by attending physician: Yes
I performed a history and physical exam of patient and discussed management with resident, I reviewed resident's note and agree with documented findings and plan of care.: Yes
ED Attending Note:
64-year-old obese gentleman with history of colon cancer status post bowel resection, ileostomy, multiple abdominal surgeries, chronic pain maintained on fentanyl patch as well as significant amount of Dilaudid on daily basis.
Recent hospitalization January 13 to yesterday, January 21 for treatment of UTI with left UVJ stone. Underwent cystoscopy with stone retrieval. Urine culture positive for Proteus mirabilis. Treated with IV Zosyn, transition to Keflex for additional 3
days.
He was noted to have small bilateral enterocutaneous fistula. Surgery consulted and decided there was no surgical intervention needed for abdominal wound that has been present for years and is being followed as an outpatient.
He presents tonight with complaints of urethral pain/penile pain. He has had no hematuria. No fever.
64-year-old obese gentleman appears older than stated age. Appears somewhat chronically debilitated. Overall no acute distress. Frequent request for IV Dilaudid.
Abdomen is soft without appreciable tenderness.
Bladder scan reveals no urinary obstruction.
Labs show mildly elevated white blood cell count of 11.8, mild but stable H&H.
Unremarkable chemistries.
Urinalysis shows few bacteria, 16-20 WBCs, 26-30 RBCs, all improving compared to previous.
I suspect urethritis related to recent cystoscopy and recommend short course of Pyridium.
Recommend continuing Keflex until finished. At this point no indication for additional antibiotics nor change in antibiotics. Urine culture is pending.
No indication for imaging. Abdomen is soft without appreciable tenderness.
Recommend he continue with his usual outpatient pain medication regimen.
Will discharge back to assisted living facility
Discharge Plan
Departure
Patient Disposition: Home (Routine Discharge)
Date of Disposition: 01/22/25
Time of Disposition: 22:31
Patient with high blood pressure during this ER visit?: No
Condition: Good
Covid-19: Not Applicable
Discharge Problem:
Pain in penis
Prescriptions:
New
phenazopyridine [Pyridium] 200 mg tablet
200 mg PO TID PRN (Reason: Pain) Qty: 15 0RF
No Action
multivitamin [One Daily Multivitamin] 1 EACH tablet
1 ea PO DAILY
atorvastatin 40 MG tablet
40 mg PO HS
gabapentin 800 mg Tablet
800 mg PO BID@0800,1600
sennosides [senna] 8.6 mg Tablet
8.6 mg PO DAILY
acetaminophen 325 mg Tablet
650 mg PO DAILY
docusate sodium [Colace] 100 mg Capsule
200 mg PO DAILY
cyanocobalamin (vitamin B-12) [Vitamin B-12] 1,000 mcg Tablet
1,000 mcg PO DAILY
gabapentin 600 mg Tablet
1,200 mg PO HS
cranberry 450 mg Tablet
1,000 mg PO DAILY
prochlorperazine maleate [Compazine] 10 mg tablet
10 mg PO Q8H PRN (Reason: nausea and vomiting) Qty: 10 0RF
fentanyl 100 MCG patch 72 hour
200 mcg transdermal Q72H Qty: 1 0RF
Rx Instructions:
01/14/25: last applied 2 patches 01/12/25
lisinopril 20 mg tablet
20 mg PO DAILY
ondansetron HCl 4 mg tablet
4 mg PO TIDPRN PRN (Reason: nausea)
methenamine hippurate 1 gram tablet
1 g PO BID
famotidine 20 mg tablet
20 mg PO DAILY
ascorbic acid (vitamin C) [Vitamin C] 500 mg tablet
1,000 mg PO DAILY
duloxetine 30 mg capsule,delayed release(DR/EC)
30 mg PO DAILY
duloxetine 60 mg capsule,delayed release(DR/EC)
60 mg PO DAILY
hydromorphone 8 mg tablet
8 mg PO Q4HPRN PRN (Reason: moderate/severe pain)
vitamin E 670 mg (1,000 unit) Capsule
670 mg PO DAILY
acetaminophen [Tylenol] 325 mg Tablet
650 mg PO Q6H PRN (Reason: mild pain)
aspirin 81 mg Tablet,Delayed Release (Dr/Ec)
81 mg PO DAILY
potassium 99 mg Tablet
99 mg PO DAILY
omeprazole 20 mg Capsule,Delayed Release(Dr/Ec)
20 mg PO DAILY
magnesium oxide 250 mg magnesium Tablet
250 mg PO DAILY
bisacodyl 5 mg Tablet
10 mg PO DAILY
vitamin K2 40 mcg Tablet
8.6 mcg PO DAILY
Vitamin A And D Supple
1 dose PO DAILY
polyethylene glycol 3350 [HealthyLax] 17 gram powder in packet
17 g PO DAILYPRN PRN (Reason: constipation)
ferrous sulfate [iron] 325 MG tablet
325 mg PO DAILY
cephalexin 500 mg Capsule
500 mg PO BID Qty: 6 0RF
metoprolol succinate 50 mg Tablet Extended Release 24 Hr
50 mg PO DAILY Qty: 30 0RF
Referrals:
Washington Harrell DO [Family Provider, Family Practice]
Interventions
Interventions:
*Risk Screen - Suicide Last Done: 01/22/25 17:57
*General Assessment Last Done: 01/22/25 18:03
*Neglect/Abuse Screening Last Done: 01/22/25 17:57
*ED- Fall Risk Assessment Last Done: 01/22/25 18:03
*ED COVID-19 Vaccine History Last Done: 01/22/25 17:57
*Nursing Disposition Last Done: 01/23/25 00:41
ED-Male Genitourinary Assessment Last Done: 01/22/25 17:57
Discharge Date and Time
Discharge Date/Time: 01/23/25 00:41
Print Language: MALAY
[2025-01-23] VITALS: BP 128/74
[2025-01-23] MEDS: KEFLEX 500 MG PO (00:07)
== END 2025-01-23 00:41 | disposition home or self-care (01) ==
LOC: EMR 17:41
PROVIDERS: Emergency Medicine; Nurse Practitioner; EMERGENCY PHYSICIAN Emergency Medicine; FAMILY PHYSICIAN Student in an Organized Health Care Education/Training Program
DX: N48.89 Other specified disorders of penis (principal); M62.838 Other muscle spasm; R30.0 Dysuria; I11.0 Hypertensive heart disease with heart failure; I50.9 Heart failure, unspecified; E78.00 Pure hypercholesterolemia, unspecified; E11.9 Type 2 diabetes mellitus without complications; G89.29 Other chronic pain; M54.9 Dorsalgia, unspecified; E66.9 Obesity, unspecified; Z79.82 Long term (current) use of aspirin; Z85.048 Personal history of other malignant neoplasm of rectum, rectosigmoid junction, and anus; Z87.442 Personal history of urinary calculi; Z87.440 Personal history of urinary (tract) infections; Z87.11 Personal history of peptic ulcer disease; Z98.0 Intestinal bypass and anastomosis status
CPT/HCPCS: 99285; 96374; 96375; 96376; 51798; 74018; 80053; 81003; 81015; 85025; 87086

== ENCOUNTER 2025-01-24 11:01 | Inpatient (IN) | payer MEDICARE, OTHER, SELFPAY ==
[2025-01-23 18:41] VITALS: BP 108/81
[2025-01-23 19:21] VITALS: BP 127/67
[2025-01-23 20:00] VITALS: BP 119/63
[2025-01-23 21:00] VITALS: BP 113/65
[2025-01-23 22:00] VITALS: BP 109/54
[2025-01-23 23:00] VITALS: BP 95/60
[2025-01-23] MEDS: DILAUDID 0.5 MG IV (23:40)
[2025-01-23 23:41] LABS: Hematocrit 32.7 % (39.0-52.0); Hemoglobin 10.5 g/dL (13.0-18.0); Mean Corp Hgb Conc. 32.1 g/dL (33.0-37.0); Mean Corpuscular Volume 89.1 fL (80.0-94.0); Nucleated Red Blood Cells % 0 % (-); Platelet Count 425 10^3/uL (130-400); Red Cell Dist. Width 14.5 % (11.5-14.5)
--- NOTE | 2025-01-23 23:52 | ED.GENMED ---
History of Present Illness
General
Chief Complaint: Male Genito-Urinary Symptoms
Source: patient
Exam Limitations: none
Time Seen by Provider: 01/23/25 19:41
Nursing documentation reviewed up to this point in time: agreed with
History of Present Illness
History of Present Illness:
Patient to ED with complaitn of urinary fequency, dysuria. He was seen in ED last PM for pain in penis. Given rx for pyridium which resolved that issue. Returns today stating he is not emptyiing his bladder. Denies fever/chills. Brought to ED
via EMS for eval.
Past History
Past History
ED Past Medical History: Cancer (colon Ca), CHF, HTN, Hypercholesterolemia, NIDDM, Other (Duodenal ulcers), Other (Colon rectal cancer status post colostomy, chronic back pain, diabetes, recurrent UTIs) and Other (chronic pain, kidney stones,
urinary tract infections, dizziness, Ji's palsy)
ED Past Surgical History: Bowel resection (For treatment of rectal cancer, Ileostomy, Chronic sacral decub and abd open wound) and Other ( Rectal surgery, umbilical hernia surgery, Colostomy hernia repair)
Social History
Tobacco: Non-smoker
Alcohol: Occasional
Personal:
Living: alone
Employment: Disabled
Family History
Family History: Other (Noncontributory)
Review of Systems
Review of Systems
Allergies reviewed?: Yes
All Other Systems: ROS reviewed and negative except as documented in HPI and ROS
Constitutional: Reports no symptoms
EENT: Reports no symptoms
Respiratory: Reports no symptoms
Cardiac: Reports no symptoms
ABD/GI: Reports no symptoms
: Reports dysuria, frequency and difficulty voiding
Musculoskeletal: Reports no symptoms
Skin: Reports no symptoms
Neurological: Reports no symptoms
Psychiatric: Reports no symptoms
Phy Exam
General Physical Exam
General Presentation: mild distress
General age: appears stated age
General Skin: warm and dry
General Habitus: normal
General Mental: alert
Cardiovascular Exam
Cardiovascular Exam: irregularly irregular
Gastrointestinal Exam
Gastrointestinal Exam: normal bowel sounds, non tender and soft
Musculoskeletal Exam
Musculoskeletal Exam: full ROM and neuro vasc intact
Skin Exam
Skin Exam: normal color, warm/dry and no rash
Psychiatric Exam
Psychiatric Exam: normal mood/affect
Course
Orders/Labs/Results
Orders:
Orders
01/23/25 18:48
Electrocardiogram (*1) Urgent
Reason for Study: Tachycardia
01/23/25 18:49
EKG- Treatment ONCE
01/23/25 19:46
CT Abd/pel Without Iv Or Oral Urgent
Comment:
Reason For Exam: difficulty voiding
01/23/25 23:19
HYDROmorphone [Dilaudid] 0.5 mg IV NOW STA
01/23/25 23:32
CMP [Comprehensive Metabolic Panel] Urgent
Complete Blood Count/With Diff Urgent
01/23/25 23:45
Urinalysis Reflex To Culture Urgent
Date Specimen was Collected: 01/23/25
Time Specimen was Collected: 23:44
Urine Microscopic Reflex Cult Urgent
Urine Culture Urgent
CLEO Source: U
Specimen Description:
Date Specimen was Collected: 01/23/25
Time Specimen was Collected: 23:44
01/24/25 00:12
0.9% Sodium Chloride 1000 ml [Nss] 1,000 ml IV BOLUS
Cefepime HCl [Maxipime] 2,000 mg IV NOW STA
Abnormal Lab Results
01/23/25 01/23/25
23:32 23:45
WBC 11.7 H 10^3/uL
(4.8-10.8)
RBC 3.67 L 10^6/uL
(4.70-6.10)
Hgb 10.5 L g/dL
(13.0-18.0)
Hct 32.7 L %
(39.0-52.0)
MCHC 32.1 L g/dL
(33.0-37.0)
Plt Count 425 H 10^3/uL
(130-400)
Abs Immat Gran (auto) 0.1 H 10^3/uL
(0-0.05)
Absolute Neuts (auto) 9.3 H 10^3/uL
(1.4-6.5)
Absolute Monos (auto) 0.8 H 10^3/uL
(0.1-0.6)
Neutrophils % 79.2 H %
(42.2-75.2)
Lymphocytes % 10.3 L %
(20.5-51.1)
Creatinine 0.6 L mg/dL
(0.7-1.3)
Glucose 116 H mg/dl
(70-99)
Total Protein 6.2 L g/dl
(6.3-8.2)
Albumin 3.3 L g/dl
(3.5-5.0)
Ur Occult Blood Reflex 2+ A
(Negative)
Urine Nitrite (Reflex) Positive A
(Negative)
Urine Bilirubin 2+ A
(Negative)
Urine Urobilinogen 2+ A
(Neg - 1+)
Leukocyte Esterase Rfl 1+ A
(Negative)
Urine RBC 11-15 A /HPF
(0-2)
Urine WBC (Reflex) 11-15 A /HPF
(0-5)
Urine Bacteria (Reflex) Few A
(Negative)
Urine Albumin (Reflex) 2+ A
(Neg - Trace)
01/23/25 23:32
01/23/25 23:32
Vital Signs
Initial and Last Documented VS:
Initial Vital Signs
Temp Pulse Resp BP Pulse Ox
98.8 F 75 18 108/81 97
01/23/25 18:41 01/23/25 18:41 01/23/25 18:41 01/23/25 18:41 01/23/25 18:41
Last Documented Vital Signs
Temp Pulse Resp BP Pulse Ox
98.8 F 114 18 119/63 92
01/23/25 18:41 01/23/25 20:00 01/23/25 18:41 01/23/25 20:00 01/23/25 23:53
*Radiology
Radiology exam reviewed: radiology read reviewed
*Pulse Oximetry
SaO2: 92
Oxygen Mode of Delivery: Room air
Patient hypoxic: no
*Critical Care Note
Total Time (30-74mins, 75-104mins- exclusive of procedures): Not Applicable
Update Note
Update Note:
Patient returns to ED tonight reporting difficulty urinating, increasing urgency. Bladder scan <100 cc. Urinalysis confirming UTI. He reports he was discharged home 2 days ago with rx for antibiotic but was unable to pick it up. He is afebrile
in ED. Weak, tachycardic. Cefepime ordered. Will admit to hospitalist service
ED Attending Note
-
Portions of this chart may have been created with voice recognition software.� Occasional wrong word or��sound alike� substitutions may have occurred due to the inherent limitations of voice recognition software.
Discharge Plan
Departure
Patient Disposition: Admit
Date of Disposition: 01/24/25
Time of Disposition: 00:12
Presentation/result/management discussed w/ accepting MD/DO: Hospitalist
Patient with high blood pressure during this ER visit?: No
Condition: Fair
Covid-19: Not Applicable
Discharge Problem:
UTI (urinary tract infection), Weakness
Prescriptions:
No Action
multivitamin [One Daily Multivitamin] 1 EACH tablet
1 ea PO DAILY
atorvastatin 40 MG tablet
40 mg PO HS
gabapentin 800 mg Tablet
800 mg PO BID@0800,1600
sennosides [senna] 8.6 mg Tablet
8.6 mg PO DAILY
acetaminophen 325 mg Tablet
650 mg PO DAILY
docusate sodium [Colace] 100 mg Capsule
200 mg PO DAILY
cyanocobalamin (vitamin B-12) [Vitamin B-12] 1,000 mcg Tablet
1,000 mcg PO DAILY
gabapentin 600 mg Tablet
1,200 mg PO HS
cranberry 450 mg Tablet
1,000 mg PO DAILY
prochlorperazine maleate [Compazine] 10 mg tablet
10 mg PO Q8H PRN (Reason: nausea and vomiting) Qty: 10 0RF
fentanyl 100 MCG patch 72 hour
200 mcg transdermal Q72H Qty: 1 0RF
Rx Instructions:
01/14/25: last applied 2 patches 01/12/25
lisinopril 20 mg tablet
20 mg PO DAILY
ondansetron HCl 4 mg tablet
4 mg PO TIDPRN PRN (Reason: nausea)
methenamine hippurate 1 gram tablet
1 g PO BID
famotidine 20 mg tablet
20 mg PO DAILY
ascorbic acid (vitamin C) [Vitamin C] 500 mg tablet
1,000 mg PO DAILY
duloxetine 30 mg capsule,delayed release(DR/EC)
30 mg PO DAILY
duloxetine 60 mg capsule,delayed release(DR/EC)
60 mg PO DAILY
hydromorphone 8 mg tablet
8 mg PO Q4HPRN PRN (Reason: moderate/severe pain)
vitamin E 670 mg (1,000 unit) Capsule
670 mg PO DAILY
acetaminophen [Tylenol] 325 mg Tablet
650 mg PO Q6H PRN (Reason: mild pain)
aspirin 81 mg Tablet,Delayed Release (Dr/Ec)
81 mg PO DAILY
potassium 99 mg Tablet
99 mg PO DAILY
omeprazole 20 mg Capsule,Delayed Release(Dr/Ec)
20 mg PO DAILY
magnesium oxide 250 mg magnesium Tablet
250 mg PO DAILY
bisacodyl 5 mg Tablet
10 mg PO DAILY
vitamin K2 40 mcg Tablet
8.6 mcg PO DAILY
Vitamin A And D Supple
1 dose PO DAILY
polyethylene glycol 3350 [HealthyLax] 17 gram powder in packet
17 g PO DAILYPRN PRN (Reason: constipation)
ferrous sulfate [iron] 325 MG tablet
325 mg PO DAILY
cephalexin 500 mg Capsule
500 mg PO BID Qty: 6 0RF
metoprolol succinate 50 mg Tablet Extended Release 24 Hr
50 mg PO DAILY Qty: 30 0RF
phenazopyridine [Pyridium] 200 mg tablet
200 mg PO TID PRN (Reason: Pain) Qty: 15 0RF
Referrals:
Washington Harrell DO [Family Provider, Family Practice]
Interventions
Interventions:
*Risk Screen - Suicide Last Done: 01/23/25 18:41
*General Assessment Last Done: 01/23/25 18:41
ED-Male Genitourinary Assessment Last Done: 01/23/25 20:32
Discharge Date and Time
Print Language: UPPER SORBIAN
[2025-01-23 23:57] LABS: Urine Character Clear (Clear)
[2025-01-24] VITALS: BP 107/61
[2025-01-24 00:11] LABS: ALT (SGPT) 18 U/L (0-50); AST (SGOT) 19 U/L (17-59); Albumin 3.3 g/dl (3.5-5.0); Alkaline Phosphatase 93 U/L (38-126); Blood Urea Nitrogen 13 mg/dl (9-20); Calcium 8.6 mg/dl (8.4-10.2); Carbon Dioxide 29 mmol/L (22-30); Chloride 105 mmol/L (98-107); Glucose 116 mg/dl (70-99); Potassium 4.4 mmol/L (3.5-5.1); Sodium 139 mmol/L (135-145); Total Protein 6.2 g/dl (6.3-8.2); eGFR > 60.00
--- NOTE | 2025-01-24 00:57 | HPS.HSE ---
Family Physician
-
Family Physician: Washington Harrell,
Chief Complaint
-
Dysuria
History of Present Illness
This is a 64-year-old with extensive past medical history including pulmonary atrial fibrillation not on anticoagulation, congestive heart failure, hypertension, hyperlipidemia, diabetes, colon cancer status post bowel resection with ileostomy and
multiple abdominal surgeries, chronic pain on oral Dilaudid and fentanyl patches who comes to the emergency department for continued urinary symptoms.
Patient was admitted about a week ago with approximately 2 weeks on for ongoing urinary frequency dysuria and weakness and was found to have a urinary tract infection with sepsis at that time. He had a left UVJ stone 3 mm with small bilateral
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 Patient did not require surgery and was treated with Zosyn. Ultimately patient did undergo cystoscopy with left lithotripsy and retrieval of the left obstructive stone. Patient's course was complicated by
radiation cystitis and a Gonzalez was inserted and ultimately discontinued with voiding trial passed by patient. He is cultures grew Proteus which was sensitive to Zosyn and Zosyn was continued. Patient was ultimately transition to oral antibiotics
after a 7 days of IV Zosyn. He was discharged on cephalexin.
Patient was seen yesterday in the emergency department for dysuria with complaints of pain in the penis without any hematuria. He was given Pyridium with resolution of that issue. He continues with symptoms today complaining of frequency and not
been able to empty his bladder. He denies any fevers or chills.
In the emergency department the patient remained afebrile with a temp of 98.8, blood pressure was 120/60 with a pulse rate of 114 and was satting 98% on room air.
White count was 11.7, hemoglobin and platelets were similar to prior 10.5 on 420. His electrolytes were all stable. BUN/creatinine were unchanged from prior normal. Glucose was 116.
UA remains positive with positive nitrite leukocyte Estrace WBC and few bacteria.
Medical History
Past Medical History
Past Medical History: Reports Other
Additional Past Medical History:
depression
GERSNO
GERD
HLD
HTN
BPH
COPD
vertigo
anemia
DVT
CAD
CHF
colon ca
chronic abdomen wound
type 2 Dm
Past Surgical History: Reports Other
Additional Past Surgical History:
colon resection with ileostomy
hernia repair
Bowel resection (For treatment of rectal cancer, Ileostomy, Chronic sacral decub and abd open wound) and Other ( Rectal surgery, umbilical hernia surgery, Colostomy hernia repair)
Social History
Tobacco: Non-smoker
Alcohol: None
Drug: None
Personal: Single
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
Family History
Family History: Not pertinent
Allergies / Home Medications
Allergies reflects when Allergies were last updated in [facility].
Home Medications with original date entered in [facility]
Allergy/Medication List:
Allergies
Allergy/AdvReac Type Severity Reaction Status Date / Time
No Known Allergies Allergy Verified 05/23/23 04:59
Home Medications
aspirin 81 mg chewable tablet 81 mg PO DAILY Blood Clot Prevention/Tx 07/02/16
atorvastatin 40 mg tablet 40 mg PO HS High Cholesterol 07/02/16
multivitamin (One Daily Multivitamin tablet) 1 ea PO DAILY Supplement 07/02/16
acetaminophen 325 mg tablet 650 mg PO Q6H PRN temp>100/mild pain 05/23/23
bisacodyl 10 mg rectal suppository (Dulcolax (bisacodyl)) 10 mg MA DAILY PRN if MOM ineffective 05/23/23
cranberry fruit 450 mg tablet (cranberry) 450 mg PO TID Supplement 05/23/23
cyanocobalamin (vitamin B-12) 1,000 mcg tablet (Vitamin B-12) 1,000 mcg PO DAILY Supplement 05/23/23
docusate sodium 100 mg capsule (Colace) 200 mg PO DAILY Constipation 05/23/23
duloxetine 30 mg capsule,delayed release (Cymbalta) 30 mg PO DAILY Depression 05/23/23
duloxetine 60 mg capsule,delayed release (Cymbalta) 60 mg PO DAILY Depression 05/23/23
gabapentin 600 mg tablet 1,200 mg PO HS Neurological Condition 05/23/23
gabapentin 800 mg tablet 800 mg PO BID Neurological Condition 05/23/23
lisinopril 40 mg tablet 40 mg PO DAILY Blood Pressure 05/23/23
magnesium hydroxide 400 mg/5 mL oral suspension (Milk of Magnesia) 30 ml PO DAILY PRN if no BM x 3 days 05/23/23
methenamine hippurate 1 gram tablet (Hiprex) 1 g PO DAILY Urinary Issue 05/23/23
metoprolol tartrate 25 mg tablet 25 mg PO BID Blood Pressure 05/23/23
sennosides 8.6 mg tablet (senna) 8.6 mg PO HS Constipation 05/23/23
sodium phosphates 19 gram-7 gram/118 mL enema (Fleet Enema) 118 ml MA DAILYPRN PRN if dulcolax ineffective 05/23/23
tamsulosin 0.4 mg capsule (Flomax) 0.4 mg PO DAILY Urinary Issue 05/23/23
fentanyl 100 mcg/hr transdermal patch 200 mcg transdermal Q72H apply to clean, dry, hairless area on body #1 ea 05/26/23
ferrous sulfate 325 mg (65 mg iron) tablet (iron) 325 mg PO Q2D Supplement #0 tabs 05/26/23
hydromorphone 8 mg tablet 8 mg PO Q4H PRN moderate/severe pain #5 tabs 05/26/23
pantoprazole 40 mg tablet,delayed release 40 mg PO DAILY #0 tabs 05/26/23
polyethylene glycol 3350 17 gram oral powder packet (HealthyLax) 17 g PO DAILY #0 ea 05/26/23
prochlorperazine maleate 10 mg tablet (Compazine) 10 mg PO Q8H PRN nausea and vomiting #10 tabs 05/26/23
Review of Systems
-
A 12 point ROS was completed and negative except as noted: Yes
Physical Exam
Vital Signs
Vital Signs
Temp Pulse Resp BP Pulse Ox
98.8 F 114 18 119/63 92
01/23/25 18:41 01/23/25 20:00 01/23/25 18:41 01/23/25 20:00 01/23/25 23:53
Physical Exam
General: Appears Chronically Ill and Morbidly Obese
HEENT: NormoCephalic, Anicteric and Moist mucous membranes
Respiratory: Clear
Cardiac: S1/S2 and Regular Rhythm
GI: Soft, Non Tender, Non Distended and Other (ileostomy bag c/d/i)
Musculoskeletal: No Clubbing, No Cyanosis and No Edema
Skin: Warm and Dry
Neuro: AO x 3, No Motor Deficits and Nonfocal/grossly intact
Psych: Calm
Laboratory Results
-
01/23/25 23:32
01/23/25 23:32
Laboratory Results
Total Bilirubin 0.4 mg/dl (0.2-1.3) 01/23/25 23:32
AST 19 U/L (17-59) 01/23/25 23:32
ALT 18 U/L (0-50) 01/23/25 23:32
Alkaline Phosphatase 93 U/L (38-126) 01/23/25 23:32
Data Reviewed
-
CT Scan: Report Reviewed by me
Lab Data: Labs Reviewed by me
Old Records: Reviewed
Impression/Plan
-
IMPRESSION:
64 y.o with recent complicated UTI status post lithotripsy and removal of obstructing left stone, status post 7 days of IV Zosyn in the hospital with discharged on cephalexin who now presents 2 days postdischarge with ongoing urinary symptoms
including frequency sense of incomplete voiding and some dysuria. UA remains markedly positive. Patient is afebrile and shows no signs of sepsis. CT scan of the abdomen pelvis reflecting possible cystitis which could be from infection or
radiation. There is a small focus of gas which is likely from his recent instrumentation.
PLAN:
UTI -suspect persistent UTI likely secondary to Proteus, no signs of sepsis at this time
- Admit to MedSurg
- Repeat urine cultures
- IV ceftriaxone daily for now for now
- Pain control with as needed Pyridium
- Blood cultures if spike fever
-Holding methenamine hippurate
- Monitor ins and outs
Atrial fibrillation -not a candidate to anticoagulate
-Continue metoprolol 50 mg
-No AC for now
Rest of plan continued as per home regimen
DVT prophylaxis�Lovenox subcu
CODE STATUS�full code
[2025-01-24 01:00] VITALS: BP 109/63
[2025-01-24] MEDS: MAXIPIME 2000 MG IV (01:19)
[2025-01-24] MEDS: NSS 1000 IV (01:19)
[2025-01-24] MEDS: DILAUDID 8 MG PO ×4 (03:24→22:34)
[2025-01-24 03:45] VITALS: BP 127/76
[2025-01-24 05:36] LABS: Hematocrit 32.1 % (39.0-52.0); Hemoglobin 9.9 g/dL (13.0-18.0); Mean Corp Hgb Conc. 30.8 g/dL (33.0-37.0); Mean Corpuscular Volume 90.2 fL (80.0-94.0); Platelet Count 405 10^3/uL (130-400); Red Cell Dist. Width 14.4 % (11.5-14.5)
[2025-01-24 05:55] LABS: Blood Urea Nitrogen 11 mg/dl (9-20); Calcium 8.2 mg/dl (8.4-10.2); Carbon Dioxide 29 mmol/L (22-30); Chloride 105 mmol/L (98-107); Glucose 93 mg/dl (70-99); Magnesium 1.6 mg/dl (1.6-2.3); Potassium 4.2 mmol/L (3.5-5.1); Sodium 138 mmol/L (135-145); eGFR > 60.00
[2025-01-24 07:20] VITALS: BP 101/66
[2025-01-24 08:06] LABS: Glucose - Point of Care 110 mg/dl (70-99)
--- NOTE | 2025-01-24 10:37 | WOUNDNOTE ---
RIGHT ABDOMINAL WOUND
--- NOTE | 2025-01-24 10:38 | WOUNDNOTE ---
[facility] RN NOTE: Patient known from 01/14 admission. Reviewed chart and met with patient. Patient has an extensive medical history and lives at home with caregivers. He is fully independent with ostomy that he has had for over 20 years (caregivers to
bring in supplies) and he currently has no ostomy needs or concerns. Abdominal wounds are from a graft sites approximately 10 years ago. Patient provides own wound care on his own schedule and would prefer to keep up his schedule while in the
hospital. TT with hospitalist and plan is for patient to continue own wound care and staff can help him with supplies as needed. See worklist for measurements and details of abdominal wounds. 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
from many years ago. The sacral/coccyx has been covered with 5 layer sacral border foam. No open areas noted. Fungal appearing skin noted on buttocks has resolved since last admission. He demonstrated good ability to turn in bed and stated
importance of off-loading. Spoke to RN Yolanda who plans on applying static air overlay during AM care. Will update care plan and follow as needed.
[2025-01-24] MEDS: TOPROL XL 50 MG PO (10:55)
[2025-01-24] MEDS: FEOSOL 325 MG PO (10:55)
[2025-01-24] MEDS: PEPCID 20 MG PO (10:55)
[2025-01-24] MEDS: NEURONTIN 800 MG PO ×2 (10:55→17:55)
[2025-01-24] MEDS: CYMBALTA DELAYED RELEASE 60 MG PO (10:56)
[2025-01-24] MEDS: ROCEPHIN 1000 MG IV (10:56)
[2025-01-24] MEDS: PROTONIX 40 MG PO (10:56)
[2025-01-24] MEDS: ZESTRIL 20 MG PO (10:56)
[2025-01-24] MEDS: STERILE WATER FOR INJECTION 10 ML IV (10:56)
[2025-01-24] MEDS: TYLENOL 650 MG PO (10:59)
[2025-01-24] MEDS: CYMBALTA DELAYED RELEASE 30 MG PO (11:00)
[2025-01-24] MEDS: ASPIR LOW (ENTERIC COATED) 81 MG PO (11:00)
[2025-01-24] MEDS: DULCOLAX 10 MG PO (11:00)
[2025-01-24] MEDS: COLACE 200 MG PO (11:00)
[2025-01-24] MEDS: SENOKOT 8.6 MG PO (11:00)
[2025-01-24] MEDS: REMOVE DURAGESIC PATCH 200 PATCH REMOVE ×2 (11:24→11:31)
--- NOTE | 2025-01-24 11:28 | PTCARENOTE ---
2 100mcg Fentanyl patches removed from patient's L upper arm. Patches wasted with Madeleine GRIJALVA as witness.
--- NOTE | 2025-01-24 11:35 | CONS.URO ---
Medical History
History of Present Illness
01/14/[address] Taylor: LEFT ureteroscopy, stone extraction; no ureteral stent was placed; radiation cystitis and bladder inflammation from Proteus UTI [possible E-V fistula] were noted.
was discharged on 01/21/25 with three days of bid 500 mg cephalexin
ED note from last night: 'Patient to ED with complaint of urinary frequency, dysuria. He was seen in ED last PM for pain in penis. Given rx for pyridium which resolved that issue. Returns today stating he is not emptying his bladder. Denies
fever/chills.'
Past Medical History
Past Medical History: Other (depression GERSON GERD HLD HTN BPH COPD vertigo anemia DVT CAD CHF colon ca chronic abdomen wound type 2 Dm)
Past Surgical History: Urological (01/14/2025 LEFT ureteroscopy, stone extraction --> uric acid) and Other (colon resection with ileostomy, umbilical hernia surgery, Colostomy hernia repair)
Allergies/Home Medications
Allergies
Allergy/AdvReac Type Severity Reaction Status Date / Time
No Known Allergies Allergy Verified 01/23/25 18:45
Home Medications
�Medication �Instructions �Recorded �Confirmed �Type
atorvastatin 40 mg tablet 40 mg PO HS High Cholesterol 07/02/16 01/14/25 History
multivitamin (One Daily 1 ea PO DAILY Supplement 07/02/16 01/14/25 History
Multivitamin tablet)
acetaminophen 325 mg tablet 650 mg PO DAILY Pain 05/23/23 01/14/25 History
cranberry fruit 450 mg tablet 1,000 mg PO DAILY Supplement 05/23/23 01/14/25 History
(cranberry)
cyanocobalamin (vitamin B-12) 1,000 mcg PO DAILY Supplement 05/23/23 01/14/25 History
1,000 mcg tablet (Vitamin B-12)
docusate sodium 100 mg capsule 200 mg PO DAILY Constipation 05/23/23 01/14/25 History
(Colace)
gabapentin 600 mg tablet 1,200 mg PO HS Neurological 05/23/23 01/14/25 History
Condition
gabapentin 800 mg tablet 800 mg PO BID@0800,1600 05/23/23 01/14/25 History
Neurological Condition
sennosides 8.6 mg tablet (senna) 8.6 mg PO DAILY Constipation 05/23/23 01/14/25 History
fentanyl 100 mcg/hr transdermal 200 mcg transdermal Q72H apply to 05/26/23 01/14/25 Rx
patch clean, dry, hairless area on body
#1 ea
prochlorperazine maleate 10 mg 10 mg PO Q8H PRN nausea and 05/26/23 01/14/25 Rx
tablet (Compazine) vomiting #10 tabs
Vitamin A And D Supple 1 dose PO DAILY Supplement 01/14/25 01/14/25 History
acetaminophen 325 mg tablet 650 mg PO Q6H PRN mild pain 01/14/25 01/14/25 History
(Tylenol)
ascorbic acid (vitamin C) 500 mg 1,000 mg PO DAILY Supplement 01/14/25 01/14/25 History
tablet (Vitamin C)
aspirin 81 mg tablet,delayed 81 mg PO DAILY Blood Clot 01/14/25 01/14/25 History
release Prevention/Tx
bisacodyl 5 mg tablet 10 mg PO DAILY Constipation 01/14/25 01/14/25 History
duloxetine 30 mg capsule,delayed 30 mg PO DAILY Mental 01/14/25 01/14/25 History
release Health/Anxiety
duloxetine 60 mg capsule,delayed 60 mg PO DAILY Mental 01/14/25 01/14/25 History
release Health/Anxiety
famotidine 20 mg tablet 20 mg PO DAILY Gastrointestinal 01/14/25 01/14/25 History
Issue
ferrous sulfate 325 mg (65 mg 325 mg PO DAILY Supplement 01/14/25 01/14/25 History
iron) tablet (iron)
hydromorphone 8 mg tablet 8 mg PO Q4HPRN PRN moderate/severe 01/14/25 01/14/25 History
pain
lisinopril 20 mg tablet 20 mg PO DAILY Blood Pressure 01/14/25 01/14/25 History
magnesium oxide 250 mg PO DAILY Supplement 01/14/25 01/14/25 History
methenamine hippurate 1 gram tablet 1 g PO BID Urinary Issue 01/14/25 01/14/25 History
omeprazole 20 mg capsule,delayed 20 mg PO DAILY Gastrointestinal 01/14/25 01/14/25 History
release Issue
ondansetron HCl 4 mg tablet 4 mg PO TIDPRN PRN nausea 01/14/25 01/14/25 History
polyethylene glycol 3350 17 gram 17 g PO DAILYPRN PRN constipation 01/14/25 01/14/25 History
oral powder packet (HealthyLax)
potassium 99 mg tablet 99 mg PO DAILY Supplement 01/14/25 01/14/25 History
vitamin E 670 mg (1,000 unit) 670 mg PO DAILY Supplement 01/14/25 01/14/25 History
capsule
vitamin K2 40 mcg tablet 8.6 mcg PO DAILY Supplement 01/14/25 01/14/25 History
cephalexin 500 mg capsule 500 mg PO BID Infection #6 caps 01/21/25 Rx
metoprolol succinate 50 mg 50 mg PO DAILY Blood pressure #30 01/21/25 Rx
tablet,extended release 24 hr tabs
phenazopyridine 200 mg tablet 200 mg PO TID PRN Pain #15 tabs 01/22/25 Rx
(Pyridium)
Physical Exam
Vital Signs
Vital Signs
Temp Pulse Resp BP Pulse Ox
97.9 F 81 14 101/66 95
01/24/25 07:20 01/24/25 07:20 01/24/25 07:20 01/24/25 07:20 01/24/25 07:20
Lab / Testing Results
Laboratory Results
01/24/25 04:39
01/24/25 04:39
Physical Exam
General: No Apparent Distress and Other (obese)
GI: Other (ileostomy)
Assessment / Plan
-
Persistent Irritative voiding sx: possibly under-treated Proteus UTI; known radiation cystitis
Rec: check PVR by bladder scan; continue to tx Proteus UTI
Data Reviewed
-
CT Scan: Image personally visualized and interpreted
Lab Data: Labs Reviewed
Old Records: Reviewed
[2025-01-24 11:43] LABS: Glucose - Point of Care 127 mg/dl (70-99)
--- NOTE | 2025-01-24 14:01 | W.PN.HOSP.TC ---
Addendum entered and electronically signed by Kristen Martinez MD 01/24/25 17:27:
I saw and evaluated the patient independently. I reviewed the resident�s note and agree with findings and plan as documented by Dr. Herrera.
GENERAL: well developed, well nourished, male in no apparent distress
HEENT: NC/AT
HEART: regular rate and rhythm, +S1, +S2
LUNGS : clear to auscultation bilaterally
ABDOM: soft, nontender, nondistended, + bowel sounds--ostomy
EXT: no cyanosis, clubbing--pedal edema
NEUROLOGIC: grossly intact
Complicated Proteus UTI with obstructing left ureterovesical junction stone--s/p cystoscopy, left Ureteroscopy/basket extraction of stone 01/15 by Urology--blood cultures neg--finished IV ABX and transitioned to oral keflex, pt stated he did not pick
it up until the day after discharge --presents back with penile shaft pain and hematuria--apprec urology--cont rocephin
Atrial flutter/afib-- permanent--apprec cards--poor candidate for systemic anticoagulation due to chronic mild active bleeding at his abdominal wound site/skin graft (which has been present for years)--rate control
Bowel enterocutaneous fistula anterior mid abdomen ruled out by surgery--Complicated by noted hx of chronic abdominal wound--apprec surgery--no intervention
Colorectal cancer status post colostomy and ileostomy
chronic diastolic CHF--no exacerbation--cont meds as able
essential HTN--cont meds as able
HLD--cont statin
NIDDM--Sliding scale insulin
Chronic back pain--continue with pain medications--follows with pain doctor
DVT proph
CODE STATUS--Full Code
Original Note:
Today's Communication/Plan
-
Level of care changed from Obs to inpatient
Urology consult for gross hematuria
IV cefepime
Assessment / Plan
Assessment / Plan
Mr. Jackson is a64 y.o with recent complicated UTI status post lithotripsy and removal of obstructing left stone, status post 7 days of IV Zosyn in the hospital with discharged on cephalexin who now presents 2 days postdischarge with ongoing urinary
symptoms including frequency sense of incomplete voiding and some dysuria. UA remains markedly positive. Patient is afebrile and shows no signs of sepsis. CT scan of the abdomen pelvis reflecting possible cystitis which could be from infection
or radiation. There is a small focus of gas which is likely from his recent instrumentation In the ED patient control was given IV ceftriaxone started under admitted to observation. The hospital the patient had hematuria and urology was
consulted. Patient was switched from ceftriaxone to IV cefepime.
#UTI
#nephrolith
#Gross hematuria
History of colorectal cancer treated with radiation
Urine cultures x2
Complicated h/o recurrent UTIs and kidney stones
CT AP: Obvious
2.7 mm right nephrolith. No evidence for obstruction, stranding around the bladder
Urology consult
IV cefepime
Consider ID consult
#Atrial flutter
has hx of atrial fibrillation
Cont metoprolol, now 50 mg daily, for rate control, continue at home
Pt is a poor candidate for systemic anticoagulation due to chronic mild active bleeding at his abdominal wound site/skin graft (which has been present for years).
#enterocutaneous wound anterior mid abdomen
Complicated by noted hx of chronic abdominal wound
wound consult
# Colorectal cancer status post colostomy and ileostomy
continue to monitor
Continue bowel regimen
Senna polyethylene glycol
Omeprazole
Mag oxide
Famotidine
Colace
Bisacodyl
# CHF
stable, preserved EF
continue medications
# HTN
cont home meds
Lisinopril
# Hypercholesterolemia
cont statin
# NIDDM,
Sliding scale insulin, low
Monitor blood glucose
# Chronic pain
continue with pain medications
Fentanyl patch
Gabapentin
Hydromorphone
DVT proph
SCD
CODE STATUS
Full Code
Anticipated Discharge: 24 - 48 hours
Subjective/Interval History
-
Patient was somnolent upon I arrived. He told me that after he was discharged he started to have pain in his penile area the next day. He was able to fill his medications including antibiotics at that time. The pain was relegated to the penile
area, and did not have pain on his flank. He did not experience fevers or chills nausea or vomiting. He went to the ED and got Pyridium which was not helpful, and thus return to the ED for more care. He reported increasing urinary urgency
frequency with small volumes and including pink and red urine. He reports that the pain is not the same type of pain that he had couple weeks ago that brought him to the hospital. Date of Service: January 24, 2025
Objective Data
-
Labs:
Laboratory Results
01/24/25
04:39
WBC 8.0
Hgb 9.9 L
Hct 32.1 L
Plt Count 405 H
Sodium 138
Potassium 4.2
Chloride 105
Carbon Dioxide 29
BUN 11
Creatinine 0.6 L
Glucose 93
Calcium 8.2 L
Vital Signs:
Vital Signs
Temp Pulse Resp BP Pulse Ox
97.9 F 81 14 101/66 95
01/24/25 07:20 01/24/25 07:20 01/24/25 07:20 01/24/25 07:20 01/24/25 07:20
I&O
01/23/25 01/24/25 01/25/25
06:59 06:59 06:59
Intake Total 0 / 0
Output Total 0 / 0
Balance 0 / 0
Review of Systems
-
History Source: Patient
Constitutional: Reports No Symptoms; Denies Fever or Chills
EENT: Reports No Symptoms Reported; Denies Sore Throat or Runny Nose
Respiratory: Reports No Symptoms; Denies Cough, Trouble Breathing or Wheezing
Cardiac: Reports No Symptoms; Denies Chest Pain or Palpitations
Genitourinary: Reports Dysuria, Frequency, Urgency and Bleeding; Denies Flank Pain
Musculoskeletal: Reports No Symptoms
Skin: Reports No Symptoms
Neuro: Reports No Symptoms; Denies Dizzy or Headache
Physical Exam
-
General: Well Developed and Well Nourished
HEENT: Normocephalic and Atraumatic
Respiratory: Clear to Auscultation; Negative Wheezes or Crackles
Cardiac: Regular Rhythm and S1/S2; Negative Murmur
GI: Soft, Nontender, Nondistended, Ostomy (Left abdomen) and Other (Abdominal wound right side)
Genito-urinary: Bloody Urine and Other (No erythema inflammation or discharge at the glans, skin retractable noninflamed)
Musculoskeletal: No Clubbing, No Cyanosis and No Edema
Skin: Warm and Dry
[2025-01-24 15:30] VITALS: BP 109/73
[2025-01-24 16:25] LABS: Glucose - Point of Care 118 mg/dl (70-99)
--- NOTE | 2025-01-24 17:26 | CM ---
Patient seen on with physicians. Patient states that he rents rooms in modular home, has 2 bedrooms and full BA, shares kitchen with jessenia. He is mostly in bed, does ambulate short distances with rolling walker, also uses wheelchair.
Needs assistance with ADLs and personal care. Patient has an aide m-f for 7.5 hours and sat /sun 6.5 hours from [facility].
Pt also has VN through [facility], per pt, therapy discharged him last week. Patient will need updated referral to [facility]. Patient was ordered hospital bed after last admission and it has yet to be delivered. Patient PCP is Washington Harrell and he uses
[facility] for narcotics, [facility] for all other meds. Patient current address is; address is [address], [place] [address]
CM will continue to follow for discharge planning needs.
Plan; home with [facility] and watch for hospital bed
[2025-01-24] MEDS: NOVOLOG FLEXPEN-LOW RESISTANCE SC (17:52)
[2025-01-24] MEDS: LOVENOX 40 MG SC (17:55)
[2025-01-24] MEDS: BENADRYL 25 MG IV (18:12)
[2025-01-24] MEDS: LIPITOR 40 MG PO (21:56)
[2025-01-24] MEDS: NEURONTIN 1200 MG PO (21:57)
[2025-01-24 22:07] LABS: Glucose - Point of Care 96 mg/dl (70-99)
[2025-01-24 23:18] VITALS: BP 101/60
[2025-01-25] MEDS: DILAUDID 8 MG PO ×4 (02:57→22:26)
[2025-01-25 08:38] VITALS: BP 98/52
[2025-01-25 08:45] LABS: Glucose - Point of Care 117 mg/dl (70-99)
[2025-01-25] MEDS: NOVOLOG FLEXPEN-LOW RESISTANCE SC ×2 (08:45→12:51)
[2025-01-25] MEDS: ASPIR LOW (ENTERIC COATED) 81 MG PO (08:47)
[2025-01-25] MEDS: PEPCID 20 MG PO (08:48)
[2025-01-25] MEDS: FEOSOL 325 MG PO (08:48)
[2025-01-25] MEDS: ROCEPHIN 1000 MG IV (08:48)
[2025-01-25] MEDS: NEURONTIN 800 MG PO ×2 (08:48→16:54)
[2025-01-25] MEDS: DULCOLAX 10 MG PO (08:48)
[2025-01-25] MEDS: COLACE 200 MG PO (08:48)
[2025-01-25] MEDS: SENOKOT 8.6 MG PO (08:48)
[2025-01-25] MEDS: TYLENOL 650 MG PO ×2 (08:48→22:24)
[2025-01-25] MEDS: CYMBALTA DELAYED RELEASE 60 MG PO (08:48)
[2025-01-25] MEDS: CYMBALTA DELAYED RELEASE 30 MG PO (08:48)
[2025-01-25] MEDS: PROTONIX 40 MG PO (08:48)
[2025-01-25] MEDS: STERILE WATER FOR INJECTION 10 ML IV (08:49)
--- NOTE | 2025-01-25 08:59 | CM ---
Addendum entered by Janeth Morley 01/25/25 10:07:
Ordered was placed for bariatric hospital bed.
Original Note:
Call placed to [facility] regarding replacing a bed for patient, spoke with Jessica answering service for [facility] and she will get a message to [facility] and check on status of hospital bed delivery for patient.
Plan; Home with [facility].
Rosie
[phone]
[2025-01-25 09:24] LABS: Glucose - Point of Care 108 mg/dl (70-99)
[2025-01-25 10:02] LABS: Hematocrit 33.1 % (39.0-52.0); Hemoglobin 10.4 g/dL (13.0-18.0); Mean Corp Hgb Conc. 31.4 g/dL (33.0-37.0); Mean Corpuscular Volume 91.4 fL (80.0-94.0); Platelet Count 423 10^3/uL (130-400); Red Cell Dist. Width 14.2 % (11.5-14.5)
[2025-01-25 10:23] LABS: Blood Urea Nitrogen 11 mg/dl (9-20); Calcium 8.8 mg/dl (8.4-10.2); Carbon Dioxide 33 mmol/L (22-30); Chloride 100 mmol/L (98-107); Estimated Creatinine Clearance 118 ml/min; Glucose 99 mg/dl (70-99); Potassium 4.6 mmol/L (3.5-5.1); Sodium 137 mmol/L (135-145); eGFR > 60.00
[2025-01-25] MEDS: TOPROL XL 50 MG PO (10:48)
[2025-01-25] MEDS: ZESTRIL PO (12:47)
[2025-01-25 12:52] LABS: Glucose - Point of Care 96 mg/dl (70-99)
--- NOTE | 2025-01-25 15:07 | W.PN.HOSP.TC ---
Addendum entered and electronically signed by Kristne Martinez MD 01/25/25 16:22:
I saw and evaluated the patient independently. I reviewed the resident�s note and agree with findings and plan as documented by Dr. Herrera.
GENERAL: well developed, well nourished, male in no apparent distress
HEENT: NC/AT
HEART: regular rate and rhythm, +S1, +S2
LUNGS : clear to auscultation bilaterally
ABDOM: soft, nontender, nondistended, + bowel sounds--ostomy
EXT: no cyanosis, clubbing--pedal edema
NEUROLOGIC: grossly intact
Complicated Proteus UTI with obstructing left ureterovesical junction stone--s/p cystoscopy, left Ureteroscopy/basket extraction of stone 01/15 by Urology--blood cultures neg--finished IV ABX and transitioned to oral keflex, pt stated he did not pick
it up until the day after discharge --presents back with penile shaft pain and hematuria--apprec urology--cont rocephin for today and consider changing to oral ABX in AM--urine culture now negative
Atrial flutter/afib-- permanent--apprec cards--poor candidate for systemic anticoagulation due to chronic mild active bleeding at his abdominal wound site/skin graft (which has been present for years)--rate control
Bowel enterocutaneous fistula anterior mid abdomen ruled out by surgery--Complicated by noted hx of chronic abdominal wound--apprec surgery--no intervention
Colorectal cancer status post colostomy and ileostomy
chronic diastolic CHF--no exacerbation--cont meds as able
essential HTN--cont meds as able
HLD--cont statin
NIDDM--Sliding scale insulin
Chronic back pain--continue with pain medications--follows with pain doctor
DVT proph
CODE STATUS--Full Code
Original Note:
Today's Communication/Plan
-
Continue IV antibiotics
Assessment / Plan
Assessment / Plan
Mr. Jackson is a64 y.o with recent complicated UTI status post lithotripsy and removal of obstructing left stone, status post 7 days of IV Zosyn in the hospital with discharged on cephalexin who now presents 2 days postdischarge with ongoing urinary
symptoms including frequency sense of incomplete voiding and some dysuria. UA remains markedly positive. Patient is afebrile and shows no signs of sepsis. CT scan of the abdomen pelvis reflecting possible cystitis which could be from infection
or radiation. There is a small focus of gas which is likely from his recent instrumentation In the ED patient control was given IV ceftriaxone started under admitted to observation. The hospital the patient had hematuria and urology was consulted
who thinks it was undertreatment of her previous Proteus UTI recommended continuation of antibiotic treatment. On 01/25 patient was feeling slightly better and had 1 episode of hematuria, began to pee more clearly.
#UTI
#Gross hematuria
# Radiation cystitis
History of colorectal cancer treated with radiation
Urine cultures x2
Complicated h/o recurrent UTIs and kidney stones
CT AP: 2.7 mm right nephrolith. No evidence for obstruction, stranding around the bladder
Urology consult
Possible undertreatment of previous UTI with known radiation cystitis
Check PVRs by bladder scan
Continue Proteus treatment
Continue IV ceftriaxone
Consider ID consult
#Atrial flutter
has hx of atrial fibrillation
Cont metoprolol, now 50 mg daily, for rate control, continue at home
Pt is a poor candidate for systemic anticoagulation due to chronic mild active bleeding at his abdominal wound site/skin graft (which has been present for years).
#enterocutaneous wound anterior mid abdomen
Complicated by noted hx of chronic abdominal wound
wound consult
# Colorectal cancer status post colostomy and ileostomy
continue to monitor
Continue bowel regimen
Senna polyethylene glycol
Omeprazole
Mag oxide
Famotidine
Colace
Bisacodyl
# CHF
stable, preserved EF
continue medications
# HTN
cont home meds
Lisinopril
# Hypercholesterolemia
cont statin
# NIDDM,
Sliding scale insulin, low
Monitor blood glucose
# Chronic pain
continue with pain medications
Fentanyl patch
Gabapentin
Hydromorphone
Benadryl for fentanyl patch rash
DVT proph
SCD
CODE STATUS
Full Code
Anticipated Discharge: 24 - 48 hours
Subjective/Interval History
-
Patient reports doing better today. Had 1 episode of hematuria earlier today. Has been peeing clear today. Penile pain is better. No other complaints. Date of Service: January 25, 2025
Objective Data
-
Labs:
Laboratory Results
01/25/25
09:53
WBC 10.3
Hgb 10.4 L
Hct 33.1 L
Plt Count 423 H
Sodium 137
Potassium 4.6
Chloride 100
Carbon Dioxide 33 H
BUN 11
Creatinine 0.8
Glucose 99
Calcium 8.8
Vital Signs:
Vital Signs
Temp Pulse Resp BP Pulse Ox
100.0 F 104 16 107/62 94
01/25/25 08:38 01/25/25 10:48 01/25/25 08:38 01/25/25 10:48 01/25/25 08:38
I&O
01/24/25 01/25/25 01/26/25
06:59 06:59 06:59
Intake Total 0 / 0 1300 / 1300
Output Total 0 / 0 1750 / 1750
Balance 0 / 0 -450 / -450
Review of Systems
-
History Source: Patient
Constitutional: Reports No Symptoms; Denies Fever, Fatigue or Chills
EENT: Reports No Symptoms Reported; Denies Sore Throat or Runny Nose
Respiratory: Reports No Symptoms; Denies Cough, Trouble Breathing or Wheezing
Cardiac: Reports No Symptoms; Denies Chest Pain or Diaphoresis
Abdomen/GI: Reports No Symptoms; Denies Abdominal Pain, Nausea, Vomiting or Diarrhea
Genitourinary: Reports Other (Penile pain, bloody urine)
Musculoskeletal: Reports No Symptoms
Skin: Reports Itching; Denies Rash
Neuro: Reports No Symptoms; Denies Dizzy, Headache or Weakness
Physical Exam
-
General: Well Developed, Well Nourished, No Apparent Distress and Obese
HEENT: Normocephalic and Atraumatic
Respiratory: Clear to Auscultation; Negative Wheezes, Rales or Crackles
Cardiac: Regular Rhythm and S1/S2; Negative Murmur or Rub
GI: Soft, Nontender, Nondistended, Normal Bowel Sounds, Ostomy and Other (Wound right abdomen)
Musculoskeletal: No Clubbing and No Cyanosis
Skin: Warm and Dry; Negative Rash
Neuro: Awake, Alert and Oriented
[2025-01-25 15:26] VITALS: BP 111/67
[2025-01-25 16:44] LABS: Glucose - Point of Care 169 mg/dl (70-99)
[2025-01-25] MEDS: LOVENOX 40 MG SC (17:47)
[2025-01-25] MEDS: NOVOLOG FLEXPEN-LOW RESISTANCE 1 UNITS SC (17:50)
[2025-01-25] MEDS: NEURONTIN 1200 MG PO (22:13)
[2025-01-25] MEDS: LIPITOR 40 MG PO (22:13)
[2025-01-25 22:20] LABS: Glucose - Point of Care 108 mg/dl (70-99)
[2025-01-25 23:07] VITALS: BP 113/80
[2025-01-26] MEDS: TYLENOL 650 MG PO ×2 (04:59→09:34)
[2025-01-26] MEDS: DILAUDID 8 MG PO ×2 (04:59→09:37)
[2025-01-26 08:00] VITALS: BP 92/58
--- NOTE | 2025-01-26 08:37 | W.PN.URO.CBU ---
Today's Communication / Plan
-
tx UTI
will sign off
Assessment / Plan
-
Irritative voiding sx: under-treated Proteus UTI; known radiation cystitis
Diagnosis
-
Date of Service: January 26, 2025
-
Patient Diagnosis:
Irritative voiding sx: possibly under-treated Proteus UTI; known radiation cystitis
Objective
-
Vital Signs
Temp Pulse Resp BP Pulse Ox
98.2 F 88 18 113/80 95
01/25/25 23:07 01/25/25 23:07 01/25/25 23:07 01/25/25 23:07 01/25/25 23:07
Intake and Output
01/25/25 01/26/25 01/27/25
06:59 06:59 06:59
Intake Total 1300 / 1300 1200 / 1200
Output Total 1750 / 1750 2750 / 2750
Balance -450 / -450 -1550 / -1550
Intake:
Oral fluids 1300 / 1300 1200 / 1200
Output:
Urine, Voided 1750 / 1750 2750 / 2750
Bladder scan yesterday: 31 ml
Physical Exam
-
General - well developed, well nourished, no acute distress
Chest - clear bilaterally
Abdomen - soft, non-tender, positive bowel sounds, no CVAT, no incisional pain or distention
Genitalia - normal
Rectal - normal
Skin - warm & dry with no rash
Neuro - AOx3, no motor deficits
Extremities - no clubbing, no cyanosis, no edema
Incision - clean, dry
Dressing - clean, dry, intact
[2025-01-26 08:42] LABS: Glucose - Point of Care 97 mg/dl (70-99)
[2025-01-26] MEDS: NOVOLOG FLEXPEN-LOW RESISTANCE SC ×3 (08:59→17:29)
[2025-01-26 09:24] LABS: Hematocrit 33.6 % (39.0-52.0); Hemoglobin 10.7 g/dL (13.0-18.0); Mean Corp Hgb Conc. 31.8 g/dL (33.0-37.0); Mean Corpuscular Volume 88.9 fL (80.0-94.0); Platelet Count 420 10^3/uL (130-400); Red Cell Dist. Width 14.1 % (11.5-14.5)
[2025-01-26] MEDS: CYMBALTA DELAYED RELEASE 30 MG PO (09:31)
[2025-01-26] MEDS: CYMBALTA DELAYED RELEASE 60 MG PO (09:31)
[2025-01-26] MEDS: PROTONIX 40 MG PO (09:31)
[2025-01-26] MEDS: NEURONTIN 800 MG PO ×2 (09:31→18:03)
[2025-01-26] MEDS: DULCOLAX 10 MG PO (09:32)
[2025-01-26] MEDS: COLACE 200 MG PO (09:32)
[2025-01-26] MEDS: ZESTRIL 20 MG PO (09:32)
[2025-01-26] MEDS: FEOSOL 325 MG PO (09:33)
[2025-01-26] MEDS: SENOKOT 8.6 MG PO (09:35)
[2025-01-26] MEDS: TOPROL XL 50 MG PO (09:35)
[2025-01-26] MEDS: PEPCID 20 MG PO (09:36)
[2025-01-26] MEDS: ASPIR LOW (ENTERIC COATED) 81 MG PO (09:37)
[2025-01-26 09:38] LABS: Blood Urea Nitrogen 11 mg/dl (9-20); Calcium 8.7 mg/dl (8.4-10.2); Carbon Dioxide 31 mmol/L (22-30); Chloride 101 mmol/L (98-107); Estimated Creatinine Clearance > 125 ml/min; Glucose 101 mg/dl (70-99); Potassium 4.6 mmol/L (3.5-5.1); Sodium 138 mmol/L (135-145); eGFR > 60.00
[2025-01-26] MEDS: STERILE WATER FOR INJECTION 10 ML IV (09:38)
[2025-01-26] MEDS: ROCEPHIN 1000 MG IV (09:38)
--- NOTE | 2025-01-26 11:36 | W.PN.HOSP.TC ---
Addendum entered and electronically signed by Kristen Martinez MD 01/26/25 17:36:
I saw and evaluated the patient independently. I reviewed the resident�s note and agree with findings and plan as documented by Dr. Herrera.
GENERAL: well developed, well nourished, male in no apparent distress
HEENT: NC/AT
HEART: regular rate and rhythm, +S1, +S2
LUNGS : clear to auscultation bilaterally
ABDOM: soft, nontender, nondistended, + bowel sounds--ostomy
EXT: no cyanosis, clubbing--pedal edema
NEUROLOGIC: grossly intact
Complicated Proteus UTI with obstructing left ureterovesical junction stone--s/p cystoscopy, left Ureteroscopy/basket extraction of stone 01/15 by Urology--blood cultures neg--finished IV ABX and transitioned to oral keflex, pt stated he did not pick
it up until the day after discharge --presents back with penile shaft pain and hematuria, suspect due to radiation cystitis--apprec urology--cont rocephin for today and consider changing to oral ABX in AM--urine culture now negative
Atrial flutter/afib-- permanent--apprec cards--poor candidate for systemic anticoagulation due to chronic mild active bleeding at his abdominal wound site/skin graft (which has been present for years)--rate control
Bowel enterocutaneous fistula anterior mid abdomen ruled out by surgery--Complicated by noted hx of chronic abdominal wound--apprec surgery--no intervention
Colorectal cancer status post colostomy and ileostomy
chronic diastolic CHF--no exacerbation--cont meds as able
essential HTN--cont meds as able
HLD--cont statin
NIDDM--Sliding scale insulin
Chronic back pain--continue with pain medications--follows with pain doctor
DVT proph
CODE STATUS--Full Code
Original Note:
Today's Communication/Plan
-
Patient's pain improving
urology signed off
If no hematuria consider discharge 7/21 11 AM
Assessment / Plan
Assessment / Plan
Mr. Jackson is a 64 y.o with recent complicated UTI status post lithotripsy and removal of obstructing left stone, status post 7 days of IV Zosyn in the hospital with discharged on cephalexin who now presents 2 days postdischarge with ongoing
urinary symptoms including frequency sense of incomplete voiding and some dysuria. UA remains markedly positive. Patient is afebrile and shows no signs of sepsis. CT scan of the abdomen pelvis reflecting possible cystitis which could be from
infection or radiation. There is a small focus of gas which is likely from his recent instrumentation In the ED patient control was given IV ceftriaxone started under admitted to observation. The hospital the patient had hematuria and urology was
consulted who thinks it was undertreatment of her previous Proteus UTI recommended continuation of antibiotic treatment. On 01/25 patient was feeling slightly better and had 1 episode of hematuria, began to pee more clearly. 01/26 patient is still
without hematuria decreasing penile pain. Urology signed off.
#UTI
#Gross hematuria
# Radiation cystitis
History of colorectal cancer treated with radiation
Known history of radiation cystitis
Urine cultures x2
Complicated h/o recurrent UTIs and kidney stones
CT AP: 2.7 mm right nephrolith.
-Continue IV ceftriaxone
-Consider ID consult
#Atrial flutter
has hx of atrial fibrillation
-Cont metoprolol, now 50 mg daily, for rate control, continue at home
-Pt is a poor candidate for systemic anticoagulation due to chronic mild active bleeding at his abdominal wound site/skin graft (which has been present for years).
#enterocutaneous wound anterior mid abdomen
-Complicated by noted hx of chronic abdominal wound
-wound consult
# Colorectal cancer status post colostomy and ileostomy
continue to monitor
Continue bowel regimen
Senna polyethylene glycol
Omeprazole
Mag oxide
Famotidine
Colace
Bisacodyl
# CHF
stable, preserved EF
continue medications
# HTN
cont home meds
Lisinopril
# Hypercholesterolemia
cont statin
# NIDDM,
Sliding scale insulin, low
Monitor blood glucose
# Chronic pain
continue with pain medications
Fentanyl patch
Gabapentin
Hydromorphone
Benadryl for fentanyl patch rash
DVT proph
SCDs
CODE STATUS
Full Code
Anticipated Discharge: Within 24 hours
Subjective/Interval History
-
Patient reported feeling better, with decreasing penile pain which is still there. No hematuria today. Talked with patient and explained that this may be due to radiation cystitis, unlikely to be prostate cancer which patient had feared. Advised
patient to follow-up outpatient with urologist to address concerns about prostate cancer. Patient had no other complaints. Date of Service: January 26, 2025
Objective Data
-
Labs:
Laboratory Results
01/26/25
08:43
WBC 10.2
Hgb 10.7 L
Hct 33.6 L
Plt Count 420 H
Sodium 138
Potassium 4.6
Chloride 101
Carbon Dioxide 31 H
BUN 11
Creatinine 0.7
Glucose 101 H
Calcium 8.7
Vital Signs:
Vital Signs
Temp Pulse Resp BP Pulse Ox
98.2 F 77 19 102/65 97
01/26/25 08:00 01/26/25 09:35 01/26/25 08:00 01/26/25 09:35 01/26/25 08:00
I&O
01/25/25 01/26/25 01/27/25
06:59 06:59 06:59
Intake Total 1300 / 1300 1200 / 1200
Output Total 1750 / 1750 2750 / 2750
Balance -450 / -450 -1550 / -1550
Review of Systems
-
History Source: Patient
Constitutional: Reports No Symptoms; Denies Fever or Fatigue
EENT: Reports No Symptoms Reported; Denies Tearing or Runny Nose
Respiratory: Reports No Symptoms; Denies Cough or Trouble Breathing
Cardiac: Reports No Symptoms; Denies Chest Pain or Palpitations
Abdomen/GI: Reports No Symptoms; Denies Abdominal Pain, Nausea or Vomiting
Genitourinary: Reports Other (Penile pain)
Musculoskeletal: Reports No Symptoms; Denies Joint Pain
Skin: Reports No Symptoms; Denies Itching
Neuro: Reports No Symptoms; Denies Dizzy or Headache
Physical Exam
-
General: Well Developed, Well Nourished, No Apparent Distress and Obese
HEENT: Normocephalic and Atraumatic
Respiratory: Clear to Auscultation; Negative Wheezes or Crackles
Cardiac: Regular Rhythm and S1/S2; Negative Murmur or Rub
GI: Soft, Nontender, Nondistended, Normal Bowel Sounds, Ostomy and Other (wound)
Genito-urinary: Clear Urine; Negative Turbid Urine, Bloody Urine or Gonzalez
Musculoskeletal: No Clubbing, No Cyanosis and No Edema; Negative Edema, Right Lower Extrem or Edema, Left Lower Extrem
Skin: Warm and Dry
Neuro: Awake, Alert and Oriented
Psych: Calm
[2025-01-26 12:28] LABS: Glucose - Point of Care 111 mg/dl (70-99)
[2025-01-26 15:00] VITALS: BP 85/61
[2025-01-26 16:17] LABS: Glucose - Point of Care 146 mg/dl (70-99)
[2025-01-26 17:41] VITALS: BP 107/90
[2025-01-26] MEDS: LOVENOX 40 MG SC (18:03)
[2025-01-26 21:21] LABS: Glucose - Point of Care 141 mg/dl (70-99)
[2025-01-26] MEDS: LIPITOR 40 MG PO (21:48)
[2025-01-26] MEDS: NEURONTIN 1200 MG PO (21:48)
[2025-01-26 23:00] VITALS: BP 102/78
[2025-01-27] MEDS: DILAUDID 8 MG PO ×2 (01:20→10:39)
[2025-01-27] MEDS: TYLENOL 650 MG PO ×2 (01:52→10:42)
[2025-01-27 05:06] LABS: Hematocrit 32.7 % (39.0-52.0); Hemoglobin 10.5 g/dL (13.0-18.0); Mean Corp Hgb Conc. 32.1 g/dL (33.0-37.0); Mean Corpuscular Volume 89.1 fL (80.0-94.0); Platelet Count 394 10^3/uL (130-400); Red Cell Dist. Width 14.2 % (11.5-14.5)
[2025-01-27 05:32] LABS: Blood Urea Nitrogen 13 mg/dl (9-20); Calcium 8.7 mg/dl (8.4-10.2); Carbon Dioxide 29 mmol/L (22-30); Chloride 101 mmol/L (98-107); Estimated Creatinine Clearance > 125 ml/min; Glucose 113 mg/dl (70-99); Potassium 4.3 mmol/L (3.5-5.1); Sodium 136 mmol/L (135-145); eGFR > 60.00
[2025-01-27 08:11] VITALS: BP 125/67
[2025-01-27 08:33] LABS: Glucose - Point of Care 106 mg/dl (70-99)
[2025-01-27] MEDS: NOVOLOG FLEXPEN-LOW RESISTANCE SC ×2 (08:37→12:22)
--- NOTE | 2025-01-27 09:09 | W.PN.HOSP.TC ---
Today's Communication/Plan
-
Patient medically stable for discharge
Transition to p.o. antibiotics
Assessment / Plan
Assessment / Plan
Mr. Jackson is a 64 y.o with recent complicated UTI status post lithotripsy and removal of obstructing left stone, status post 7 days of IV Zosyn in the hospital with discharged on cephalexin who now presents 2 days postdischarge with ongoing
urinary symptoms including frequency sense of incomplete voiding and some dysuria. UA remains markedly positive. Patient is afebrile and shows no signs of sepsis. CT scan of the abdomen pelvis reflecting possible cystitis which could be from
infection or radiation. There is a small focus of gas which is likely from his recent instrumentation In the ED patient control was given IV ceftriaxone started under admitted to observation. The hospital the patient had hematuria and urology was
consulted who thinks it was undertreatment of her previous Proteus UTI recommended continuation of antibiotic treatment. On 01/25 patient was feeling slightly better and had 1 episode of hematuria, began to pee more clearly. 01/26 patient is still
without hematuria decreasing penile pain. Urology signed off.
#UTI
#Gross hematuria
# Radiation cystitis
History of colorectal cancer treated with radiation
Known history of radiation cystitis
Urine cultures x2
Complicated h/o recurrent UTIs and kidney stones
CT AP: 2.7 mm right nephrolith.
-Continue IV ceftriaxone
- Transition to p.o. antibiotics at discharge
#Atrial flutter
has hx of atrial fibrillation
-Cont metoprolol, now 50 mg daily, for rate control, continue at home
-Pt is a poor candidate for systemic anticoagulation due to chronic mild active bleeding at his abdominal wound site/skin graft (which has been present for years).
#enterocutaneous wound anterior mid abdomen
-Complicated by noted hx of chronic abdominal wound
-wound consult
# Colorectal cancer status post colostomy and ileostomy
continue to monitor
Continue bowel regimen
Senna polyethylene glycol
Omeprazole
Mag oxide
Famotidine
Colace
Bisacodyl
# CHF
stable, preserved EF
continue medications
# HTN
cont home meds
Lisinopril
# Hypercholesterolemia
cont statin
# NIDDM,
Sliding scale insulin, low
Monitor blood glucose
# Chronic pain
continue with pain medications
Fentanyl patch
Gabapentin
Hydromorphone
Benadryl for fentanyl patch rash
DVT proph
SCDs
CODE STATUS
Full Code
Anticipated Discharge: Today
Subjective/Interval History
-
Patient is doing well. He reported no bloody urine yesterday or this morning. Still reports some penile pain but reports that it has been getting better. He otherwise has no other complaints. Date of Service: January 27, 2025
Objective Data
-
Labs:
Laboratory Results
01/27/25
04:46
WBC 10.6
Hgb 10.5 L
Hct 32.7 L
Plt Count 394
Sodium 136
Potassium 4.3
Chloride 101
Carbon Dioxide 29
BUN 13
Creatinine 0.7
Glucose 113 H
Calcium 8.7
Vital Signs:
Vital Signs
Temp Pulse Resp BP Pulse Ox
98.0 F 74 14 125/67 97
01/27/25 08:11 01/27/25 08:11 01/27/25 08:11 01/27/25 08:11 01/27/25 08:11
I&O
01/26/25 01/27/25 01/28/25
06:59 06:59 06:59
Intake Total 1200 / 1200 960 / 960
Output Total 2750 / 2750 875 / 875
Balance -1550 / -1550 85 / 85
Review of Systems
-
History Source: Patient
All other systems: Reviewed and negative
Constitutional: Denies Fever or Fatigue
EENT: Reports No Symptoms Reported; Denies Sore Throat or Runny Nose
Respiratory: Reports No Symptoms; Denies Cough, Trouble Breathing or Wheezing
Cardiac: Reports No Symptoms; Denies Chest Pain
Abdomen/GI: Reports No Symptoms; Denies Abdominal Pain, Nausea, Vomiting or Diarrhea
Genitourinary: Reports Other (Penile pain); Denies Dysuria or Frequency
Musculoskeletal: Reports No Symptoms
Skin: Reports No Symptoms; Denies Itching
Neuro: Reports No Symptoms; Denies Dizzy or Headache
Physical Exam
-
General: Well Developed, Well Nourished, No Apparent Distress and Obese
HEENT: Normocephalic and Atraumatic
Respiratory: Clear to Auscultation and Non Labored Respirations; Negative Wheezes or Crackles
Cardiac: Regular Rhythm and S1/S2; Negative Murmur or Rub
Breast: Deferred by me
GI: Soft, Nontender, Nondistended and Normal Bowel Sounds
Musculoskeletal: No Clubbing, No Cyanosis and No Edema
Skin: Warm and Dry; Negative Rash
Neuro: Awake, Alert and Oriented
[2025-01-27] MEDS: PROTONIX 40 MG PO (10:38)
[2025-01-27] MEDS: PEPCID 20 MG PO (10:39)
[2025-01-27] MEDS: FEOSOL 325 MG PO (10:39)
[2025-01-27] MEDS: ZESTRIL 20 MG PO (10:41)
[2025-01-27] MEDS: DULCOLAX 10 MG PO (10:42)
[2025-01-27] MEDS: COLACE 200 MG PO (10:43)
[2025-01-27] MEDS: ASPIR LOW (ENTERIC COATED) 81 MG PO (10:44)
[2025-01-27] MEDS: NEURONTIN 800 MG PO (10:44)
[2025-01-27] MEDS: CYMBALTA DELAYED RELEASE 60 MG PO (10:44)
[2025-01-27] MEDS: SENOKOT 8.6 MG PO (10:45)
[2025-01-27] MEDS: CYMBALTA DELAYED RELEASE 30 MG PO (10:45)
[2025-01-27] MEDS: TOPROL XL 50 MG PO (10:45)
[2025-01-27] MEDS: ROCEPHIN 1000 MG IV (10:46)
[2025-01-27] MEDS: STERILE WATER FOR INJECTION 10 ML IV (10:46)
[2025-01-27 11:22] LABS: Glucose - Point of Care 132 mg/dl (70-99)
--- NOTE | 2025-01-27 11:40 | CM ---
Addendum entered by Katharine Ojeda 01/27/25 11:45:
Patient scheduled for 2:30 p.m. ambulance transport
Original Note:
CM reviewed chart, patient seen bedside, for discharge today. Patient reports his caregiver will be present when patient is discharged, ramp to enter home, no steps. Patient will require ambulance transport home. IMM verbally reviewed, provided with
copy, placed in chart. CM will continue to follow for all discharge planning needs.
Plan; home with caregiver, Rosie JAMES
Rosie
--- NOTE | 2025-01-27 12:07 | W.DCSUMMARY ---
Documented by User: Roni Herrera MD, Resident 01/27/25 12:30
Discharge Summary
Discharge Data
Date of Admission: 01/24/25
Date of Discharge: 01/27/25
-
Pending Results: No
Hospital Course
Discharging Physician : Dr. Arita, Dr. Herrera
Disposition : Home
Primary care physician : Washington Harrell DO
Principal Discharge diagnosis : UTI, radiation cystitis
Chronic Discharge diagnosis :
depression
GERSON
GERD
HLD
HTN
BPH
COPD
vertigo
anemia
DVT
CAD
CHF
colon ca
chronic abdomen wound
type 2 Dm
Hospital Course :
Mr. Jackson is a 64 y.o with recent complicated UTI status post lithotripsy and removal of obstructing left stone, status post 7 days of IV Zosyn in the hospital with past medical history significant for chronic UTI, radiation cystitis, colon cancer
status post bowel resection, ileostomy, multiple abdominal surgeries, CHF, hypertension, hyperlipidemia, diabetes, chronic pain on oral Dilaudid and high doses of fentanyl patches (managed by pain specialist for 20 years) discharged on cephalexin
who now presents 2 days postdischarge with ongoing urinary symptoms including frequency sense of incomplete voiding and some dysuria. UA remains markedly positive. Patient is afebrile and shows no signs of sepsis. CT scan of the abdomen pelvis
reflecting possible cystitis which could be from infection or radiation. There is a small focus of gas which is likely from his recent instrumentation. In the ED patient control was given IV ceftriaxone started under admitted to observation. In
the hospital the patient had a couple episodes of hematuria and urology was consulted who thinks it was undertreatment of her previous Proteus UTI recommended continuation of antibiotic treatment. Urine culture came back negative. On 01/25 patient
was feeling slightly better and had 1 episode of hematuria, began to pee more clearly. 01/26 patient is still without hematuria decreasing penile pain. Urology signed off. Patient given cefdinir for 14-day course. Upon discharge patient was
afebrile with stable vital signs. Labs were within normal limits. Patient was medically stable for discharge.
Important imaging findings :
01/22 abdominal x-ray
IMPRESSION:
No radiographic evidence of renal calculus.
01/[address]
IMPRESSION:
There is new stranding along the anterior aspect of the urinary bladder which is likely secondary to cystitis. There is a small focus of gas within the urinary bladder anteriorly which may be secondary to recent instrumentation. Recommend
correlation with urinalysis. There is mild asymmetric stranding along the left kidney which is unchanged from prior examination.
2.7 mm nonobstructing calculus within the lower pole of the right kidney.
Unchanged large anterior abdominal wall hernia with subcutaneous stranding along the right inferolateral aspect.
Small right and trace left pleural effusions with adjacent atelectasis.
Procedure findings :
01/23 urine culture
No growth at 6 days
Discharge Plan
-
Patient Disposition: Home (Routine Discharge)
Discharge Diagnosis/Procedures: Urinary tract infection, radiation cystitis
Condition: Good
Diet: As tolerated
Activity: With assistance and As tolerated
Driving Restrictions: As prior to admission
Bathing Restrictions: None
Other Services: VN
Referrals:
Washington Harrell DO [Family Provider, Family Practice] - in less than 1 week
Shaw Taylor MD [Active, Urology]
Referral Note: call for appointment in 2-4 weeks
Prescriptions:
New
cefdinir 300 mg capsule
300 mg PO BID Qty: 28 0RF
Continued
multivitamin [One Daily Multivitamin] 1 EACH tablet
1 ea PO DAILY
atorvastatin 40 MG tablet
40 mg PO HS
gabapentin 800 mg Tablet
800 mg PO BID@0800,1600
sennosides [senna] 8.6 mg Tablet
8.6 mg PO DAILY
acetaminophen 325 mg Tablet
650 mg PO DAILY
docusate sodium [Colace] 100 mg Capsule
200 mg PO DAILY
cyanocobalamin (vitamin B-12) [Vitamin B-12] 1,000 mcg Tablet
1,000 mcg PO DAILY
gabapentin 600 mg Tablet
1,200 mg PO HS
cranberry 450 mg Tablet
1,000 mg PO DAILY
prochlorperazine maleate [Compazine] 10 mg tablet
10 mg PO Q8H PRN (Reason: nausea and vomiting) Qty: 10 0RF
fentanyl 100 MCG patch 72 hour
200 mcg transdermal Q72H Qty: 1 0RF
Rx Instructions:
01/14/25: last applied 2 patches 01/12/25
lisinopril 20 mg tablet
20 mg PO DAILY
ondansetron HCl 4 mg tablet
4 mg PO TIDPRN PRN (Reason: nausea)
methenamine hippurate 1 gram tablet
1 g PO BID
famotidine 20 mg tablet
20 mg PO DAILY
ascorbic acid (vitamin C) [Vitamin C] 500 mg tablet
1,000 mg PO DAILY
duloxetine 30 mg capsule,delayed release(DR/EC)
30 mg PO DAILY
duloxetine 60 mg capsule,delayed release(DR/EC)
60 mg PO DAILY
hydromorphone 8 mg tablet
8 mg PO Q4HPRN PRN (Reason: moderate/severe pain)
vitamin E 670 mg (1,000 unit) Capsule
670 mg PO DAILY
acetaminophen [Tylenol] 325 mg Tablet
650 mg PO Q6H PRN (Reason: mild pain)
aspirin 81 mg Tablet,Delayed Release (Dr/Ec)
81 mg PO DAILY
potassium 99 mg Tablet
99 mg PO DAILY
omeprazole 20 mg Capsule,Delayed Release(Dr/Ec)
20 mg PO DAILY
magnesium oxide 250 mg magnesium Tablet
250 mg PO DAILY
bisacodyl 5 mg Tablet
10 mg PO DAILY
vitamin K2 40 mcg Tablet
8.6 mcg PO DAILY
Vitamin A And D Supple
1 dose PO DAILY
polyethylene glycol 3350 [HealthyLax] 17 gram powder in packet
17 g PO DAILYPRN PRN (Reason: constipation)
ferrous sulfate [iron] 325 MG tablet
325 mg PO DAILY
metoprolol succinate 50 mg Tablet Extended Release 24 Hr
50 mg PO DAILY Qty: 30 0RF
phenazopyridine [Pyridium] 200 mg tablet
200 mg PO TID PRN (Reason: Pain) Qty: 15 0RF
Discontinued
cephalexin 500 mg Capsule
500 mg PO BID Qty: 6 0RF
Discharge Orders:
Discharge Patient (As Directed); Ordered 01/27/25
Ordered By: Roni Herrera
Discharge Date and Time
Print Language: BURKINAN

Documented by User: Rogelio Arita DO 01/27/25 14:22
Discharge Summary
Discharge Data
Date of Admission: 01/24/25
Date of Discharge: 01/27/25
Total time spent discharging patient (in min): 32
Discharge Plan
-
Patient Disposition: Home (Routine Discharge)
Discharge Diagnosis/Procedures: Urinary tract infection, radiation cystitis
Condition: Good
Diet: As tolerated
Activity: With assistance and As tolerated
Driving Restrictions: As prior to admission
Bathing Restrictions: None
Other Services: VN
Referrals:
Washington Harrell DO [Family Provider, Family Practice] - in less than 1 week
Shaw Taylor MD [Active, Urology]
Referral Note: call for appointment in 2-4 weeks
Prescriptions:
New
cefdinir 300 mg capsule
300 mg PO BID Qty: 28 0RF
Continued
multivitamin [One Daily Multivitamin] 1 EACH tablet
1 ea PO DAILY
atorvastatin 40 MG tablet
40 mg PO HS
gabapentin 800 mg Tablet
800 mg PO BID@0800,1600
sennosides [senna] 8.6 mg Tablet
8.6 mg PO DAILY
acetaminophen 325 mg Tablet
650 mg PO DAILY
docusate sodium [Colace] 100 mg Capsule
200 mg PO DAILY
cyanocobalamin (vitamin B-12) [Vitamin B-12] 1,000 mcg Tablet
1,000 mcg PO DAILY
gabapentin 600 mg Tablet
1,200 mg PO HS
cranberry 450 mg Tablet
1,000 mg PO DAILY
prochlorperazine maleate [Compazine] 10 mg tablet
10 mg PO Q8H PRN (Reason: nausea and vomiting) Qty: 10 0RF
fentanyl 100 MCG patch 72 hour
200 mcg transdermal Q72H Qty: 1 0RF
Rx Instructions:
01/14/25: last applied 2 patches 01/12/25
lisinopril 20 mg tablet
20 mg PO DAILY
ondansetron HCl 4 mg tablet
4 mg PO TIDPRN PRN (Reason: nausea)
methenamine hippurate 1 gram tablet
1 g PO BID
famotidine 20 mg tablet
20 mg PO DAILY
ascorbic acid (vitamin C) [Vitamin C] 500 mg tablet
1,000 mg PO DAILY
duloxetine 30 mg capsule,delayed release(DR/EC)
30 mg PO DAILY
duloxetine 60 mg capsule,delayed release(DR/EC)
60 mg PO DAILY
hydromorphone 8 mg tablet
8 mg PO Q4HPRN PRN (Reason: moderate/severe pain)
vitamin E 670 mg (1,000 unit) Capsule
670 mg PO DAILY
acetaminophen [Tylenol] 325 mg Tablet
650 mg PO Q6H PRN (Reason: mild pain)
aspirin 81 mg Tablet,Delayed Release (Dr/Ec)
81 mg PO DAILY
potassium 99 mg Tablet
99 mg PO DAILY
omeprazole 20 mg Capsule,Delayed Release(Dr/Ec)
20 mg PO DAILY
magnesium oxide 250 mg magnesium Tablet
250 mg PO DAILY
bisacodyl 5 mg Tablet
10 mg PO DAILY
vitamin K2 40 mcg Tablet
8.6 mcg PO DAILY
Vitamin A And D Supple
1 dose PO DAILY
polyethylene glycol 3350 [HealthyLax] 17 gram powder in packet
17 g PO DAILYPRN PRN (Reason: constipation)
ferrous sulfate [iron] 325 MG tablet
325 mg PO DAILY
metoprolol succinate 50 mg Tablet Extended Release 24 Hr
50 mg PO DAILY Qty: 30 0RF
phenazopyridine [Pyridium] 200 mg tablet
200 mg PO TID PRN (Reason: Pain) Qty: 15 0RF
Discontinued
cephalexin 500 mg Capsule
500 mg PO BID Qty: 6 0RF
Discharge Orders:
Discharge Patient (As Directed); Ordered 01/27/25
Ordered By: Roni Herrera
Discharge Date and Time
Print Language: BURKINAN
[2025-01-27] MEDS: REMOVE DURAGESIC PATCH 2 PATCH REMOVE (12:21)
[2025-01-27 12:50] VITALS: BP 108/77; O2SAT 95
[2025-01-27 12:53] VITALS: BP 108/77; O2SAT 95
[2025-01-27 14:39] VITALS: BP 128/71
== END 2025-01-27 14:42 | disposition home health service (06) | DRG 699 ==
LOC: 4 WEST ACU 11:01
PROVIDERS: Nurse Practitioner; Student in an Organized Health Care Education/Training Program; ADMITTING PHYSICIAN Internal Medicine; ATTENDING PHYSICIAN Internal Medicine; CONSULT PHYSICIAN Specialist; EMERGENCY PHYSICIAN Emergency Medicine; FAMILY PHYSICIAN Student in an Organized Health Care Education/Training Program
DX: N30.40 Irradiation cystitis without hematuria (principal); I48.92 Unspecified atrial flutter; N20.1 Calculus of ureter; F32.A Depression, unspecified; G47.33 Obstructive sleep apnea (adult) (pediatric); K21.9 Gastro-esophageal reflux disease without esophagitis; I50.9 Heart failure, unspecified; I11.0 Hypertensive heart disease with heart failure; N40.0 Benign prostatic hyperplasia without lower urinary tract symptoms; J44.9 Chronic obstructive pulmonary disease, unspecified; D64.9 Anemia, unspecified; I25.10 Atherosclerotic heart disease of native coronary artery without angina pectoris; Z85.038 Personal history of other malignant neoplasm of large intestine; E11.9 Type 2 diabetes mellitus without complications; Z93.3 Colostomy status; I48.91 Unspecified atrial fibrillation; G89.29 Other chronic pain; Z87.440 Personal history of urinary (tract) infections; Z87.442 Personal history of urinary calculi; E78.00 Pure hypercholesterolemia, unspecified; L89.159 Pressure ulcer of sacral region, unspecified stage; Z79.82 Long term (current) use of aspirin; Z79.899 Other long term (current) drug therapy; Z90.49 Acquired absence of other specified parts of digestive tract; Y84.2 Radiological procedure and radiotherapy as the cause of abnormal reaction of the patient, or of later complication, without mention of misadventure at the time of the procedure; F41.9 Anxiety disorder, unspecified; K59.00 Constipation, unspecified
CPT/HCPCS: 51798; 74176; 80048; 80053; 81003; 81015; 82962; 83735; 85025; 85027; 87070; 87086; 87147; 93005; 96365; 96375; 97163; 97167; 99285

== ENCOUNTER 2025-02-05 16:42 | Inpatient (IN) | payer MEDICARE, OTHER, SELFPAY ==
[2025-02-05] VITALS (10 sets, daily range): BP systolic 104–158; BP diastolic 75–102; BMI 35.0
--- NOTE | 2025-02-05 11:33 | ED.GENMED ---
History of Present Illness
General
Chief Complaint: Urinary Symptoms
Time Seen by Provider: 02/05/25 11:12
History of Present Illness
History of Present Illness:
see MDM
Past History
Past History
ED Past Medical History: Cancer (colon Ca), CHF, HTN, Hypercholesterolemia, NIDDM, Other (Duodenal ulcers), Other (Colon rectal cancer status post colostomy, chronic back pain, diabetes, recurrent UTIs) and Other (chronic pain, kidney stones,
urinary tract infections, dizziness, Ji's palsy)
ED Past Surgical History: Bowel resection (For treatment of rectal cancer, Ileostomy, Chronic sacral decub and abd open wound) and Other ( Rectal surgery, umbilical hernia surgery, Colostomy hernia repair)
Social History
Tobacco: Non-smoker
Alcohol: Occasional
Personal:
Living: alone
Employment: Disabled
Family History
Family History: Other (Noncontributory)
Phy Exam
Physical Exam
Physical Exam:
GENERAL: Alert , uncomfortable, waxing waning pain episodes
EYE: pupils equal and reactive
NECK: Supple
ENT: o/p clr, very dry mouth
CARDIAC: Tachycardic 130
LUNGS: Clear breath sounds bilaterally, no acute respiratory distress, no wheezes/rales/rhonchi
ABDOMEN: postsurgical changes with a nonhealing incision site to his right abdomen with a dressing in place and then an ostomy to his left upper abdominal region
gu: penis is retracted
constant urinary leakage wearing depends
NEUROLOGICAL: Alert and oriented, no focal neuro deficits
SKIN: Warm and dry, skin intact.
MUSCULOSKELETAL: No edema, well perfused. neg amanda's sign
PSYCH: Normal and appropriate interaction.
Course
Orders/Labs/Results
Orders:
Orders
02/05/25 Breakfast
Regular
At Your Request: Full Participation
Does patient need a safe tray?: No
02/05/25 11:33
Bladder Scan- Treatment ONCE
HYDROmorphone [Dilaudid] 1 mg IV NOW STA
Phenazopyridine HCl [Pyridium] 200 mg PO NOW STA
02/05/25 11:36
0.9% Sodium Chloride 1000 ml [Nss] 1,000 ml IV BOLUS
02/05/25 12:53
Complete Blood Count/With Diff Urgent
Comprehensive Metabolic Panel Urgent
02/05/25 13:11
Urinalysis Reflex To Culture Urgent
Date Specimen was Collected: 02/05/25
Time Specimen was Collected: 13:07
Urine Microscopic Reflex Cult Urgent
Urine Culture Urgent
CLEO Source: U
Specimen Description:
Date Specimen was Collected: 02/05/25
Time Specimen was Collected: 13:07
02/05/25 14:42
Electrocardiogram (*1) Urgent
Reason for Study: Tachycardia
EKG- Treatment ONCE
02/05/25 14:50
Metoprolol [Lopressor] 5 mg IV NOW STA
02/05/25 15:17
Metoprolol Xl [Toprol Xl] 50 mg PO NOW STA
02/05/25 15:18
Piperacillin/Tazo 3.375 Gram [Zosyn] 3.375 gram in 50 ml IV NOW
02/05/25 16:17
Admit/Transfer Patient As Directed
Co-Sign Provider:
Level of Care: Inpatient admission
Assign to:: Telemetry
Physician / Group: clara
Diagnosis: UTI
Reason for Telemetry: Arrhythmia
Date to Stop Telemetry: 02/08/25
Time to Stop Telemetry: 11:00
Reason for Hospitalization: UTI
atrial fib with RVR
Expected length of stay greater than two midnights?: Yes
ELOS- Estimated Length of Stay in days: 3
I certify the patient meets the requirements for IP care: Yes
02/05/25 16:18
PRN Pain Medication Management As Directed
May give lesser potent ordered pain med per pt: Yes
preference::
Protocol:: Medication orders for pain may be administered in a
manner that supports deferring to patient preference
when the pt is:
- Requesting an ordered lesser potent pain medication.
Least to most potent pain medications are defined
as: acetaminophen < NSAID < tramadol < opioids
(morphine, oxycodone, hydromorphone).
- Requesting a lesser dose of the same medication IF
ORDERED.
- Requesting a less intrusive route of administration
if both routes are prescribed by the provider (PO <
IV).
02/05/25 16:21
Code Status As Directed
Resuscitation Status: Full Code
02/05/25 17:40
0.9% Sodium Chloride 1000 ml [Nss] 1,000 ml IV 80 mls/hr
Acetaminophen [Tylenol] 650 mg PO Q4HPRN PRN
Bisacodyl [Dulcolax] 10 mg RECTAL [id number] PRN
Docusate W/Senna [Senokot-S] 1 tablet PO BIDPRN PRN
Polyethylene Glycol Powder [Miralax] 17 grams PO DAILYPRN PRN
02/05/25 17:40
Activity As Directed
Activity Level: As Tolerated
Fentanyl Patch Confirmation BID@[id number],1900
Vital Signs As Directed
Frequency: Per unit guidelines
DX Deep Vein Thrombosis Video Routine
02/05/25 17:50
HYDROmorphone [Dilaudid] 8 mg PO Q4HPRN PRN
02/05/25 18:00
FentaNYL 100 MCG/HR PATCH [Duragesic 100 Mcg/Hr Patch] 1 patch TRANSDERM Q72H
REMOVE fentaNYL PATCH [Remove Duragesic Patch] See Dose Instructions REMOVE Q72H
02/05/25 22:00
Atorvastatin [Lipitor] 40 mg PO HS
Gabapentin [Neurontin] 1,200 mg PO HS
Piperacillin/Tazo 3.375 Gram [Zosyn] 3.375 gram in 50 ml IV Q6H
02/06/25 06:00
Complete Blood Count/No Diff IN AM
02/06/25 08:00
Aspirin Low Dose EC [Aspir Low (Enteric Coated)] 81 mg PO DAILY
Bisacodyl [Dulcolax] 10 mg PO DAILY
Cyanocobalamin [Vitamin B-12] 1,000 mcg PO DAILY
Docusate Sodium [Colace] 200 mg PO DAILY
Duloxetine Delayed Release [Cymbalta Delayed Release] 30 mg PO DAILY
Famotidine [Pepcid] 20 mg PO DAILY
Ferrous Sulfate [Feosol] 325 mg PO DAILY
Gabapentin [Neurontin] 800 mg PO BID@0800,1600
Lisinopril [Zestril] 20 mg PO DAILY
Magnesium Oxide 250 mg PO DAILY
Metoprolol Xl [Toprol Xl] 50 mg PO DAILY
Pantoprazole [Protonix] 40 mg PO DAILY
Sennosides [Senokot] 8.6 mg PO DAILY
02/07/25 06:00
Complete Blood Count/No Diff IN AM
02/08/25 06:00
Complete Blood Count/No Diff IN AM
02/08/25 11:00
DC Protocol for Telemetry ONCE
02/09/25 06:00
Complete Blood Count/No Diff IN AM
Abnormal Lab Results
02/05/25 02/05/25
12:53 13:11
WBC 11.1 H 10^3/uL
(4.8-10.8)
RBC 4.48 L 10^6/uL
(4.70-6.10)
Hgb 12.6 L g/dL
(13.0-18.0)
MCHC 31.5 L g/dL
(33.0-37.0)
Plt Count 401 H 10^3/uL
(130-400)
Absolute Neuts (auto) 9.5 H 10^3/uL
(1.4-6.5)
Absolute Lymphs (auto) 0.8 L 10^3/uL
(1.2-3.4)
Neutrophils % 85.9 H %
(42.2-75.2)
Lymphocytes % 7.2 L %
(20.5-51.1)
BUN 26 H mg/dl
(9-20)
Glucose 140 H mg/dl
(70-99)
Ur Occult Blood Reflex 4+ A
(Negative)
Urine Nitrite (Reflex) Positive A
(Negative)
Leukocyte Esterase Rfl 1+ A
(Negative)
Urine RBC 50-60 A /HPF
(0-2)
Urine Bacteria (Reflex) Few A
(Negative)
Urine Albumin (Reflex) 2+ A
(Neg - Trace)
02/05/25 12:53
02/05/25 12:53
Vital Signs
Initial and Last Documented VS:
Initial Vital Signs
Temp Pulse Resp BP Pulse Ox
36.9 C 132 17 154/75 98
02/05/25 09:35 02/05/25 09:35 02/05/25 09:35 02/05/25 09:35 02/05/25 09:35
Last Documented Vital Signs
Temp Pulse Resp BP Pulse Ox
37.3 C 94 18 104/86 96
02/05/25 19:55 02/05/25 19:55 02/05/25 19:55 02/05/25 19:55 02/05/25 19:55
MDM/Problems Addressed
Differential Diagnosis Includes:
see MDM
MDM/Problems Addressed:
Note:
CHIEF COMPLAINT(S)
Severe pain at the tip of the penis and bladder soreness.
HISTORY OF PRESENT ILLNESS
The patient is a 64-year-old male with a complex medical history, including prior pelvic radiation therapy, presenting with severe penile and bladder pain. The patient describes the pain at the end of the penis as feeling like it is 'trying to come
off' and notes overall bladder soreness. 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
The current episode began with pain onset around 3:30 AM, and despite taking hydromorphone, the pain persists and has escalated in intensity. The patient is prescribed hydromorphone 8 mg every four hours and has taken it regularly, but notes that it
provides no significant relief. The patient was also on an undisclosed bladder medication that was taken until it ran out two days prior, providing temporary relief.
The patient mentions a urethral catheter was previously needed due to a hole in the bladder sustained from pelvic surgery and radiation complications. The patient was catheterized for seven months. Currently, the patient wears a pad due to
occasional incontinence. Additionally, there is a history of kidney stones, with one small stone previously removed and another noted in the kidney.
The patient is unable to provide a urine sample due to current difficulty urinating. There is no fever, and the most recent meal was the previous night.
ADDITIONAL HISTORY OBTAINED FROM SOURCES OTHER THAN THE PATIENT
According to EMS, the patient called 911 for transportation to the hospital. The patient lives with a landlady and primarily uses a wheelchair due to limited mobility from lack of cartilage in the left leg.
CHRONIC MEDICAL CONDITIONS SIGNIFICANTLY AFFECTING CARE
1. Chronic pelvic and nerve pain following surgery and radiation therapy.
2. Urological history including a bladder perforation and urethral catheter use.
3. Mobility issues due to lack of cartilage in the left leg.
4. Intermittent urinary incontinence.
SOCIAL DETERMINANTS AFFECTING HEALTH
The patient resides with a landlady, indicating a shared living environment, and has difficulties with mobility requiring a wheelchair and rolling walker. These factors may contribute to the challenges faced in controlling chronic health issues.
SOCIAL HISTORY
The patient has a history of mobility limitations, primarily using a wheelchair for movement due to a lack of cartilage in the left leg.
MEDICATIONS
1. Hydromorphone 8 mg every four hours for pain management.
2. Fentanyl patch, specific dosage not mentioned.
3. Previous use of a bladder medication that turns urine red, recently ran out.
PHYSICAL EXAM
- Nursing notes reviewed and vital signs reviewed.
- The patient experiences spasms, especially noted in the pelvic area.
PROBLEM LIST
Acute:
1. Severe pain in the penis and bladder.
Chronic:
1. Chronic pain from nerve damage.
2. Mobility limitation due to joint issues.
3. Chronic complications related to prior pelvic surgeries and radiation.
PLAN
1. Consideration for pain management that provides adequate relief beyond hydromorphone.
2. Initiate bladder medication that previously provided relief, if appropriate.
3. Evaluation by urology to assess ongoing severe acute urological pain.
4. Explore additional supportive measures to address the incontinence and potential urinary retention.
DIFFERENTIAL DIAGNOSIS
The Differential Diagnosis includes, in no particular order and is not limited to:
1. Radiation-induced cystitis.
2. Bladder or urethral trauma.
3. Renal colic due to kidney stones.
4. Neuropathy involving urinary nerves.
5. Bladder infection.
6. Interstitial cystitis.
7. Urinary retention.
8. Bladder spasm.
9. Prostatitis.
10. Surgical complications affecting the urinary tract.
CARE-UPDATE
02/05/25 - 14:40
Patient has not taken their morning medications, including blood pressure medication (Metoprolol) and may be experiencing bladder-related symptoms, possibly due to infection. There is a change in antibiotic for the infection per Dr. nunez (who is
familiar with patient) recommendation, and the Gonzalez catheter is not necessary at this time given urine output is 200. (PVR, initially was 400 but then was able to void) Patient agreed to hold off on the Gonzalez; however, symptoms persist, though less
frequently. Patients heart rate is better, but a low dose of beta ramila will be administered.
Patient's heart rate ended up elevating higher after brief pain control with IV Dilaudid up into the 150s, he is in a flutter 2-1 block with some mild ST depression, he has no chest pain or shortness of breath. Patient missed his metoprolol today
so he was given IV dose of Lopressor which did help his heart rate into the 1 teens and then he was given his oral metoprolol succinate 50 mg p.o. He was persistently still mildly tachycardic and having ongoing pain and given the complications of
his previous history, contributing factors of his ongoing UTI failing outpatient antibiotics with the A-fib it was discussed with the patient about being hospitalized which he would prefer, he does not feel safe to go home at this time. I discussed
this with the urology attending who did not feel that a formal consult was needed unless the patient developed urinary retention. He is not a candidate for anticoagulation due to frequent hematuria and that he is chronically not anticoagulated. He
had a similar admission recently for the same issues
I do suspect a lot of his issues are related to opiate dependence
*Pulse Oximetry
SaO2: 98
Oxygen Mode of Delivery: Room air
Patient hypoxic: no (98)
*Critical Care Note
Total Time (30-74mins, 75-104mins- exclusive of procedures): Not Applicable
ED Attending Note
-
Portions of this chart may have been created with voice recognition software.� Occasional wrong word or��sound alike� substitutions may have occurred due to the inherent limitations of voice recognition software.
Discharge Plan
Departure
Patient Disposition: Admit
Date of Disposition: 02/05/25
Time of Disposition: 15:18
Admit to: Telemetry
Presentation/result/management discussed w/ accepting MD/DO: Hospitalist
Condition: Fair
Covid-19: Not Applicable
Discharge Problem:
Chronic pain, UTI (urinary tract infection), Failure of outpatient treatment, Atrial flutter with rapid ventricular response
Interventions
Interventions:
*Risk Screen - Suicide Last Done: 02/05/25 09:35
*General Assessment Last Done: 02/05/25 09:35
*Neglect/Abuse Screening Last Done: 02/05/25 12:19
*ED- Fall Risk Assessment Last Done: 02/05/25 12:19
*ED COVID-19 Vaccine History Last Done: 02/05/25 12:19
*Nursing Disposition Last Done: 02/05/25 17:30
ED-Male Genitourinary Assessment Last Done: 02/05/25 12:19
Discharge Date and Time
Discharge Date/Time: 02/05/25 17:31
[2025-02-05] MEDS: DILAUDID 1 MG IV ×2 (12:52→23:22)
[2025-02-05] MEDS: NSS 1000 IV ×2 (12:52→18:10)
[2025-02-05 13:01] LABS: Hematocrit 40.0 % (39.0-52.0); Hemoglobin 12.6 g/dL (13.0-18.0); Mean Corp Hgb Conc. 31.5 g/dL (33.0-37.0); Mean Corpuscular Volume 89.3 fL (80.0-94.0); Nucleated Red Blood Cells % 0 % (-); Platelet Count 401 10^3/uL (130-400); Red Cell Dist. Width 14.2 % (11.5-14.5)
[2025-02-05 13:16] LABS: ALT (SGPT) 17 U/L (0-50); AST (SGOT) 23 U/L (17-59); Albumin 4.1 g/dl (3.5-5.0); Alkaline Phosphatase 124 U/L (38-126); Blood Urea Nitrogen 26 mg/dl (9-20); Calcium 9.3 mg/dl (8.4-10.2); Carbon Dioxide 30 mmol/L (22-30); Chloride 101 mmol/L (98-107); Glucose 140 mg/dl (70-99); Potassium 4.7 mmol/L (3.5-5.1); Sodium 137 mmol/L (135-145); Total Protein 7.6 g/dl (6.3-8.2); eGFR > 60.00
[2025-02-05 13:41] LABS: Urine Character Clear (Clear)
[2025-02-05 14:04] LABS: Urine Squamous Cell 0-2 /LPF (Few)
[2025-02-05 14:06] LABS: Urine Red Blood Cell 50-60 /HPF (0-2)
[2025-02-05] MEDS: LOPRESSOR 5 MG IV (15:01)
--- NOTE | 2025-02-05 15:47 | HPS.HSE ---
Addendum entered and electronically signed by NOA Hearn 02/05/25 17:05:
#DVT prophylaxis
-scd
Original Note:
Family Physician
-
Family Physician: Washington Harrell DO
Chief Complaint
-
bladder spasms
History of Present Illness
64-year-old with past medical history for colon cancer, CHF, hypertension, hyperlipidemia, NIDDM, recurrent UTI, Ji's palsy presented to us with bladder spasms since this morning. Patient stated pain from urethra to penis. He was getting pain
every 20 minutes but spasm lasted for 20. the pain was getting progressively worse and the duration was getting shorter. Patient was not able to void at home, but voided in the ER and he noticed some blood in the urine. He was on cefdinir at
home. Patient did not take Pyridium since Monday. Patient denied any headache, dizzy, fever, chills, chest pain, short of breath. Patient denied any abdominal pain, nausea, vomiting or diarrhea.
Patient received Dilaudid, Toprol, normal saline, Pyridium, Zosyn in the ER. Admitting for further management
Medical History
Past Medical History
Past Medical History: Reports Other
Additional Past Medical History:
Cellulitis and abscess of trunk
Type 2 diabetes,
Hyperlipidemia
Osteomyelitis
Hypertension
Colon cancer
A-fib
Past Surgical History: Reports Other
Additional Past Surgical History:
Kidney stones surgery
Umbilical hernia repair
Ileostomy
Colectomy
Sinus surgery
Social History
Tobacco: Non-smoker
Alcohol: Occasional
Drug: None
Personal: Single
Living: Alone
Family History
Family History: Not pertinent
Allergies / Home Medications
Allergies reflects when Allergies were last updated in [employer].
Home Medications with original date entered in [employer]
Allergy/Medication List:
Allergies
Allergy/AdvReac Type Severity Reaction Status Date / Time
No Known Allergies Allergy Verified 02/05/25 09:36
Home Medications
atorvastatin 40 mg tablet 40 mg PO HS High Cholesterol 07/02/16
multivitamin (One Daily Multivitamin tablet) 1 ea PO DAILY Supplement 07/02/16
acetaminophen 325 mg tablet 650 mg PO DAILY 05/23/23
cranberry fruit 450 mg tablet (cranberry) 1,000 mg PO DAILY Supplement 05/23/23
cyanocobalamin (vitamin B-12) 1,000 mcg tablet (Vitamin B-12) 1,000 mcg PO DAILY Supplement 05/23/23
docusate sodium 100 mg capsule (Colace) 200 mg PO DAILY Constipation 05/23/23
gabapentin 600 mg tablet 1,200 mg PO HS Neurological Condition 05/23/23
gabapentin 800 mg tablet 800 mg PO BID@0800,1600 Neurological Condition 05/23/23
sennosides 8.6 mg tablet (senna) 8.6 mg PO DAILY Constipation 05/23/23
fentanyl 100 mcg/hr transdermal patch 200 mcg transdermal Q72H apply to clean, dry, hairless area on body #1 ea 05/26/23
ascorbic acid (vitamin C) 500 mg tablet (Vitamin C) 1,000 mg PO DAILY Supplement 01/14/25
aspirin 81 mg tablet,delayed release 81 mg PO DAILY Blood Clot Prevention/Tx 01/14/25
bisacodyl 5 mg tablet 10 mg PO DAILY Constipation 01/14/25
duloxetine 30 mg capsule,delayed release 30 mg PO DAILY Mental Health/Anxiety 01/14/25
duloxetine 60 mg capsule,delayed release 60 mg PO DAILY Mental Health/Anxiety 01/14/25
famotidine 20 mg tablet 20 mg PO DAILY Gastrointestinal Issue 01/14/25
ferrous sulfate 325 mg (65 mg iron) tablet (iron) 325 mg PO DAILY Supplement 01/14/25
hydromorphone 8 mg tablet 8 mg PO Q4HPRN PRN moderate/severe pain 01/14/25
lisinopril 20 mg tablet 20 mg PO DAILY Blood Pressure 01/14/25
magnesium oxide 250 mg PO DAILY Supplement 01/14/25
methenamine hippurate 1 gram tablet 1 g PO BID Urinary Issue 01/14/25
omeprazole 20 mg capsule,delayed release 20 mg PO DAILY Gastrointestinal Issue 01/14/25
ondansetron HCl 4 mg tablet 4 mg PO TIDPRN PRN nausea 01/14/25
polyethylene glycol 3350 17 gram oral powder packet (HealthyLax) 17 g PO DAILYPRN PRN constipation 01/14/25
potassium 99 mg tablet 99 mg PO DAILY Supplement 01/14/25
vitamin A-vitamin D3 700 unit-400 unit capsule 1 cap PO DAILY Supplement ##0 01/14/25
vitamin E 670 mg (1,000 unit) capsule 670 mg PO DAILY Supplement 01/14/25
vitamin K2 40 mcg tablet 8.6 mcg PO DAILY Supplement 01/14/25
metoprolol succinate 50 mg tablet,extended release 24 hr 50 mg PO DAILY Blood pressure #30 tabs 01/21/25
cefdinir 300 mg capsule 300 mg PO BID Urinary issue #28 caps 01/27/25
prochlorperazine maleate 10 mg tablet (Compazine) 10 mg PO Q8HPRN PRN nausea and vomiting 02/05/25
Review of Systems
-
Constitutional: Reports No Symptoms
EENT: Reports No Symptoms
Respiratory: Reports No Symptoms
Cardiac: Reports No Symptoms
Abdomen/GI: Reports No Symptoms
: Reports Difficulty Voiding and Other (Spasm)
Musculoskeletal: Reports No Symptoms
Skin: Reports No Symptoms
Neurological: Reports No Symptoms
Endocrine: Reports No Symptoms
Hematologic/Lymphatic: Reports No Symptoms
Psych: Reports No Symptoms
Physical Exam
Vital Signs
Vital Signs
Temp Pulse Resp BP Pulse Ox
98.5 F 118 12 137/102 94
02/05/25 09:35 02/05/25 15:05 02/05/25 15:05 02/05/25 15:05 02/05/25 15:00
Physical Exam
General: Well Developed, Well Nourished and No Apparent Distress
HEENT: NormoCephalic, Moist mucous membranes and Atraumatic
Respiratory: Clear
Cardiac: S1/S2 and Regular Rhythm; No Murmur or Rub
GI: Soft, Non Tender, Non Distended and Normal Bowel Sounds; No Organomegaly
Rectal: Deferred by Provider
Musculoskeletal: No Clubbing, No Cyanosis and No Edema
Skin: No Rash
Neuro: AO x 3 and Nonfocal/grossly intact
Psych: Calm
Laboratory Results
-
02/05/25 12:53
02/05/25 12:53
Laboratory Results
Total Bilirubin 0.6 mg/dl (0.2-1.3) 02/05/25 12:53
AST 23 U/L (17-59) 02/05/25 12:53
ALT 17 U/L (0-50) 02/05/25 12:53
Alkaline Phosphatase 124 U/L (38-126) 02/05/25 12:53
Data Reviewed
-
Lab Data: Labs Reviewed by me
Impression/Plan
-
# Urinary tract infection
# Radiation cystitis
#hxt of proteus mirabilis.
# History of colorectal cancer treated with radiation
- Failing outpatient antibiotic
- WBCs 11.1
- IV Zosyn continued
# Atrial fibrillation with RVR
- Patient received metoprolol in the ER
- Metoprolol continued
#enterocutaneous wound anterior mid abdomen
-Complicated by noted hx of chronic abdominal wound
-wound consult
# Colorectal cancer status post colostomy and ileostomy
continue to monitor
Continue bowel regimen
Senna polyethylene glycol
Omeprazole
Mag oxide
Famotidine
Colace
Bisacodyl
# CHF
stable, preserved EF
continue medications
# HTN
-Continue lisinopril
# Hypercholesterolemia
-cont statin
#Iron deficiency anemia
- Ferrous sulfate continued
# Chronic pain
continue with pain medications
Fentanyl patch
Gabapentin
Hydromorphone
Benadryl for fentanyl patch rash
# Anxiety
- Duloxetine continue
#DVT proph
-Lovenox
CODE STATUS
Full Code
[2025-02-05] MEDS: ZOSYN 50 IV ×2 (16:02→22:24)
[2025-02-05] MEDS: TOPROL XL 50 MG PO (16:02)
--- NOTE | 2025-02-05 16:51 | W.PN.UPDATE ---
Update Note
Progress Note Update
This is an addendum to H&P written by Rizwan Gallego on 02/05/2025. �Patient seen and examined independently with [employer].
64-year-old male past medical history of atrial flutter, atrial fibrillation, colorectal cancer status post colostomy ileostomy and radiation, CAD, CHF, hypertension, hypercholesteremia, diabetes, chronic pain, radiation cystitis, chronic opiate
dependence, COPD, DVT, type 2 diabetes, obstructive sleep apnea, chronic abdomen wound, anemia, BPH, presenting with penile pain, spasms, transient urinary retention.
Recently admitted for UTI with hematuria. �Antibiotics given for continued treatment of prior previous Proteus UTI. �Urine culture was negative.
Vitals show A-fib with RVR heart rate 140s.
Labs show leukocytosis. �Urinalysis with minimal white cells because currently on cefdinir.
Patient with peristent UTI. �Also atrial fibrillation with RVR which responded to Lopressor.�
IV fluids, urine culture, Zosyn. Urology notified and does not recommend formal consult. Tamsulosin recommended as he had 2.7 mm nonobstructing stone lower pole of right kidney. Bladder scan protocol.�
[2025-02-05 17:59] LABS: Glucose - Point of Care 97 mg/dl (70-99)
[2025-02-05] MEDS: FLOMAX PO ×2 (18:10→18:34)
[2025-02-05 21:56] LABS: Glucose - Point of Care 128 mg/dl (70-99)
[2025-02-05] MEDS: LIPITOR 40 MG PO (22:24)
[2025-02-05] MEDS: NEURONTIN 1200 MG PO (22:24)
[2025-02-06] VITALS (7 sets, daily range): BP systolic 108–136; BP diastolic 57–80; BMI 35.0
[2025-02-06] MEDS: ZOSYN 50 IV ×4 (03:47→21:56)
[2025-02-06] MEDS: BENADRYL 25 MG PO ×3 (03:47→14:03)
[2025-02-06] MEDS: DILAUDID 1 MG IV ×4 (04:10→20:34)
[2025-02-06] MEDS: NSS 1000 IV ×2 (06:23→17:36)
[2025-02-06 06:52] LABS: Hematocrit 35.0 % (39.0-52.0); Hemoglobin 10.8 g/dL (13.0-18.0); Mean Corp Hgb Conc. 30.9 g/dL (33.0-37.0); Mean Corpuscular Volume 90.9 fL (80.0-94.0); Platelet Count 359 10^3/uL (130-400); Red Cell Dist. Width 14.4 % (11.5-14.5)
[2025-02-06 09:02] LABS: Glucose - Point of Care 123 mg/dl (70-99)
[2025-02-06] MEDS: MAGNESIUM OXIDE 250 MG PO (09:30)
[2025-02-06] MEDS: SENOKOT 8.6 MG PO (09:30)
[2025-02-06] MEDS: VITAMIN B-12 1000 MCG PO (09:30)
[2025-02-06] MEDS: PEPCID 20 MG PO (09:31)
[2025-02-06] MEDS: ASPIR LOW (ENTERIC COATED) 81 MG PO (09:31)
[2025-02-06] MEDS: PROTONIX 40 MG PO (09:31)
[2025-02-06] MEDS: COLACE 200 MG PO (09:31)
[2025-02-06] MEDS: FEOSOL 325 MG PO (09:31)
[2025-02-06] MEDS: FLOMAX 0.4 MG PO (09:32)
[2025-02-06] MEDS: DULCOLAX 10 MG PO (09:32)
[2025-02-06] MEDS: NEURONTIN 800 MG PO ×2 (09:32→17:35)
[2025-02-06] MEDS: CYMBALTA DELAYED RELEASE 30 MG PO (09:32)
[2025-02-06] MEDS: TOPROL XL 50 MG PO (09:33)
[2025-02-06] MEDS: ZESTRIL 20 MG PO (09:33)
--- NOTE | 2025-02-06 13:20 | CM ---
CM following re: discharge planning.
Reviewed pt's chart, met with pt.
Pt is a 64 year old male, admitted with primary dx of UTI
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 Pt rents rooms in modular home, has 2 bedrooms and full BA, [facility] He is mostly in bed,
does ambulate short distances with rolling walker, also uses wheelchair. Needs assistance with ADLs and personal care. Has ostomy/
Pt reports he has aides through [facility] [facility], Monday through Monday from 9-430, Monday 9-3:30 and Monday 12-630.
Pt also has VN through [facility].
Pt made a strong request to return back home with resumptions of [facility] VN and caregiver services. Pt sttaed his friend might be able to transport him home at discharge.
A referral to [facility] made.
PCP: Washington Harrell
[facility], [facility] for all other meds.
D/C plan: per pt's strong request, return back home with resumptions of [facility] VN and caregiver services.
CM will follow with discharge plan updates as hospitalization progresses
[2025-02-06] MEDS: REMOVE DURAGESIC PATCH 2 PATCH REMOVE (14:01)
--- NOTE | 2025-02-06 14:38 | W.PN.HOSP.TC ---
Today's Communication/Plan
-
Continue with IV Zosyn. Follow-up urine culture data.
Follow-up bladder scan for any residuals and in such case we will place a Gonzalez catheter.
Assessment / Plan
Assessment / Plan
# Urinary tract infection
#Recurrent UTI
# Radiation cystitis
#hxt of proteus mirabilis.
# History of colorectal cancer treated with radiation
- Failing outpatient antibiotic
- WBCs 11.1
- IV Zosyn continued
- Improved bladder spasms. Continue with Pyridium. Follow bladder scan for any residual send if high residuals still place a Gonzalez catheter. Case discussed with Dr. Dumont today.
- Urine culture shows Enterococcus species-continue Zosyn for today-follow culture data
# Atrial fibrillation with RVR
- Patient received metoprolol in the ER
- Metoprolol continued
Rate controlled
#enterocutaneous wound anterior mid abdomen
-Complicated by noted hx of chronic abdominal wound
-wound consult
# Colorectal cancer status post colostomy and ileostomy
continue to monitor
Continue bowel regimen
Senna polyethylene glycol
Omeprazole
Mag oxide
Famotidine
Colace
Bisacodyl
# CHF
stable, preserved EF
continue medications
# HTN
-Continue lisinopril
# Hypercholesterolemia
-cont statin
#Iron deficiency anemia
- Ferrous sulfate continued
# Chronic pain
continue with pain medications
Fentanyl patch
Gabapentin
Hydromorphone
Benadryl for fentanyl patch rash
# Anxiety
- Duloxetine continue
#DVT proph
-Lovenox
CODE STATUS
Full Code
Anticipated Discharge: > 48 hours
Subjective/Interval History
-
Date of Service: February 06, 2025
Improved bladder spasms now every hour compared to prior frequency of every few minutes.
He thinks the urine is flowing easier now. Denies any retentive symptoms.
No nausea vomiting. No fever or chills.
Denies any shortness of breath or chest pain.
Objective Data
-
Labs:
Laboratory Results
02/06/25
05:49
WBC 9.1
Hgb 10.8 L
Hct 35.0 L
Plt Count 359
Vital Signs:
Vital Signs
Temp Pulse Resp BP Pulse Ox
98.7 F 77 18 109/80 95
02/06/25 11:02 02/06/25 11:02 02/06/25 11:02 02/06/25 11:02 02/06/25 11:02
I&O
02/05/25 02/06/25 02/07/25
06:59 06:59 06:59
Intake Total 480 / 480
Output Total 550 / 550
Balance -70 / -70
Physical Exam
-
General: Comfortable
Respiratory: Non Labored Respirations; Negative Accessory Resp Muscle Use
Cardiac: Regular Rhythm and S1/S2
GI: Soft and Nontender
Neuro: AO x 3
Psych: Calm
Data Reviewed
-
Labs: Labs Reviewed by me
[2025-02-06 17:38] LABS: Glucose - Point of Care 97 mg/dl (70-99)
[2025-02-06 21:19] LABS: Glucose - Point of Care 102 mg/dl (70-99)
[2025-02-06] MEDS: LIPITOR 40 MG PO (21:57)
[2025-02-06] MEDS: NEURONTIN 1200 MG PO (21:57)
[2025-02-07] VITALS (8 sets, daily range): BP systolic 98–131; BP diastolic 51–86; PULSE 77; BMI 35.4
[2025-02-07] MEDS: ZOSYN 50 IV ×2 (03:10→11:30)
[2025-02-07] MEDS: DILAUDID 1 MG IV ×5 (03:10→22:48)
[2025-02-07 05:57] LABS: Hematocrit 32.7 % (39.0-52.0); Hemoglobin 10.3 g/dL (13.0-18.0); Mean Corp Hgb Conc. 31.5 g/dL (33.0-37.0); Mean Corpuscular Volume 91.9 fL (80.0-94.0); Platelet Count 304 10^3/uL (130-400); Red Cell Dist. Width 14.3 % (11.5-14.5)
[2025-02-07 07:34] LABS: Glucose - Point of Care 84 mg/dl (70-99)
[2025-02-07] MEDS: FLOMAX 0.4 MG PO (08:07)
[2025-02-07] MEDS: VITAMIN B-12 1000 MCG PO (08:07)
[2025-02-07] MEDS: COLACE 200 MG PO (08:07)
[2025-02-07] MEDS: MAGNESIUM OXIDE 250 MG PO (08:08)
[2025-02-07] MEDS: PEPCID 20 MG PO (08:08)
[2025-02-07] MEDS: PROTONIX 40 MG PO (08:08)
[2025-02-07] MEDS: CYMBALTA DELAYED RELEASE 30 MG PO (08:08)
[2025-02-07] MEDS: NEURONTIN 800 MG PO ×2 (08:09→17:47)
[2025-02-07] MEDS: ASPIR LOW (ENTERIC COATED) 81 MG PO (08:09)
[2025-02-07] MEDS: BENADRYL 25 MG PO ×3 (08:09→17:48)
[2025-02-07] MEDS: SENOKOT 8.6 MG PO (08:09)
[2025-02-07] MEDS: DULCOLAX 10 MG PO (08:09)
[2025-02-07] MEDS: FEOSOL 325 MG PO (08:09)
[2025-02-07] MEDS: TOPROL XL 50 MG PO (08:10)
[2025-02-07] MEDS: ZESTRIL 20 MG PO (08:11)
--- NOTE | 2025-02-07 11:14 | W.PN.HOSP.TC ---
Today's Communication/Plan
-
Monitor vital signs
see plan
Continue with Zosyn
Follow urine culture
PT
Assessment / Plan
Assessment / Plan
# Urinary tract infection
#Recurrent UTI
# Radiation cystitis
#hxt of proteus mirabilis.
# History of colorectal cancer treated with radiation
- Failing outpatient antibiotic
- IV Zosyn continued
- Improved bladder spasms. Continue with Pyridium. Follow bladder scan for any residual send if high residuals still place a Gonzalez catheter. case was discussed with Dr Ovalle.
- Urine culture shows Enterococcus species-continue Zosyn for today-follow culture data
# Atrial fibrillation with RVR
- Patient received metoprolol in the ER
- Metoprolol continued
Rate controlled
#enterocutaneous wound anterior mid abdomen
-Complicated by noted hx of chronic abdominal wound
-wound consult
# Colorectal cancer status post colostomy and ileostomy
continue to monitor
Continue bowel regimen
Senna polyethylene glycol
Omeprazole
Mag oxide
Famotidine
Colace
Bisacodyl
# CHF
stable, preserved EF
continue medications
# HTN
-Continue lisinopril
# Hypercholesterolemia
-cont statin
#Iron deficiency anemia
- Ferrous sulfate continued
# Chronic pain
continue with pain medications
Fentanyl patch
Gabapentin
Hydromorphone
Benadryl for fentanyl patch rash
# Anxiety
- Duloxetine continue
#DVT proph
-Lovenox
CODE STATUS
Full Code
General: Comfortable
Respiratory: Non Labored Respirations; Negative Accessory Resp Muscle Use
Cardiac: Regular Rhythm and S1/S2
GI: Soft and Nontender
Neuro: AO x 3
Psych: Calm
Anticipated Discharge: 24 - 48 hours
Subjective/Interval History
-
Date of Service: February 07, 2025
denies pain
Objective Data
-
Labs:
Laboratory Results
02/07/25
05:41
WBC 8.3
Hgb 10.3 L
Hct 32.7 L
Plt Count 304
Vital Signs:
Vital Signs
Temp Pulse Resp BP Pulse Ox
98.2 F 50 17 110/75 96
02/07/25 07:35 02/07/25 08:11 02/07/25 07:35 02/07/25 08:11 02/07/25 07:35
I&O
02/06/25 02/07/25 02/08/25
06:59 06:59 06:59
Intake Total 480 / 480 1200 / 1200
Output Total 550 / 550 500 / 500
Balance -70 / -70 700 / 700
[2025-02-07 12:27] LABS: Glucose - Point of Care 100 mg/dl (70-99)
--- NOTE | 2025-02-07 14:10 | CM ---
CM following re: discharge planning.
Reviewed pt's chart, met with pt.
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 Pt rents rooms in modular home, has 2 bedrooms and full BA, shares kitchen with jessenia. He is mostly in bed,
does ambulate short distances with rolling walker, also uses wheelchair. Needs assistance with ADLs and personal care. Has ostomy
Pt reports he has aides through [employer], Monday through Monday from 9-430, Monday 9-3:30 and Monday 12-630.
Pt also has VN through [facility].
PT and OT evaluations noted - home PT/OT recommended. Pt is known to [facility]. CM spoke to [facility] liaison and she confirmed that pt is accepted for resumptions of services.
Please fax discharge instructions to [facility] at [phone]
D/C plan: return back home with resumptions of [facility] VN and caregiver services.
CM will follow with discharge plan updates as hospitalization progresses
--- NOTE | 2025-02-07 14:22 | PHA.VAN.IN ---
Assessment
- Assessment
Renal Function: Appears similar to baseline (last labs 02/05)
- Previous Dosing Experience
Previous Regimen: Vanc 1250mg Q12H
Date of Regimen: December 2016
Provided Trough of: 22 - drawn ~11H after 3rd maintenance dose
Patient's SCR is: Decreased compared to previous dosing experience (~0.7 vs ~1 during prior experience)
Patient's weight is: Decreased compared to previous dosing experience (currently ~115kg vs ~155kg during prior experience)
AUC Dosing Plan
- Dosing Variables
Dosing Weight (kg): 115
Dosing CrCl (ml/min): 100
Vd coefficient (L/kg): 0.6
Patient previously did not follow population PK but this was ~7 years prior and patient has since had significant decrease in weight and SCR reduced compared to prior experience
However, remain hesitant to dose at higher dosing than prior experience - will cap est CrCl at 100 ml/min
- Empiric Dosing
Initial / Loading Dose: 2000mg - administration pending
Maintenance Regimen: Vanc 1250mg Q12H starting 02/08 0600
Estimated AUC (mcg*h/mL): 442
Estimated Peak (mcg*h/mL): 27.9
Estimated Trough (mcg/ml): 11.1
Estimated Half Life (H): 7.9
- Monitoring
No levels ordered at this time: consider levels in next few days
Pharmacokinetics Vancomycin I
- -
Patient Age: 64
Patient Sex: Male
Vancomycin Day #: 1
Indication: Genito-Urinary Tract
Requesting Provider: Dr. Zelaya
Pertinent Antimicrobial Allergies:
NKDA
Height / Weight:
Height 5 ft 11 in
Actual Weight 114.957 kg
Pertinent Past Medical History: BMI ~35
- Vital Signs / Lab Results
Temp Pulse Resp BP Pulse Ox
97.7 F 77 16 131/76 97
02/07/25 11:39 02/07/25 11:39 02/07/25 11:39 02/07/25 11:39 02/07/25 11:39
Lab Results - Hematology
02/05/25 02/06/25 02/07/25
12:53 05:49 05:41
WBC 11.1 H 9.1 8.3
Lab Results - Chemistry
02/05/25
12:53
BUN 26 H
Creatinine 0.7
Albumin 4.1
Lab Results - Urine
02/05/25
13:11
Urine Nitrite (Reflex) Positive A
Leukocyte Esterase Rfl 1+ A
Urine WBC (Reflex) 6-10
Ur Squamous Epith Cells 0-2
Urine Bacteria (Reflex) Few A
Microbiology Results
02/05/25 13:11 Urine Culture - Final
Urine Enterococcus faecium
--- NOTE | 2025-02-07 15:32 | CON.ID ---
Consultation
-
Date/Time Consultation Requested: February 07, 2025 1400
Date/Time Consultation Performed: February 07, 2025 1530
Requesting Provider: Dr. Taiwo Zelaya
Performing Provider: Dr. Maru Devi
Reason for Consultation: UTI, resistant Enterococcus
Chief Complaint / Past History
Chief Complaint
penile pain
History of Present Illness
5-mbge-eir-year-old male with diabetes mellitus, atrial fibrillation, remote history of rectal cancer status post radiation and partial colectomy, chemo, radiation cystitis, chronic pelvic pain syndrome due to pelvic nerve injury during partial
colectomy, nephrolithiasis, recent recurrent UTI status post lithotripsy January 15, 2025 who presented to the hospital on February 05 due to complaint of penile pain from the tip to the bladder with transient difficulty urination, typical of his UTI
symptoms. No fever or chills. Urine analysis 1+ nitrite, 1+ leukocyte esterase, 6-10 white blood cells. He was started on Zosyn. However, urine culture grew Enterococcus faecium ampicillin resistant, sensitive to vancomycin and linezolid only.
Zosyn changed to vancomycin.
Past History
Additional Past Medical History:
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
Hypertension
Dyslipidemia
COPD
GERSON
Atrial fibrillation
CAD
CHF
BPH
History of rectal cancer status post XRT to pelvis, partial colectomy (2002), chemo
Colitis s/p total colectomy, colectomy take down, ileostomy reconstruction using right abdominal donor skin graft 2014
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
Radiation cystitis
Nephrolithiasis status post lithotripsy 01/15/25
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
Anxiety
Port
Allergy History:
No Known Allergies Allergy (Verified 02/05/25 09:36)
Medications Reviewed: Yes
Current Antibiotics:
Zosyn x 3d
Vancomycin d1
Social History
Tobacco: Non-Smoker
Alcohol: Occasional
Drug: None
Personal: Single
Living: Alone
Family History
Family History: Not Pertinent
Review of Systems
Review of Systems
General: Negative Fever, Chills or Change in Appetite
HEENT: Negative Sinus Problems or Headache
Respiratory: Negative Dyspnea
Gasteroenterology: Negative Nausea or Vomiting
Genital / Urological: Negative Flank Pain
Endocrine: Negative Weakness
All systems: All other systems were reviewed and were negative
Vital Signs
Temp Pulse Resp BP Pulse Ox
97.7 F 77 16 131/76 97
02/07/25 11:39 02/07/25 11:39 02/07/25 11:39 02/07/25 11:39 02/07/25 11:39
Physical Exam
Physical Exam
Constitutional: No Acute Distress, Obese and Other
Eyes: No Conjunctival Hemorrhage and Sclera Anicteric
Cardiovascular: Regular Rate and S1/S2
Pulmonary: Clear
Gastrointestinal: Soft, Non Tender, Non Distended and Other (left ileostomy in place)
Genito-Urinary: Negative CVA Tenderness
Extremities: Negative Edema
Wound: Other (Right abd skin donor site wound granulating tissue)
Neurological: AO x 3
Lines: Port (LCW no erythema)
Lab / Diagnostic Study Results
02/07/25 05:41
02/05/25 12:53
Abs Immat Gran (auto) 0.0 10^3/uL (0-0.05) 02/05/25 12:53
Absolute Neuts (auto) 9.5 10^3/uL (1.4-6.5) H 02/05/25 12:53
Absolute Lymphs (auto) 0.8 10^3/uL (1.2-3.4) L 02/05/25 12:53
Absolute Monos (auto) 0.6 10^3/uL (0.1-0.6) 02/05/25 12:53
Absolute Basos (auto) 0.0 10^3/uL (0-0.2) 02/05/25 12:53
Immature Gran % 0.4 % (0-0.5) 02/05/25 12:53
Neutrophils % 85.9 % (42.2-75.2) H 02/05/25 12:53
Lymphocytes % 7.2 % (20.5-51.1) L 02/05/25 12:53
Monocytes % 5.3 % (1.7-9.3) 02/05/25 12:53
Eosinophils % 0.8 % (0-6) 02/05/25 12:53
Basophils % 0.4 % (0-2) 02/05/25 12:53
Ur Squamous Epith Cells 0-2 /LPF (Few) 02/05/25 13:11
Microbiology Results
Micro:
02/05/25 13:11 Urine Culture - Final
Urine Enterococcus faecium
Assessment / Plan
# Symptomatic UTI
- Ucx 40K Enterococcus sensitive to Vancomycin and linezolid only
- Unable to use po linezolid due to interaction with duloxetine and fentanyl
- Continue Vancomycin IV x 7 day course.
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
Hypertension
Dyslipidemia
COPD
GERSON
Atrial fibrillation
CAD
CHF
BPH
History of rectal cancer status post XRT to pelvis, partial colectomy (2002), chemo
Colitis s/p total colectomy, colectomy take down, ileostomy reconstruction using right abdominal donor skin graft 2014
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
Radiation cystitis
Nephrolithiasis status post lithotripsy 01/15/25
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
Anxiety
Port
[2025-02-07 16:56] LABS: Glucose - Point of Care 174 mg/dl (70-99)
[2025-02-07] MEDS: VANCOCIN 540 MG IV (17:47)
[2025-02-07] MEDS: LIPITOR 40 MG PO (22:01)
[2025-02-07] MEDS: NEURONTIN 1200 MG PO (22:01)
[2025-02-07 22:04] LABS: Glucose - Point of Care 138 mg/dl (70-99)
[2025-02-08 03:29] VITALS: BP 102/59
[2025-02-08] MEDS: VANCOCIN 275 MG IV ×2 (05:25→17:24)
[2025-02-08 06:00] VITALS: BMI 35.9
[2025-02-08 07:00] VITALS: BP 115/61
[2025-02-08 07:32] LABS: Glucose - Point of Care 114 mg/dl (70-99)
[2025-02-08] MEDS: ASPIR LOW (ENTERIC COATED) 81 MG PO (08:30)
[2025-02-08] MEDS: ZESTRIL 20 MG PO (08:30)
[2025-02-08] MEDS: NEURONTIN 800 MG PO ×2 (08:31→15:23)
[2025-02-08] MEDS: PEPCID 20 MG PO (08:31)
[2025-02-08] MEDS: DULCOLAX 10 MG PO (08:31)
[2025-02-08] MEDS: FEOSOL 325 MG PO (08:31)
[2025-02-08] MEDS: CYMBALTA DELAYED RELEASE 30 MG PO (08:31)
[2025-02-08] MEDS: TOPROL XL 50 MG PO (08:32)
[2025-02-08] MEDS: VITAMIN B-12 1000 MCG PO (08:32)
[2025-02-08] MEDS: MAGNESIUM OXIDE 250 MG PO (08:32)
[2025-02-08] MEDS: SENOKOT 8.6 MG PO (08:32)
[2025-02-08] MEDS: PROTONIX 40 MG PO (08:32)
[2025-02-08] MEDS: COLACE 200 MG PO (08:33)
[2025-02-08] MEDS: FLOMAX PO (08:34)
[2025-02-08] MEDS: DILAUDID 1 MG IV ×3 (08:41→17:28)
[2025-02-08 09:10] LABS: Hematocrit 33.1 % (39.0-52.0); Hemoglobin 10.2 g/dL (13.0-18.0); Mean Corp Hgb Conc. 30.8 g/dL (33.0-37.0); Mean Corpuscular Volume 93.0 fL (80.0-94.0); Nucleated Red Blood Cells % 0 % (-); Platelet Count 282 10^3/uL (130-400); Red Cell Dist. Width 14.5 % (11.5-14.5)
--- NOTE | 2025-02-08 09:27 | PHA.VAN.FU ---
Vancomycin Assessment / Plan
- Assessment
Renal Function: Stable
WBC's are: WNL
In the past 24 hrs, patient has been: Afebrile
- Dosing Plan
Continue: 1250mg Q12H
- Monitoring Plan
No level(s) ordered at this time: Consider levels in next few days
- Follow Up
Pharmacy will continue to follow.
Vancomycin Follow UP
- -
Patient Age: 64
Patient Sex: Male
Vancomycin Day #: 2
Indication: Genito-Urinary Tract
Requesting Provider: Dr. Zelaya
Pertinent Antimicrobial Allergies:
NKDA
Height / Weight:
Height 5 ft 11 in
Actual Weight 116.664 kg
Pertinent Past Medical History: BMI ~35
- Vital Signs / Lab Results
Temp Pulse Resp BP Pulse Ox
98.4 F 72 17 115/61 96
02/08/25 07:00 02/08/25 08:32 02/08/25 07:00 02/08/25 08:32 02/08/25 07:00
Lab Results - Hematology
02/05/25 02/06/25 02/07/25
12:53 05:49 05:41
WBC 11.1 H 9.1 8.3
02/08/25
08:31
WBC 6.9
Lab Results - Chemistry
02/05/25
12:53
BUN 26 H
Creatinine 0.7
Albumin 4.1
Microbiology Results
02/05/25 13:11 Urine Culture - Final
Urine Enterococcus faecium
[2025-02-08 09:41] LABS: Blood Urea Nitrogen 13 mg/dl (9-20); Calcium 7.9 mg/dl (8.4-10.2); Carbon Dioxide 30 mmol/L (22-30); Chloride 108 mmol/L (98-107); Estimated Creatinine Clearance > 125 ml/min; Glucose 96 mg/dl (70-99); Potassium 4.3 mmol/L (3.5-5.1); Sodium 138 mmol/L (135-145); eGFR > 60.00
--- NOTE | 2025-02-08 11:27 | W.PN.HOSP.TC ---
Today's Communication/Plan
-
Monitor vital signs see plan
Continue with IV vancomycin
ID following
Assessment / Plan
Assessment / Plan
# Urinary tract infection
#Recurrent UTI
# Radiation cystitis
#hxt of proteus mirabilis.
# History of colorectal cancer treated with radiation
- Failing outpatient antibiotic
- IV Zosyn continued
- Improved bladder spasms. Continue with Pyridium. Follow bladder scan for any residual send if high residuals still place a Gonzalez catheter. case was discussed with Dr Ovalle.
- Urine culture shows multidrug-resistant Enterococcus species-continue vancomycin, ID following. Likely needs to be discharged on IV antibiotics
# Atrial fibrillation with RVR
- Patient received metoprolol in the ER
- Metoprolol continued
Rate controlled
#enterocutaneous wound anterior mid abdomen
-Complicated by noted hx of chronic abdominal wound
-wound consult
# Colorectal cancer status post colostomy and ileostomy
continue to monitor
Continue bowel regimen
Senna polyethylene glycol
Omeprazole
Mag oxide
Famotidine
Colace
Bisacodyl
# CHF
stable, preserved EF
continue medications
# HTN
-Continue lisinopril
# Hypercholesterolemia
-cont statin
#Iron deficiency anemia
- Ferrous sulfate continued
# Chronic pain
continue with pain medications
Fentanyl patch
Gabapentin
Hydromorphone
Benadryl for fentanyl patch rash
# Anxiety
- Duloxetine continue
#DVT proph
-Lovenox
CODE STATUS
Full Code
General: Comfortable
Respiratory: Non Labored Respirations; Negative Accessory Resp Muscle Use
Cardiac: Regular Rhythm and S1/S2
GI: Soft and Nontender
Neuro: AO x 3
Psych: Calm
Anticipated Discharge: 24 - 48 hours
Subjective/Interval History
-
Date of Service: February 08, 2025
Denies pain
Objective Data
-
Labs:
Laboratory Results
02/08/25
08:31
WBC 6.9
Hgb 10.2 L
Hct 33.1 L
Plt Count 282
Sodium 138
Potassium 4.3
Chloride 108 H
Carbon Dioxide 30
BUN 13
Creatinine 0.7
Glucose 96
Calcium 7.9 L
Vital Signs:
Vital Signs
Temp Pulse Resp BP Pulse Ox
98.4 F 72 17 115/61 96
02/08/25 07:00 02/08/25 08:32 02/08/25 07:00 02/08/25 08:32 02/08/25 07:00
I&O
02/07/25 02/08/25 02/09/25
06:59 06:59 06:59
Intake Total 1200 / 1200 1320 / 1320
Output Total 500 / 500 550 / 550
Balance 700 / 700 770 / 770
[2025-02-08 11:33] VITALS: BP 143/68
[2025-02-08] MEDS: BENADRYL 25 MG PO ×2 (12:50→22:09)
[2025-02-08] MEDS: TYLENOL 650 MG PO (13:56)
[2025-02-08 15:26] VITALS: BP 121/58
[2025-02-08] MEDS: TIGAN 200 MG IM (21:50)
[2025-02-08] MEDS: LIPITOR 40 MG PO (22:59)
[2025-02-08] MEDS: NEURONTIN 1200 MG PO (23:00)
[2025-02-08 23:11] VITALS: BP 139/67
[2025-02-09] MEDS: DILAUDID 1 MG IV ×4 (02:44→22:42)
[2025-02-09] MEDS: FLUSH (NSS) 1 FLUSH IV (02:44)
[2025-02-09 05:35] LABS: Hematocrit 32.6 % (39.0-52.0); Hemoglobin 9.9 g/dL (13.0-18.0); Mean Corp Hgb Conc. 30.4 g/dL (33.0-37.0); Mean Corpuscular Volume 92.1 fL (80.0-94.0); Nucleated Red Blood Cells % 0 % (-); Platelet Count 305 10^3/uL (130-400); Red Cell Dist. Width 14.5 % (11.5-14.5)
[2025-02-09 06:00] VITALS: BMI 37.4
[2025-02-09] MEDS: VANCOCIN 275 MG IV ×2 (06:07→17:43)
[2025-02-09 06:37] LABS: Blood Urea Nitrogen 12 mg/dl (9-20); Calcium 8.3 mg/dl (8.4-10.2); Carbon Dioxide 27 mmol/L (22-30); Chloride 107 mmol/L (98-107); Estimated Creatinine Clearance > 125 ml/min; Glucose 137 mg/dl (70-99); Potassium 4.1 mmol/L (3.5-5.1); Sodium 139 mmol/L (135-145); eGFR > 60.00
[2025-02-09 07:55] VITALS: BP 124/76
[2025-02-09] MEDS: DULCOLAX 10 MG PO (08:41)
[2025-02-09] MEDS: MAGNESIUM OXIDE 250 MG PO (08:41)
[2025-02-09] MEDS: BENADRYL PO (08:41)
[2025-02-09] MEDS: COLACE 200 MG PO (08:41)
[2025-02-09] MEDS: PEPCID 20 MG PO (08:41)
[2025-02-09] MEDS: VITAMIN B-12 1000 MCG PO (08:41)
[2025-02-09] MEDS: PROTONIX 40 MG PO (08:41)
[2025-02-09] MEDS: NEURONTIN 800 MG PO ×2 (08:41→17:41)
[2025-02-09] MEDS: ASPIR LOW (ENTERIC COATED) 81 MG PO (08:42)
[2025-02-09] MEDS: FEOSOL 325 MG PO (08:42)
[2025-02-09] MEDS: CYMBALTA DELAYED RELEASE 30 MG PO (08:42)
[2025-02-09] MEDS: SENOKOT 8.6 MG PO (08:42)
[2025-02-09] MEDS: TOPROL XL 50 MG PO (08:43)
[2025-02-09] MEDS: ZESTRIL 20 MG PO (08:43)
[2025-02-09] MEDS: FLOMAX PO (08:44)
--- NOTE | 2025-02-09 10:07 | PHA.VAN.FU ---
Vancomycin Assessment / Plan
- Assessment
Renal Function: Stable
WBC's are: WNL
In the past 24 hrs, patient has been: Afebrile
- Dosing Plan
Continue: Continue 1250mg Q12H
- Monitoring Plan
No level(s) ordered at this time: Consider levels in next few days
- Follow Up
Pharmacy will continue to follow.
Vancomycin Follow UP
- -
Patient Age: 64
Patient Sex: Male
Vancomycin Day #: 3
Indication: Genito-Urinary Tract
Requesting Provider: Dr. Zelaya
Pertinent Antimicrobial Allergies:
NKDA
Height / Weight:
Height 5 ft 11 in
Actual Weight 116.664 kg
Pertinent Past Medical History: BMI ~35
- Vital Signs / Lab Results
Temp Pulse Resp BP Pulse Ox
97.8 F 74 16 124/76 97
02/09/25 07:55 02/09/25 08:43 02/09/25 07:55 02/09/25 08:43 02/09/25 07:55
Lab Results - Hematology
02/07/25 02/08/25 02/09/25
05:41 08:31 05:06
WBC 8.3 6.9 6.6
Lab Results - Chemistry
02/08/25 02/09/25
08:31 05:06
BUN 13 12
Creatinine 0.7 0.7
Estimated Creat Clear > 125 > 125
Microbiology Results
02/05/25 13:11 Urine Culture - Final
Urine Enterococcus faecium
--- NOTE | 2025-02-09 10:30 | W.PN.HOSP.TC ---
Today's Communication/Plan
-
monitor vitals
see plan
cw IV vanc as recommended by ID
Assessment / Plan
Assessment / Plan
# Urinary tract infection
#Recurrent UTI
# Radiation cystitis
#hxt of proteus mirabilis.
# History of colorectal cancer treated with radiation
- Failing outpatient antibiotic
- Improved bladder spasms. Continue with Pyridium. Follow bladder scan for any residual send if high residuals still place a Gonzalez catheter. case was discussed with Dr Ovalle.
- Urine culture shows multidrug-resistant Enterococcus species-continue vancomycin, ID following. Discussed with ID, will treat with IV vancomycin inpatient
# Atrial fibrillation with RVR
- Patient received metoprolol in the ER
- Metoprolol continued
Rate controlled
#enterocutaneous wound anterior mid abdomen
-Complicated by noted hx of chronic abdominal wound
-wound consult
# Colorectal cancer status post colostomy and ileostomy
continue to monitor
Continue bowel regimen
Senna polyethylene glycol
Omeprazole
Mag oxide
Famotidine
Colace
Bisacodyl
# CHF
stable, preserved EF
continue medications
# HTN
-Continue lisinopril
# Hypercholesterolemia
-cont statin
#Iron deficiency anemia
- Ferrous sulfate continued
# Chronic pain
continue with pain medications
Fentanyl patch
Gabapentin
Hydromorphone
Benadryl for fentanyl patch rash
# Anxiety
- Duloxetine continue
#DVT proph
-Lovenox
CODE STATUS
Full Code
General: Comfortable
Respiratory: Non Labored Respirations; Negative Accessory Resp Muscle Use
Cardiac: Regular Rhythm and S1/S2
GI: Soft and Nontender
Neuro: AO x 3
Psych: Calm
Anticipated Discharge: > 48 hours
Subjective/Interval History
-
Date of Service: February 09, 2025
Denies pain
Objective Data
-
Labs:
Laboratory Results
02/09/25
05:06
WBC 6.6
Hgb 9.9 L
Hct 32.6 L
Plt Count 305
Sodium 139
Potassium 4.1
Chloride 107
Carbon Dioxide 27
BUN 12
Creatinine 0.7
Glucose 137 H
Calcium 8.3 L
Vital Signs:
Vital Signs
Temp Pulse Resp BP Pulse Ox
97.8 F 74 16 124/76 97
02/09/25 07:55 02/09/25 08:43 02/09/25 07:55 02/09/25 08:43 02/09/25 07:55
I&O
02/08/25 02/09/25 02/10/25
06:59 06:59 06:59
Intake Total 1320 / 1320 1655 / 1655
Output Total 550 / 550
Balance 770 / 770 1655 / 1655
--- NOTE | 2025-02-09 12:51 | W.PN.ID1 ---
Date of Service
Date of Service: February 09, 2025
Today's Communication
Continue Vancomycin IV x 7 day course through 02/13/25 inpatient
Assessment / Plan
# Symptomatic UTI
- Ucx Enterococcus sensitive to Vancomycin and linezolid only
- Unable to use po linezolid due to interaction with duloxetine and fentanyl
- Continue Vancomycin IV x 7 day course through 02/13/25 inpatient. [facility], not amenable for home IV abx.
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
Hypertension
Dyslipidemia
COPD
GERSON
Atrial fibrillation
CAD
CHF
BPH
History of rectal cancer status post XRT to pelvis, partial colectomy (2002), chemo
Colitis s/p total colectomy, colectomy take down, ileostomy reconstruction using right abdominal donor skin graft 2014
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
Radiation cystitis
Nephrolithiasis status post lithotripsy 01/15/25
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
Anxiety
Port
Chief Complaint
-: UTI
Subjective / Review of Systems
Penile/urethral pain decreased frequency.
Vital Signs / Physical Exam
Vital Signs
Vital Signs
Temp Pulse Resp BP Pulse Ox
97.8 F 74 16 124/76 97
02/09/25 07:55 02/09/25 08:43 02/09/25 07:55 02/09/25 08:43 02/09/25 07:55
Physical Exam
Constitutional: No Acute Distress and Comfortable
Cardiovascular: Regular Rate and S1/S2
Pulmonary: Clear
Gastrointestinal: Soft, Non Tender and Non Distended
Extremities: Negative Edema
Neurological: AO x 3
Lines: Port (LCW no erythema)
Objective Data
Lab Data
Lab Results
02/09/25 05:06
02/09/25 05:06
Estimated Creat Clear > 125 ml/min 02/09/25 05:06
Total Bilirubin 0.6 mg/dl (0.2-1.3) 02/05/25 12:53
AST 23 U/L (17-59) 02/05/25 12:53
ALT 17 U/L (0-50) 02/05/25 12:53
Alkaline Phosphatase 124 U/L (38-126) 02/05/25 12:53
Most recent labs reviewed.
Micro Results:
02/05/25 13:11 Urine Culture - Final
Urine Enterococcus faecium
Care Review
Plan reviewed with: Physician (Dr. Marixa Zelaya)
[2025-02-09] MEDS: REMOVE DURAGESIC PATCH 2 PATCH REMOVE (13:58)
--- NOTE | 2025-02-09 14:20 | CHAP ---
Visited with Rogelio at length, as he poured out his story and shared thoughts on many different topics. He appreciated having someone to talk to. Emotional and spiritual support provided.
[2025-02-09 15:34] VITALS: BP 100/52
[2025-02-09] MEDS: NEURONTIN 1200 MG PO (21:25)
[2025-02-09] MEDS: LIPITOR 40 MG PO (21:25)
[2025-02-09 23:08] VITALS: BP 105/54
[2025-02-10] MEDS: BENADRYL 25 MG PO (00:26)
[2025-02-10 04:40] LABS: Hematocrit 34.2 % (39.0-52.0); Hemoglobin 10.6 g/dL (13.0-18.0); Mean Corp Hgb Conc. 31.0 g/dL (33.0-37.0); Mean Corpuscular Volume 91.7 fL (80.0-94.0); Nucleated Red Blood Cells % 0 % (-); Platelet Count 338 10^3/uL (130-400); Red Cell Dist. Width 14.3 % (11.5-14.5)
[2025-02-10] MEDS: DILAUDID 1 MG IV ×4 (04:47→22:37)
[2025-02-10] MEDS: VANCOCIN 275 MG IV ×2 (05:11→18:17)
[2025-02-10 06:00] VITALS: BMI 37.5
[2025-02-10 06:28] LABS: Blood Urea Nitrogen 11 mg/dl (9-20); Calcium 7.9 mg/dl (8.4-10.2); Carbon Dioxide 24 mmol/L (22-30); Chloride 111 mmol/L (98-107); Estimated Creatinine Clearance > 125 ml/min; Glucose 95 mg/dl (70-99); Potassium 4.4 mmol/L (3.5-5.1); Sodium 140 mmol/L (135-145); eGFR > 60.00
[2025-02-10 07:11] VITALS: BP 106/60
[2025-02-10] MEDS: CYMBALTA DELAYED RELEASE 30 MG PO (08:52)
[2025-02-10] MEDS: DULCOLAX 10 MG PO (08:52)
[2025-02-10] MEDS: PROTONIX 40 MG PO (08:53)
[2025-02-10] MEDS: FLOMAX 0.4 MG PO (08:53)
[2025-02-10] MEDS: SENOKOT 8.6 MG PO (08:53)
[2025-02-10] MEDS: TOPROL XL PO (08:53)
[2025-02-10] MEDS: ZESTRIL 20 MG PO (08:53)
[2025-02-10] MEDS: ASPIR LOW (ENTERIC COATED) 81 MG PO (08:53)
[2025-02-10] MEDS: PEPCID 20 MG PO (08:54)
[2025-02-10] MEDS: COLACE 200 MG PO (08:54)
[2025-02-10] MEDS: MAGNESIUM OXIDE 250 MG PO (08:54)
[2025-02-10] MEDS: FEOSOL 325 MG PO (08:55)
[2025-02-10] MEDS: VITAMIN B-12 1000 MCG PO (08:55)
[2025-02-10] MEDS: NEURONTIN 800 MG PO ×2 (08:56→16:55)
[2025-02-10] MEDS: DESENEX/MITRAZOL/ZEASORB 1 APPLIC TOPICAL ×2 (08:59→20:05)
--- NOTE | 2025-02-10 09:00 | W.PN.HOSP.TC ---
Today's Communication/Plan
-
ok to give BB today, will d/w staff
Assessment / Plan
Assessment / Plan
Physical exam:
General: Comfortable, not in distress
Respiratory: Non Labored Respirations; Negative Accessory Resp Muscle Use
Cardiac: Regular Rhythm and S1/S2
GI: Soft and Nontender, abdominal wall wound, ostomy, erythema, skin excoriation
Neuro: AO x 3
Psych: Calm
# Urinary tract infection
#Recurrent UTI
# Radiation cystitis
#hxt of proteus mirabilis.
# History of colorectal cancer treated with radiation
- Failing outpatient antibiotic
- Improved bladder spasms. Continue with Pyridium. Follow bladder scan for any residual send if high residuals still place a Gonzalez catheter. case was discussed with Dr Ovalle.
- Urine culture shows multidrug-resistant Enterococcus species-continue vancomycin, ID following. Discussed with ID, will treat with IV vancomycin inpatient through 02/13/25.
#permanent Atrial flutter/ fibrillation with RVR
- Patient received metoprolol in the ER
- Metoprolol continued
Rate controlled
#enterocutaneous wound anterior mid abdomen
-Complicated by noted hx of chronic abdominal wound and obesity/ Panus formation
-wound consult
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
# Colorectal cancer status post colostomy and ileostomy
continue to monitor
Continue bowel regimen
Senna polyethylene glycol
Omeprazole
Mag oxide
Famotidine
Colace
Bisacodyl
# CHF
stable, preserved EF
continue medications
# HTN
-Continue lisinopril
# Hypercholesterolemia
-cont statin
#Iron deficiency anemia
- Ferrous sulfate continued
# Chronic pain with opioid dependency
continue with pain medications
Fentanyl patch
Gabapentin
Hydromorphone
Benadryl for fentanyl patch rash
# Obesity BMI 37
# Anxiety
- Duloxetine continue
#DVT proph
-Lovenox
CODE STATUS
Full Code
Total time spent to see the patient, examine the patient, review data and lab results, discuss treatment plan with patient, nursing staff around 55 minutes
Anticipated Discharge: > 48 hours
Subjective/Interval History
-
Date of Service: February 10, 2025
No chest pain
No sob
Mild abdominal soreness in the wall
Objective Data
-
Labs:
Laboratory Results
02/10/25
04:25
WBC 8.9
Hgb 10.6 L
Hct 34.2 L
Plt Count 338
Sodium 140
Potassium 4.4
Chloride 111 H
Carbon Dioxide 24
BUN 11
Creatinine 0.7
Glucose 95
Calcium 7.9 L
Vital Signs:
Vital Signs
Temp Pulse Resp BP Pulse Ox
98.9 F 58 18 106/60 95
02/10/25 07:11 02/10/25 07:11 02/10/25 07:11 02/10/25 07:11 02/10/25 07:11
I&O
02/09/25 02/10/25 02/11/25
06:59 06:59 06:59
Intake Total 2134 1610 / 1610
Output Total 285 / 285
Balance 2134 / 2134 1325 / 1325
--- NOTE | 2025-02-10 11:09 | CM ---
Patient seen at bedside on 2 . Patient stated that he was talking to his health care provider and CM should return. CM will continue to follow for discharge planning needs.
Plan; home with [facility] vs SNF; [facility] possible
--- NOTE | 2025-02-10 12:09 | PHA.VAN.FU ---
Addendum entered and electronically signed by Deborah Correa [facility] 02/10/25 16:09:
BUN & SCR ordered per protocol
Original Note:
Vancomycin Assessment / Plan
- Assessment
Renal Function: Stable
WBC's are: WNL
In the past 24 hrs, patient has been: Afebrile
- Dosing Plan
Continue: Vanc 1250mg Q12H
- Monitoring Plan
Peak Level: 02/10 21:30
Trough Level: 02/11 05:30
Monitoring Comments: levels to be drawn after 6th maintenance dose
- Follow Up
Pharmacy will continue to follow.
Vancomycin Follow UP
- -
Patient Age: 64
Patient Sex: Male
Vancomycin Day #: 4
Indication: Genito-Urinary Tract
Requesting Provider: Dr. Zelaya / Dr. Devi
Pertinent Antimicrobial Allergies:
NKDA
Height / Weight:
Height 5 ft 11 in
Actual Weight 121.971 kg
Pertinent Past Medical History: BMI ~35
- Vital Signs / Lab Results
Temp Pulse Resp BP Pulse Ox
98.9 F 58 18 106/60 95
02/10/25 07:11 02/10/25 08:53 02/10/25 07:11 02/10/25 08:53 02/10/25 07:11
Lab Results - Hematology
02/08/25 02/09/25 02/10/25
08:31 05:06 04:25
WBC 6.9 6.6 8.9
Lab Results - Chemistry
02/08/25 02/09/25 02/10/25
08:31 05:06 04:25
BUN 13 12 11
Creatinine 0.7 0.7 0.7
Estimated Creat Clear > 125 > 125 > 125
[2025-02-10] MEDS: TOPROL XL 50 MG PO (13:44)
[2025-02-10 15:34] VITALS: BP 125/76
[2025-02-10] MEDS: NEURONTIN 1200 MG PO (21:55)
[2025-02-10] MEDS: LIPITOR 40 MG PO (21:55)
[2025-02-10] MEDS: TYLENOL 650 MG PO (23:04)
[2025-02-10 23:10] VITALS: BP 122/69
[2025-02-11] MEDS: DILAUDID 1 MG IV ×4 (02:49→22:25)
[2025-02-11 05:44] VITALS: BMI 37.6
[2025-02-11] MEDS: VANCOCIN 275 MG IV (06:02)
[2025-02-11 06:19] LABS: Blood Urea Nitrogen 14 mg/dl (9-20); Estimated Creatinine Clearance > 125 ml/min
[2025-02-11 07:00] VITALS: BP 104/69
[2025-02-11] MEDS: SENOKOT 8.6 MG PO (08:47)
[2025-02-11] MEDS: NEURONTIN 800 MG PO ×2 (08:47→15:08)
[2025-02-11] MEDS: ASPIR LOW (ENTERIC COATED) 81 MG PO (08:47)
[2025-02-11] MEDS: PROTONIX 40 MG PO (08:47)
[2025-02-11] MEDS: VITAMIN B-12 1000 MCG PO (08:48)
[2025-02-11] MEDS: DESENEX/MITRAZOL/ZEASORB 1 APPLIC TOPICAL ×2 (08:48→20:29)
[2025-02-11] MEDS: COLACE 200 MG PO (08:48)
[2025-02-11] MEDS: CYMBALTA DELAYED RELEASE 30 MG PO (08:48)
[2025-02-11] MEDS: DULCOLAX 10 MG PO (08:48)
[2025-02-11] MEDS: FLOMAX 0.4 MG PO (08:48)
[2025-02-11] MEDS: MAGNESIUM OXIDE 250 MG PO (08:48)
[2025-02-11] MEDS: ZESTRIL 20 MG PO (08:48)
[2025-02-11] MEDS: TOPROL XL 50 MG PO (08:49)
[2025-02-11] MEDS: PEPCID 20 MG PO (08:49)
[2025-02-11] MEDS: FEOSOL 325 MG PO (08:49)
--- NOTE | 2025-02-11 09:05 | W.PN.HOSP.TC ---
Today's Communication/Plan
-
dc on
Assessment / Plan
Assessment / Plan
Physical exam:
General: Comfortable, not in distress
Respiratory: Non Labored Respirations; Negative Accessory Resp Muscle Use
Cardiac: Regular Rhythm and S1/S2
GI: Soft and Nontender, abdominal wall wound, ostomy, erythema, skin excoriation
Neuro: AO x 3
Psych: Calm
# Urinary tract infection
#Recurrent UTI
# Radiation cystitis
#hxt of proteus mirabilis.
# History of colorectal cancer treated with radiation
- Failing outpatient antibiotic
- Improved bladder spasms. Continue with Pyridium. Follow bladder scan for any residual send if high residuals still place a Gonzalez catheter. case was discussed with Dr Ovalle.
- Urine culture shows multidrug-resistant Enterococcus species-continue vancomycin, ID following. Discussed with ID, will treat with IV vancomycin inpatient through 02/13/25.
#permanent Atrial flutter/ fibrillation with RVR
- Patient received metoprolol in the ER
- Metoprolol continued
Rate controlled
#enterocutaneous wound anterior mid abdomen
-Complicated by noted hx of chronic abdominal wound and obesity/ Panus formation
-wound consult
# History of stage 4 sacral PI POA healed with scarring, now with small opening (1x.2x.1cm). Will deliver wide air bed, also apply wound care. d/w wound care nurse.
# Colorectal cancer status post colostomy and ileostomy
continue to monitor
Continue bowel regimen
Senna polyethylene glycol
Omeprazole
Mag oxide
Famotidine
Colace
Bisacodyl
# CHF
stable, preserved EF
continue medications
# HTN
-Continue lisinopril
# Hypercholesterolemia
-cont statin
#Iron deficiency anemia
- Ferrous sulfate continued
# Chronic pain with opioid dependency
continue with pain medications
Fentanyl patch
Gabapentin
Hydromorphone
Benadryl for fentanyl patch rash
# Obesity BMI 37
# Anxiety
- Duloxetine continue
#DVT proph
-Lovenox
CODE STATUS
Full Code
Total time spent to see the patient, examine the patient, review data and lab results, discuss treatment plan with patient, nursing staff around 55 minutes
Anticipated Discharge: 24 - 48 hours
Subjective/Interval History
-
Date of Service: February 11, 2025
No chest pain
No sob
No abdominal pain
Objective Data
-
Labs:
Laboratory Results
02/11/25
05:48
BUN 14
Creatinine 0.7
Vital Signs:
Vital Signs
Temp Pulse Resp BP Pulse Ox
98 F 73 16 104/69 94
02/11/25 07:00 02/11/25 07:00 02/11/25 07:00 02/11/25 07:00 02/11/25 07:00
I&O
02/10/25 02/11/25 02/12/25
06:59 06:59 06:59
Intake Total 1610 / 1610 2430 / 2430
Output Total 285 / 285 400 / 400
Balance 1325 / 1325 2029 / 2029
--- NOTE | 2025-02-11 09:56 | PHA.VAN.FU ---
Vancomycin Assessment / Plan
- Assessment
Renal Function: Stable
WBC's are: WNL
In the past 24 hrs, patient has been: Afebrile
- Assessment - Therapeutic Drug Monitoring
Extrapolated Cmax (mcg/mL): 42.6
Peak level was drawn: Appropriately (drawn ~2.2H after end of previous infusion)
Extrapolated Cmin (mcg/mL): 16.1
Trough Drawn: Appropriately
Levels were drawn: At steady state (levels drawn after 6th maintenance dose)
Calculated AUC (mcg*h/mL): 659
Calculated ke: 0.0928
Calculated half life (H): 7.5
Calculated Vd (L): 40.8 (~0.3 L/kg)
Calculated Vanc CL (ml/min): 63
- Dosing Plan
Adjust Regimen to: Vanc 1000mg Q12H
New Regimen Predicts: AUC (552), Peak (36.5), Trough (13.1)
- Monitoring Plan
Random Level: consider levels in next few days
- Follow Up
Pharmacy will continue to follow.
Vancomycin Follow UP
- -
Patient Age: 64
Patient Sex: Male
Vancomycin Day #: 5
Indication: Genito-Urinary Tract
Requesting Provider: Dr. Zelaya / Dr. Devi
Pertinent Antimicrobial Allergies:
NKDA
Height / Weight:
Height 5 ft 11 in
Actual Weight 122.107 kg
Pertinent Past Medical History: BMI ~35
- Vital Signs / Lab Results
Temp Pulse Resp BP Pulse Ox
98 F 73 16 104/69 94
02/11/25 07:00 02/11/25 07:00 02/11/25 07:00 02/11/25 07:00 02/11/25 07:00
Lab Results - Hematology
02/09/25 02/10/25
05:06 04:25
WBC 6.6 8.9
Lab Results - Chemistry
02/09/25 02/10/25 02/11/25
05: 04: 05:48
BUN 12 11 14
Creatinine 0.7 0.7 0.7
Estimated Creat Clear > 125 > 125 > 125
Therapeutic Drug Monitoring
Vancomycin Peak 34.7 ug/ml (18-26) H 02/10/25 21:59
Vancomycin Trough 16.8 ug/ml (5-20) 02/11/25 05:48
--- NOTE | 2025-02-11 10:02 | WOUNDNOTE ---
[facility] RN NOTE: Reviewed chart, spoke to RUDI Dejesus and met with patient. Patient is known from prior recent admissions. He performs own wound care to chronic abdominal wounds and just completed wound care last night. He prefers to wait 2-3 days
before removing dressings to protect skin integrity around wounds, so no pictures of abdominal wounds were taken today and patient has not concerns about these wounds. Patient also found to have healing wound on right great toe from when he cut his
nails. This area was provided local wound care as ordered. Patient also has a healed stage 4 PI, now with small opening (1x.2x.1cm). Patient reports that this wound does open periodically and closes again with off-loading. Heels intact. Patient
found on a properly inflated static air overlay. Patient can turn and verbalizes his understanding of need to off-load to protect sacrum. He also reports good PO intake. The sacral wound was cleaned and 5 layer silicone border foam was applied.
Spoke to [facility], who will deliver wide air bed, if possible. RUDI Dejesus given update. TT Dr. Maldonado with update. Patient will be here for IV antibiotic until 02/13. Will follow as needed.
--- NOTE | 2025-02-11 10:10 | WOUNDNOTE ---
RIGHT GREAT TOE
--- NOTE | 2025-02-11 13:43 | CM ---
CM following re: discharge planning.
Reviewed pt's chart, met with pt.
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 Pt rents rooms in modular home, has 2 bedrooms and full BA, shares kitchen with jessenia. He is mostly in bed,
does ambulate short distances with rolling walker, also uses wheelchair. Needs assistance with ADLs and personal care. Has ostomy
Pt reports he has aides through [facility], Monday through Monday from 9-430, Monday 9-3:30 and Monday 12-630.
Pt also has VN through [facility].
PT and OT evaluations noted - home PT/OT recommended. Pt is known to [facility]. CM spoke to [facility] liaison and she confirmed that pt is accepted for resumptions of services.
CM mentioned to me today that his hospital bed is broken and he is dealing with [facility] to get a new bed and experiencing challenging process. CM spoke to [facility] liaison Joe and he is working on resolving new hospital bed issue.
Pt is aware he will stay in the hospital till he completes IV antibiotics treatment - .
Please fax discharge instructions to [facility] at [phone]
D/C plan: return back home with resumptions of [facility] VN and caregiver services.
CM will follow with discharge plan updates as hospitalization progresses
[2025-02-11] MEDS: DILAUDID IV (15:08)
--- NOTE | 2025-02-11 15:14 | PTCARENOTE ---
Patient has bp of 90/54. HR 77. MD made aware. Patient does not c/o of any symptoms besides usual chronic pain.
[2025-02-11 15:31] VITALS: BP 90/54
[2025-02-11] MEDS: VANCOCIN 200 IV (17:17)
[2025-02-11 17:23] VITALS: BP 107/68
[2025-02-11] MEDS: NEURONTIN 1200 MG PO (22:25)
[2025-02-11] MEDS: LIPITOR 40 MG PO (22:25)
[2025-02-11 23:44] VITALS: BP 105/63
[2025-02-12 05:13] VITALS: BMI 38.0
[2025-02-12] MEDS: VANCOCIN 200 IV ×2 (05:21→18:21)
[2025-02-12] MEDS: DILAUDID 1 MG IV ×4 (05:27→23:58)
[2025-02-12 07:34] VITALS: BP 99/62
--- NOTE | 2025-02-12 08:41 | W.PN.HOSP.TC ---
Today's Communication/Plan
-
Discharge on Monday
Patient should do PT so we can know the plan
Assessment / Plan
Assessment / Plan
Physical exam:
General: Comfortable, not in distress
Respiratory: Non Labored Respirations; Negative Accessory Resp Muscle Use
Cardiac: Regular Rhythm and S1/S2
GI: Soft and Nontender, abdominal wall wound, ostomy, erythema, skin excoriation
Neuro: AO x 3
Psych: Calm
# Urinary tract infection
#Recurrent UTI
# Radiation cystitis
#hxt of proteus mirabilis.
# History of colorectal cancer treated with radiation
- Failing outpatient antibiotic
- Improved bladder spasms. Continue with Pyridium. Follow bladder scan for any residual send if high residuals still place a Gonzalez catheter. case was discussed with Dr Ovalle.
- Urine culture shows multidrug-resistant Enterococcus species-continue vancomycin, ID following. Discussed with ID, will treat with IV vancomycin inpatient through 02/13/25.
#permanent Atrial flutter/ fibrillation with RVR
- Patient received metoprolol in the ER
- Metoprolol continued
Rate controlled
#enterocutaneous wound anterior mid abdomen
-Complicated by noted hx of chronic abdominal wound and obesity/ Panus formation
-wound consult
# History of stage 4 sacral PI POA healed with scarring, now with small opening (1x.2x.1cm). Will deliver wide air bed, also apply wound care. d/w wound care nurse.
# Colorectal cancer status post colostomy and ileostomy
continue to monitor
Continue bowel regimen
Senna polyethylene glycol
Omeprazole
Mag oxide
Famotidine
Colace
Bisacodyl
# CHF
stable, preserved EF
continue medications
# HTN
-Continue lisinopril
# Hypercholesterolemia
-cont statin
#Iron deficiency anemia
- Ferrous sulfate continued
# Chronic pain with opioid dependency
continue with pain medications
Fentanyl patch
Gabapentin
Hydromorphone
Benadryl for fentanyl patch rash
# Obesity BMI 37
# Anxiety
- Duloxetine continue
#DVT proph
-Lovenox
CODE STATUS
Full Code
Total time spent to see the patient, examine the patient, review data and lab results, discuss treatment plan with patient, nursing staff around 45 minutes
Anticipated Discharge: Within 24 hours
Subjective/Interval History
-
Date of Service: February 12, 2025
No complaints
Objective Data
-
Vital Signs:
Vital Signs
Temp Pulse Resp BP Pulse Ox
97.6 F 74 16 99/62 93
02/12/25 07:34 02/12/25 07:34 02/12/25 07:34 02/12/25 07:34 02/12/25 07:34
I&O
02/11/25 02/12/25 02/13/25
06:59 06:59 06:59
Intake Total 2430 / 2430 900 / 900
Output Total 400 / 400 675 / 675
Balance 2029 / 2029 225 / 225
--- NOTE | 2025-02-12 08:56 | PHA.VAN.FU ---
Vancomycin Assessment / Plan
- Assessment
Renal Function: Stable
In the past 24 hrs, patient has been: Afebrile
- Dosing Plan
Continue: Vanc 1000mg Q12H
- Monitoring Plan
No level(s) ordered at this time: consider levels in next few days
- Follow Up
Pharmacy will continue to follow.
Vancomycin Follow UP
- -
Patient Age: 64
Patient Sex: Male
Vancomycin Day #: 6
Indication: Genito-Urinary Tract
Requesting Provider: Dr. Zelaya / Dr. Devi
Pertinent Antimicrobial Allergies:
NKDA
Height / Weight:
Height 5 ft 11 in
Actual Weight 123.468 kg
Pertinent Past Medical History: BMI ~35
- Vital Signs / Lab Results
Temp Pulse Resp BP Pulse Ox
97.6 F 74 16 99/62 93
02/12/25 07:34 02/12/25 07:34 02/12/25 07:34 02/12/25 07:34 02/12/25 07:34
Lab Results - Hematology
02/10/25
04:25
WBC 8.9
Lab Results - Chemistry
02/10/25 02/11/25
04:25 05:48
BUN 11 14
Creatinine 0.7 0.7
Estimated Creat Clear > 125 > 125
Therapeutic Drug Monitoring
Vancomycin Peak 34.7 ug/ml (18-26) H 02/10/25 21:59
Vancomycin Trough 16.8 ug/ml (5-20) 02/11/25 05:48
[2025-02-12] MEDS: PEPCID 20 MG PO (09:24)
[2025-02-12] MEDS: MAGNESIUM OXIDE 250 MG PO (09:24)
[2025-02-12] MEDS: VITAMIN B-12 1000 MCG PO (09:25)
[2025-02-12] MEDS: NEURONTIN 800 MG PO ×2 (09:25→18:21)
[2025-02-12] MEDS: FEOSOL 325 MG PO (09:25)
[2025-02-12] MEDS: DULCOLAX 10 MG PO (09:26)
[2025-02-12] MEDS: COLACE 200 MG PO (09:26)
[2025-02-12] MEDS: ZESTRIL PO (09:26)
[2025-02-12] MEDS: PROTONIX 40 MG PO (09:26)
[2025-02-12] MEDS: FLOMAX 0.4 MG PO (09:26)
[2025-02-12] MEDS: ASPIR LOW (ENTERIC COATED) 81 MG PO (09:27)
[2025-02-12] MEDS: TOPROL XL 50 MG PO (09:27)
[2025-02-12] MEDS: CYMBALTA DELAYED RELEASE 30 MG PO (09:27)
[2025-02-12] MEDS: SENOKOT 8.6 MG PO (09:28)
[2025-02-12] MEDS: DESENEX/MITRAZOL/ZEASORB 1 APPLIC TOPICAL ×2 (09:33→21:35)
[2025-02-12] MEDS: REMOVE DURAGESIC PATCH 2 PATCH REMOVE (13:35)
--- NOTE | 2025-02-12 15:02 | WOUNDNOTE ---
STOMA (UPPER L ABDOMEN)
--- NOTE | 2025-02-12 15:06 | WOUNDNOTE ---
[facility] RN Note: Patient seen for ostomy check per RN Shefali's request. Patient does his own ostomy care however, he is out of supplies. He may have someone bring in more of his convex [employer] appliances in. Changed ostomy appliance using Napoleon
wafer # [id number] and Napoleon pouch # [id number]. Patient requested zinc oxide as needed for his stoma which he thinks is inflamed. Stoma pink and functioning for soft brown stool. Will request a prn zinc oxide order per patient request. Nursing can assist
patient with his ostomy appliance changes. Patient is on a [facility] Wide air bed. He declined having his heels elevated off bed with pillow. He states he moves his feet around. Will follow as needed.
--- NOTE | 2025-02-12 15:20 | CM ---
CM following re: discharge planning.
Reviewed pt's chart, met with pt.
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 Pt rents rooms in modular home, has 2 bedrooms and full BA, shares kitchen with jessenia. He is mostly in bed,
does ambulate short distances with rolling walker, also uses wheelchair. Needs assistance with ADLs and personal care. Has ostomy
Pt reports he has aides through [facility], Monday through Monday from 9-430, Monday 9-3:30 and Monday 12-630.
Pt also has VN through [facility].
PT and OT evaluations noted - home PT/OT recommended. Pt is known to [facility]. CM spoke to [facility] liaison and she confirmed that pt is accepted for resumptions of services.
Pt stated that [facility] will not be able to delivery a hospital bed to pt's room till pt removed his old broken hospital bed. Pt stated he has been sleeping on a cotton broker bed for 3 months and when he will return back home he will call [phone] and they will remove his old hospital bed and he will coordinate it with [facility] to delivery a new bed on the same day old bed removed.
Pt is aware he will stay in the hospital till he completes IV antibiotics treatment - .
Please fax discharge instructions to [facility] at [phone]
D/C plan: return back home with resumptions of [facility] and caregiver services.
CM will follow with discharge plan updates as hospitalization progresses
[2025-02-12 15:27] VITALS: BP 114/53
[2025-02-12 23:04] VITALS: BP 132/67
[2025-02-12] MEDS: LIPITOR 40 MG PO (23:52)
[2025-02-12] MEDS: NEURONTIN 1200 MG PO (23:52)
[2025-02-13] MEDS: DILAUDID 1 MG IV ×4 (04:15→21:26)
[2025-02-13] MEDS: TYLENOL 650 MG PO (04:18)
[2025-02-13 06:00] VITALS: BMI 36.3
[2025-02-13] MEDS: VANCOCIN 200 IV ×2 (06:06→18:27)
[2025-02-13 07:00] VITALS: BP 115/53
[2025-02-13] MEDS: FEOSOL 325 MG PO (08:57)
[2025-02-13] MEDS: NEURONTIN 800 MG PO ×2 (08:57→15:40)
[2025-02-13] MEDS: ASPIR LOW (ENTERIC COATED) 81 MG PO (08:57)
[2025-02-13] MEDS: DULCOLAX 10 MG PO (08:57)
[2025-02-13] MEDS: CYMBALTA DELAYED RELEASE 30 MG PO (08:57)
[2025-02-13] MEDS: COLACE 200 MG PO (08:57)
[2025-02-13] MEDS: VITAMIN B-12 1000 MCG PO (08:58)
[2025-02-13] MEDS: MAGNESIUM OXIDE 250 MG PO (08:58)
[2025-02-13] MEDS: ZESTRIL 20 MG PO (08:58)
[2025-02-13] MEDS: PROTONIX 40 MG PO (08:58)
[2025-02-13] MEDS: PEPCID 20 MG PO (08:58)
[2025-02-13] MEDS: SENOKOT 8.6 MG PO (08:58)
[2025-02-13] MEDS: TOPROL XL 50 MG PO (08:59)
[2025-02-13] MEDS: DESENEX/MITRAZOL/ZEASORB 1 APPLIC TOPICAL ×2 (09:04→20:40)
--- NOTE | 2025-02-13 09:05 | W.PN.HOSP.TC ---
Today's Communication/Plan
-
discharge 9 am tomorrow.
Assessment / Plan
Assessment / Plan
Physical exam:
General: Comfortable, not in distress
Respiratory: Non Labored Respirations; Negative Accessory Resp Muscle Use
Cardiac: Regular Rhythm and S1/S2
GI: Soft and Nontender, abdominal wall wound, ostomy, erythema, skin excoriation
Neuro: AO x 3
Psych: Calm
# Urinary tract infection
#Recurrent UTI
# Radiation cystitis
#hxt of proteus mirabilis.
# History of colorectal cancer treated with radiation
- Failing outpatient antibiotic
- Improved bladder spasms. Continue with Pyridium. Follow bladder scan for any residual send if high residuals still place a Gonzalez catheter. case was discussed with Dr Ovalle.
- Urine culture shows multidrug-resistant Enterococcus species-continue vancomycin, ID following. Discussed with ID, will treat with IV vancomycin inpatient through 02/13/25.
#permanent Atrial flutter/ fibrillation with RVR
- Patient received metoprolol in the ER
- Metoprolol continued
Rate controlled
#enterocutaneous wound anterior mid abdomen
-Complicated by noted hx of chronic abdominal wound and obesity/ Panus formation
-wound consult
# History of stage 4 sacral PI POA healed with scarring, now with small opening consistent with stage 2 POA and per patient it tends to open from time to time. Will deliver wide air bed, also apply wound care. d/w wound care nurse.
# Colorectal cancer status post colostomy and ileostomy
continue to monitor
Continue bowel regimen
Senna polyethylene glycol
Omeprazole
Mag oxide
Famotidine
Colace
Bisacodyl
# CHF
stable, preserved EF
continue medications
# HTN
-Continue lisinopril
# Hypercholesterolemia
-cont statin
#Iron deficiency anemia
- Ferrous sulfate continued
# Chronic pain with opioid dependency
continue with pain medications
Fentanyl patch
Gabapentin
Hydromorphone
Benadryl for fentanyl patch rash
# Obesity BMI 37
# Anxiety
- Duloxetine continue
#DVT proph
-Lovenox
CODE STATUS
Full Code
Total time spent to see the patient, examine the patient, review data and lab results, discuss treatment plan with patient, nursing staff around 45 minutes
Anticipated Discharge: Within 24 hours
Subjective/Interval History
-
Date of Service: February 13, 2025
No chest pain
No sob
Objective Data
-
Vital Signs:
Vital Signs
Temp Pulse Resp BP Pulse Ox
98.4 F 73 16 115/53 94
02/13/25 07:00 02/13/25 08:59 02/13/25 07:00 02/13/25 08:59 02/13/25 07:00
I&O
02/12/25 02/13/25 02/14/25
06:59 06:59 06:59
Intake Total 900 / 900 720 / 720
Output Total 675 / 675
Balance 225 / 225 720 / 720
[2025-02-13] MEDS: FLOMAX PO (09:06)
--- NOTE | 2025-02-13 12:49 | PHA.VAN.FU ---
Vancomycin Assessment / Plan
- Assessment
Renal Function: Stable
WBC's are: WNL
In the past 24 hrs, patient has been: Afebrile
- Dosing Plan
Continue: Vanc 1000mg Q12H
- Monitoring Plan
No level(s) ordered at this time: consider levels in next few days
- Follow Up
Pharmacy will continue to follow.
Vancomycin Follow UP
- -
Patient Age: 64
Patient Sex: Male
Vancomycin Day #: 7
Indication: Genito-Urinary Tract
Requesting Provider: Dr. Zelaya / Dr. Devi
Pertinent Antimicrobial Allergies:
NKDA
Height / Weight:
Height 5 ft 11 in
Actual Weight 118.161 kg
Pertinent Past Medical History: BMI ~35
- Vital Signs / Lab Results
Temp Pulse Resp BP Pulse Ox
98.4 F 73 16 115/53 94
02/13/25 07:00 02/13/25 08:59 02/13/25 07:00 02/13/25 08:59 02/13/25 07:00
Lab Results - Chemistry
02/11/25
05:48
BUN 14
Creatinine 0.7
Estimated Creat Clear > 125
Therapeutic Drug Monitoring
Vancomycin Peak 34.7 ug/ml (18-26) H 02/10/25 21:59
Vancomycin Trough 16.8 ug/ml (5-20) 02/11/25 05:48
--- NOTE | 2025-02-13 14:01 | CM ---
CM following re: discharge planning.
Reviewed pt's chart, met with pt.
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 Pt rents rooms in modular home, has 2 bedrooms and full BA, shares kitchen with jessenia. He is mostly in bed,
does ambulate short distances with rolling walker, also uses wheelchair. Needs assistance with ADLs and personal care. Has ostomy
Pt reports he has aides through [facility], Monday through Monday from 9-430, Monday 9-3:30 and Monday 12-630.
Pt also has VN through [facility].
PT and OT evaluations noted - home PT/OT recommended. Pt is known to [facility]. CM spoke to [facility] liaison and she confirmed that pt is accepted for resumptions of services.
Pt reports that [facility] delivered a bed to his house and they will need to come back after pt removed his old broken hospital bed. pt stated he will call [phone] to remove his old hospital bed on Monday and he will coordinate with [facility] to have delivery a hospital bed on Monday.
Pt stated he is aware he will be discharged home tomorrow and he expressed his agreement. IMM reviewed, placed on chart, pt has a copy. Pt requested ambulance transport. Pt stated he already called his caregivers regarding restarting services
tomorrow.
to arrange ambulance transport [facility] for tomorrow 02/14/25. [facility] completed and left with .
Please fax discharge instructions to [facility] at [phone]
D/C plan: return back home with resumptions of [facility] and caregiver services.
CM will follow with discharge plan updates as hospitalization progresses
[2025-02-13 15:00] VITALS: BP 120/54
--- NOTE | 2025-02-13 16:14 | W.PN.ID1 ---
Date of Service
Date of Service: February 13, 2025
Today's Communication
Last day of IV Vancomycin,
ID will sign off.
Assessment / Plan
# Symptomatic UTI
- Ucx Enterococcus sensitive to Vancomycin and linezolid only
- Unable to use po linezolid due to interaction with duloxetine and fentanyl
- Today last day of Vancomycin IV x 7 day course through 02/13/25 inpatient. (Pt lives in [facility], not amenable for home IV abx)
- Recommend he try Pyridium first when he developes bladder/penile spasms.
- Can resume methenamine 1g po bid tomorrow.
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
Hypertension
Dyslipidemia
COPD
GERSON
Atrial fibrillation
CAD
CHF
BPH
History of rectal cancer status post XRT to pelvis, partial colectomy (2002), chemo
Colitis s/p total colectomy, colectomy take down, ileostomy reconstruction using right abdominal donor skin graft 2014
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
Radiation cystitis
Nephrolithiasis status post lithotripsy 01/15/25
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
Anxiety
Port
Chief Complaint
-: UTI
Subjective / Review of Systems
Penile/urethra sxs resolved.
Vital Signs / Physical Exam
Vital Signs
Vital Signs
Temp Pulse Resp BP Pulse Ox
98.4 F 73 16 115/53 94
02/13/25 07:00 02/13/25 08:59 02/13/25 07:00 02/13/25 08:59 02/13/25 07:00
Physical Exam
Constitutional: No Acute Distress and Obese
Cardiovascular: Regular Rate and S1/S2
Pulmonary: Clear
Gastrointestinal: Soft, Non Tender and Non Distended
Neurological: AO x 3
Lines: Port (LCW)
Objective Data
Lab Data
Lab Results
02/10/25 04:25
02/11/25 05:48
Estimated Creat Clear > 125 ml/min 02/11/25 05:48
Total Bilirubin 0.6 mg/dl (0.2-1.3) 02/05/25 12:53
AST 23 U/L (17-59) 02/05/25 12:53
ALT 17 U/L (0-50) 02/05/25 12:53
Alkaline Phosphatase 124 U/L (38-126) 02/05/25 12:53
Most recent labs reviewed.
Micro Results:
02/05/25 13:11 Urine Culture - Final
Urine Enterococcus faecium
Care Review
Plan reviewed with: Physician (Dr. Maldonado)
[2025-02-13] MEDS: LIPITOR 40 MG PO (21:24)
[2025-02-13] MEDS: NEURONTIN 1200 MG PO (21:24)
[2025-02-13 23:16] VITALS: BP 97/48
[2025-02-14 06:00] VITALS: BMI 36.8
[2025-02-14] MEDS: DILAUDID 1 MG IV (06:12)
[2025-02-14 07:00] VITALS: BP 101/53
[2025-02-14] MEDS: VANCOCIN IV (07:03)
--- NOTE | 2025-02-14 08:33 | W.PN.HOSP.TC ---
Today's Communication/Plan
-
Dc planning. Patient remains high risk for readmission due to his living circumstances and medical problems. Patient is fully oriented, lucid and competent to make decisions. He refused SNF placement and wanted to return home with home care
services.
He requested refill for opioids. Per PDMP he should have enough supply at home. Patient has been in the hospital few times since last refill and he was not using his home supplies.
Assessment / Plan
Assessment / Plan
Physical exam:
General: Comfortable, not in distress
Respiratory: Non Labored Respirations; Negative Accessory Resp Muscle Use
Cardiac: Regular Rhythm and S1/S2
GI: Soft and Nontender, abdominal wall wound, ostomy, erythema, skin excoriation
Neuro: AO x 3
Psych: Calm
# Urinary tract infection
#Recurrent UTI
# Radiation cystitis
#hxt of proteus mirabilis.
# History of colorectal cancer treated with radiation
- Failing outpatient antibiotic
- Improved bladder spasms. Continue with Pyridium. Follow bladder scan for any residual send if high residuals still place a Gonzalez catheter. case was discussed with Dr Ovalle.
- Urine culture showed multidrug-resistant Enterococcus species-continue vancomycin, ID following. Discussed with ID, IV vancomycin inpatient through 02/13/25, dc on Pyridium.
#permanent Atrial flutter/ fibrillation with RVR
- Patient received metoprolol in the ER
- Metoprolol continued
Rate controlled
#enterocutaneous wound anterior mid abdomen
-Complicated by noted hx of chronic abdominal wound and obesity/ Panus formation
-wound consult
# History of stage 4 sacral PI POA healed with scarring, now with small opening consistent with stage 2 POA and per patient it tends to open from time to time. Will deliver wide air bed, also apply wound care. d/w wound care nurse.
# Colorectal cancer status post colostomy and ileostomy
continue to monitor
Continue bowel regimen
Senna polyethylene glycol
Omeprazole
Mag oxide
Famotidine
Colace
Bisacodyl
# CHF
stable, preserved EF
continue medications
# HTN
-Continue lisinopril
# Hypercholesterolemia
-cont statin
#Iron deficiency anemia
- Ferrous sulfate continued
# Chronic pain with opioid dependency
continue with pain medications. Pt refused oral Dilaudid while in the hospital, he just wanted IV form.
Fentanyl patch
Gabapentin
Benadryl for fentanyl patch rash
Checked PDMP, his family doctor gave month refill of Dilaudid and Fentanyl in mid December BUT since that date, pt has had few admissions and technically, he should have plenty of opioids at home. Patient asked for Dilaudid refill, was told he was not
eligible for refill from us based on information that we have.
# Obesity BMI 37
# Anxiety
- Duloxetine continue
#DVT proph
-Lovenox
CODE STATUS
Full Code
# Dc planning. Patient remains high risk for readmission due to his living circumstances. Patient is fully oriented, lucid and competent to make decisions. He refused SNF placement and insisted on returning home with home care services.
Total discharge time spent to see the patient, examine the patient, review data and lab results, discuss discharge plan with patient, nursing staff around 67 minutes
Anticipated Discharge: Today
Subjective/Interval History
-
Date of Service: February 14, 2025
No complaints
No chest pain
no sob
No abdominal pain
Objective Data
-
Vital Signs:
Vital Signs
Temp Pulse Resp BP Pulse Ox
98.2 F 75 18 97/48 92
02/13/25 23:16 02/13/25 23:16 02/13/25 23:16 02/13/25 23:16 02/13/25 23:16
I&O
02/13/25 02/14/25 02/15/25
06:59 06:59 06:59
Intake Total 720 / 720 840 / 840
Output Total 400 / 400
Balance 720 / 720 440 / 440
--- NOTE | 2025-02-14 08:37 | CM ---
CM following re: discharge planning.
Reviewed pt's chart, met with pt.
Discharge order noted. Pt is aware, expressed his agreement with discharge and he stated his caregiver will be at his home when he arrives. IMM reviewed yesterday.
Pt confirmed he will have hos new hospital bed delivered on Monday when he removes the old one.
arranged ambulance transport BLS with nut picker time 9:15 a.m. PMNC completed and left with .
Please fax discharge instructions to Rosie at [phone]
D/C plan: return back home with resumptions of [facility] and caregiver services.
[2025-02-14] MEDS: MAGNESIUM OXIDE 250 MG PO (08:56)
[2025-02-14] MEDS: CYMBALTA DELAYED RELEASE 30 MG PO (08:56)
[2025-02-14] MEDS: NEURONTIN 800 MG PO (08:57)
[2025-02-14] MEDS: SENOKOT 8.6 MG PO (08:58)
[2025-02-14] MEDS: ZESTRIL 20 MG PO (08:58)
[2025-02-14] MEDS: VITAMIN B-12 1000 MCG PO (08:58)
[2025-02-14] MEDS: PROTONIX 40 MG PO (08:58)
[2025-02-14] MEDS: ASPIR LOW (ENTERIC COATED) 81 MG PO (08:58)
[2025-02-14] MEDS: TOPROL XL 50 MG PO (08:58)
[2025-02-14] MEDS: FEOSOL 325 MG PO (08:59)
[2025-02-14] MEDS: FLOMAX 0.4 MG PO (08:59)
[2025-02-14] MEDS: COLACE 200 MG PO (08:59)
[2025-02-14] MEDS: PEPCID 20 MG PO (08:59)
[2025-02-14] MEDS: DULCOLAX 10 MG PO (08:59)
[2025-02-14] MEDS: DESENEX/MITRAZOL/ZEASORB TOPICAL (09:46)
--- NOTE | 2025-02-14 10:30 | PTCARENOTE ---
pt discharged to home this morning via ambulance with home care. Pt new preferred pharmacy is the [facility] in [facility] in [place] [id number]. resident given wound care products and pt did wound care and ostomy care within the room.
--- NOTE | 2025-02-14 11:35 | W.DCSUMMARY ---
Discharge Summary
Discharge Data
Date of Admission: 02/05/25
Date of Discharge: 02/14/25
-
Pending Results: No
Hospital Course
[id number]-year-old male presented to the hospital on February 05 due to complaint of penile pain from the tip to the bladder with transient difficulty urination and felt it was similar to UTI symptoms. No fever or chills. Urine analysis 1+ nitrite,
1+ leukocyte esterase, 6-10 white blood cells. He was started on Zosyn. However, urine culture grew Enterococcus faecium ampicillin resistant, sensitive to vancomycin and linezolid only. Zosyn changed to vancomycin. He was evaluated by
infectious diseases doctor and was started on intravenous vancomycin. Unable to use oral linezolid due to interaction with duloxetine and fentanyl. Patient finished the course of IV antibiotic in the hospital as he was living in a trailer and
conditions were not amenable for home IV infusion setting. Patient refused care home facility despite recommendations. Infectious disease doctor recommended to try Pyridium first when he developed bladder/penile spasms. Case discussed with
urology, patient did not have high residuals per bladder scanning. Patient remained hemodynamically stable. He was discharged home with home care services in a stable condition.
Discharge Plan
-
Patient Disposition: Home with Home Care
Discharge Diagnosis/Procedures: Enterococcus UTI. You finished treatment for urinary tract infection. Infectious disease doctor recommendedoral Pyridium for bladder spasm and dysuria.
Condition: Good
Diet: As tolerated
Activity Restrictions/Additional Instructions:
Wound Care Instructions Abdominal wounds- pt does his own wound care.
Sacral Wound (healed stage 4 with 1x.2x.1 open area)- Clean with saline, apply 5 layer sacral silicone border foam. Change Q 48 hours and PRN. Contact WOC RN if wound worsens. Encourage frequent off-loading and repositioning.
Right Great Toe- Clean with normal saline, apply silicone border foam. Change Q 48 hours and PRN.
Follow up at wound care center call for an appointment.
Referrals:
Washington Harrell DO [Family Provider, Family Practice] - in one to two weeks
Prescriptions:
New
phenazopyridine 200 mg Tablet
200 mg PO Q8 Qty: 90 0RF
Continued
multivitamin [One Daily Multivitamin] 1 EACH tablet
1 ea PO DAILY
atorvastatin 40 MG tablet
40 mg PO HS
gabapentin 800 mg Tablet
800 mg PO BID@0800,1600
sennosides [senna] 8.6 mg Tablet
8.6 mg PO DAILY
docusate sodium [Colace] 100 mg Capsule
200 mg PO DAILY
cyanocobalamin (vitamin B-12) [Vitamin B-12] 1,000 mcg Tablet
1,000 mcg PO DAILY
gabapentin 600 mg Tablet
1,200 mg PO HS
cranberry 450 mg Tablet
1,000 mg PO DAILY
fentanyl 100 MCG patch 72 hour
200 mcg transdermal Q72H Qty: 1 0RF
Rx Instructions:
last applied 2 patches 01/31/25
lisinopril 20 mg tablet
20 mg PO DAILY
ondansetron HCl 4 mg tablet
4 mg PO TIDPRN PRN (Reason: nausea)
methenamine hippurate 1 gram tablet
1 g PO BID
famotidine 20 mg tablet
20 mg PO DAILY
ascorbic acid (vitamin C) [Vitamin C] 500 mg tablet
1,000 mg PO DAILY
duloxetine 30 mg capsule,delayed release(DR/EC)
30 mg PO DAILY
duloxetine 60 mg capsule,delayed release(DR/EC)
60 mg PO DAILY
hydromorphone 8 mg tablet
8 mg PO Q4HPRN PRN (Reason: moderate/severe pain)
vitamin E 670 mg (1,000 unit) Capsule
670 mg PO DAILY
aspirin 81 mg Tablet,Delayed Release (Dr/Ec)
81 mg PO DAILY
potassium 99 mg Tablet
99 mg PO DAILY
omeprazole 20 mg Capsule,Delayed Release(Dr/Ec)
20 mg PO DAILY
magnesium oxide 250 mg magnesium Tablet
250 mg PO DAILY
bisacodyl 5 mg Tablet
10 mg PO DAILY
vitamin A-vitamin D3 700-400 unit Capsule
1 cap PO DAILY Qty: 0
vitamin K2 40 mcg Tablet
8.6 mcg PO DAILY
polyethylene glycol 3350 [HealthyLax] 17 gram powder in packet
17 g PO DAILYPRN PRN (Reason: constipation)
ferrous sulfate [iron] 325 MG tablet
325 mg PO DAILY
metoprolol succinate 50 mg Tablet Extended Release 24 Hr
50 mg PO DAILY Qty: 30 0RF
Changed
acetaminophen 325 mg Tablet
650 mg PO TIDPRN PRN (Reason: mild to moderate pain) Qty: 0 0RF
Discontinued
cefdinir 300 mg capsule
300 mg PO BID Qty: 28 0RF
Rx Instructions:
for 14 days starting 01/27/25
prochlorperazine maleate [Compazine] 10 mg tablet
10 mg PO Q8HPRN PRN (Reason: nausea and vomiting)
Discharge Orders:
Discharge Patient (As Directed); Ordered 02/14/25
Ordered By: Attila Maldonado
Discharge Date and Time
Discharge Date/Time: 02/14/25 11:11
Print Language: BELGIAN
--- NOTE | 2025-02-14 11:39 | W.PN.UPDATE ---
Update Note
Progress Note Update
Addendum
I called Dr. Harrell's office to give him updates about patient's status and discharge plan
The doctor was off but spoke to the medical secretary teacher and she was updated about discharge planning, patient finished course of antibiotic, we did not refill opioids.
End
== END 2025-02-14 09:56 | disposition home health service (06) | DRG 690 ==
LOC: 2 NORTH 16:42
PROVIDERS: Internal Medicine; Physician Assistant; Registered Nurse; ADMITTING PHYSICIAN Hospitalist; ATTENDING PHYSICIAN Internal Medicine; CONSULT PHYSICIAN Internal Medicine Infectious Disease; EMERGENCY PHYSICIAN Emergency Medicine; FAMILY PHYSICIAN Student in an Organized Health Care Education/Training Program
DX: N39.0 Urinary tract infection, site not specified (principal); I48.92 Unspecified atrial flutter; I50.32 Chronic diastolic (congestive) heart failure; Z16.11 Resistance to penicillins; B95.2 Enterococcus as the cause of diseases classified elsewhere; Z87.440 Personal history of urinary (tract) infections; N32.89 Other specified disorders of bladder; L89.152 Pressure ulcer of sacral region, stage 2; Z92.3 Personal history of irradiation; Z85.048 Personal history of other malignant neoplasm of rectum, rectosigmoid junction, and anus; Z90.49 Acquired absence of other specified parts of digestive tract; Z93.2 Ileostomy status; I11.0 Hypertensive heart disease with heart failure; E78.00 Pure hypercholesterolemia, unspecified; D50.9 Iron deficiency anemia, unspecified; F41.9 Anxiety disorder, unspecified; E66.9 Obesity, unspecified; Z68.36 Body mass index [BMI] 36.0-36.9, adult; E11.69 Type 2 diabetes mellitus with other specified complication; I48.91 Unspecified atrial fibrillation; Z87.442 Personal history of urinary calculi; K59.00 Constipation, unspecified; J44.9 Chronic obstructive pulmonary disease, unspecified; G47.33 Obstructive sleep apnea (adult) (pediatric); I25.10 Atherosclerotic heart disease of native coronary artery without angina pectoris; N40.0 Benign prostatic hyperplasia without lower urinary tract symptoms; G89.4 Chronic pain syndrome; Z79.82 Long term (current) use of aspirin
CPT/HCPCS: 80048; 80053; 80202; 81003; 81015; 82565; 82962; 84520; 85025; 85027; 87077; 87086; 87186; 93005; 96361; 96374; 96375; 97163; 97167; 97530; 97535; 99285